=== PATIENT | female | born 1960 | race Two or more races ===

== ENCOUNTER 2017-04-28 22:40 | Emergency (ER) | payer OTHER, MEDICAID ==
[~2017-04-28] VITALS: Ht 160 cm; Wt 97.1 kg
[2017-04-29] MEDS: ONDANSETRON HCL 4 MG/2 ML VIAL IV ONE (00:51)
[2017-04-29] MEDS: HYDROmorphone HCL 2 MG/ML VL IV ONE ×2 (00:51→02:21)
[2017-04-29] MEDS: MORPHINE SULF INJ 2 MG/ML SYRINGE 1ML IV ONE (04:50)
[2017-04-29] MEDS: diphenhdrAMINE HCL 50 MG/1 ML VL IV ONE (04:55)
[2017-04-29] MEDS: LOSARTAN POTASSIUM 50 MG TAB PO ONE (05:32)
[2017-04-29 05:55] VITALS: BP 136/83
== END 2017-04-29 06:07 | disposition home or self-care (01) ==
LOC: ER 22:47
DX: S52.615A Nondisplaced fracture of left ulna styloid process, initial encounter for closed fracture (principal); S52.502A Unspecified fracture of the lower end of left radius, initial encounter for closed fracture; S52.602A Unspecified fracture of lower end of left ulna, initial encounter for closed fracture; W01.0XXA Fall on same level from slipping, tripping and stumbling without subsequent striking against object, initial encounter; Y93.89 Activity, other specified; Y99.8 Other external cause status; Y92.89 Other specified places as the place of occurrence of the external cause
CPT/HCPCS: 29125; 73090; 96374; 96375; 96376; 99284; J1170; J2405

== ENCOUNTER 2019-05-10 18:22 | Emergency (ER) | payer MEDICAID, OTHER ==
[~2019-05-10] VITALS: Ht 154.9 cm; Wt 113.4 kg
[2019-05-10 18:33] VITALS: BP 151/103
[2019-05-10] MEDS: KETOROLAC TROMETH 60MG/2ML VIAL IM ONE (21:27)
[2019-05-10] MEDS: methylPREDNISolone SOD SUCC 125 MG/2 ML VL IM ONE (21:27)
== END 2019-05-10 23:57 | disposition home or self-care (01) ==
LOC: EDBD 18:22 → ER 18:26
DX: S72.492A Other fracture of lower end of left femur, initial encounter for closed fracture (principal); S82.192A Other fracture of upper end of left tibia, initial encounter for closed fracture; Z88.6 Allergy status to analgesic agent; W19.XXXA Unspecified fall, initial encounter; Y93.89 Activity, other specified; Y92.89 Other specified places as the place of occurrence of the external cause; Y99.8 Other external cause status
CPT/HCPCS: 73562; 96372; 99283; J1885; J2930

== ENCOUNTER 2020-05-05 15:16 | Emergency (ER) | payer MEDICAID, OTHER ==
[~2020-05-05] VITALS: Ht 160 cm; Wt 101.6 kg
[2020-05-05] MEDS ORDERED: HYDROcodone-ACET 10/325MG TAB PO ONE (16:30)
[2020-05-05 17:21] LABS: Basophils # (auto) 0.1 10 ^3/uL (0-0.2); Eosinophils # (auto) 0.1 10 ^3/uL (0-0.8); Eosinophils % (auto) 1.7 % (0.0-7.0); Lymphocytes # (auto) 1.1 10 ^3/uL (0.4-5.4); Mean Corpuscular Hemoglobin 34.8 pg (28.0-32.0)
[2020-05-05 17:22] LABS: Basophils % (auto) 1.1 % (0.0-2.0); Hemoglobin 11.7 g/dL (12.2-16.2); Lymphocytes % (auto) 16.7 % (10.0-50.0); Mean Corpuscular Hgb Conc. 34.4 g/dL (32.0-36.0); Mean Corpuscular Volume 101.1 fL (80.0-100.0); Monocytes # (auto) 0.8 10 ^3/uL (0-1.3); Monocytes % (auto) 11.4 % (0.0-12.0); Neutrophils # (auto) 4.6 10 ^3/uL (1.6-8.6); Neutrophils % (auto) 69.1 % (37.0-80.0); Platelet Count (auto) 360 10^3/uL (140-450); Red Blood Cells 3.37 10^6/uL (4.0-5.20); Red Cell Distribution Width 13.9 % (11.8-14.3); White Blood Cell 6.6 10^3/uL (4.4-10.8)
[2020-05-05 17:34] LABS: Albumin 3.2 g/dL (3.4-5.0); Anion Gap 6 (5-15); Blood Urea Nitrogen 6 mg/dL (7-18); Calcium 8.5 mg/dL (8.5-10.1); Carbon Dioxide 27 mmol/L (21-32); Chloride 99 mmol/L (98-107); Glucose 106 mg/dL (74-106); Potassium 3.8 mmol/L (3.5-5.1); Sodium 132 mmol/L (136-145)
[2020-05-05 17:43] LABS: Alanine Aminotransferase 16 U/L (13-56); Alkaline Phosphatase 147 U/L (45-117); Aspartate Aminotransferase 25 U/L (15-37); BUN/Creatinine Ratio 7.9; Bilirubin, Total 0.5 mg/dL (0.2-1.0); GFR African American 99 mL/min; GFR Non-African American 82 mL/min; Total Protein 7.8 g/dL (6.4-8.2)
[2020-05-05 18:01] LABS: INR 1.1 (0.9-1.15); Partial Thromboplastin Time 30.9 sec (23.0-31.2)
[2020-05-05 18:19] VITALS: BP 175/65
== END 2020-05-05 18:23 | disposition home or self-care (01) ==
LOC: ER 15:16
DX: S82.202A Unspecified fracture of shaft of left tibia, initial encounter for closed fracture (principal); S82.402A Unspecified fracture of shaft of left fibula, initial encounter for closed fracture; E86.0 Dehydration; W18.39XA Other fall on same level, initial encounter; Y93.89 Activity, other specified; Y92.89 Other specified places as the place of occurrence of the external cause; Y99.8 Other external cause status
CPT/HCPCS: 36415; 73590; 80053; 83880; 84484; 85025; 85610; 85730; 93971

== ENCOUNTER 2022-04-13 14:43 | Inpatient (IN) | payer MEDICAID, OTHER ==
[~2022-04-13] VITALS: Ht 160 cm; Wt 78.5 kg
[2022-04-13] MEDS ORDERED: SODIUM CHLORIDE 0.9% 1,000 ML IV ONE (15:00)
[2022-04-13 16:11] LABS: Albumin 3.4 g/dL (3.4-5.0); BUN/Creatinine Ratio 13.3; Calcium 8.6 mg/dL (8.5-10.1); Potassium 4.2 mmol/L (3.5-5.1)
[2022-04-13 16:12] LABS: Basophils # (auto) 0 10 ^3/uL (0-0.2); Monocytes # (auto) 0.3 10 ^3/uL (0-1.3); Neutrophils # (auto) 3.6 10 ^3/uL (1.6-8.6); Red Cell Distribution Width 14.6 % (11.8-14.3)
[2022-04-13 16:14] LABS: Bilirubin, Total 0.5 mg/dL (0.2-1.0); Total Protein 7.8 g/dL (6.4-8.2)
[2022-04-13 16:15] LABS: Basophils % (auto) 0.6 % (0.0-2.0); Eosinophils # (auto) 0 10 ^3/uL (0-0.8); Eosinophils % (auto) 0.9 % (0.0-7.0); Hematocrit 33.3 % (36.0-46.0); Hemoglobin 11.6 g/dL (12.2-16.2); Mean Corpuscular Hemoglobin 35.8 pg (28.0-32.0); Mean Corpuscular Volume 102.4 fL (80.0-100.0); Monocytes % (auto) 6.9 % (0.0-12.0); Neutrophils % (auto) 71.6 % (37.0-80.0); Nucleated Red Blood Cells % 0.4 %; Red Blood Cells 3.25 10^6/uL (4.0-5.20)
[2022-04-13 16:32] LABS: Partial Thromboplastin Time 27.3 sec (24.6-33.4)
[2022-04-13] MEDS ORDERED: LIDOCAINE 1% HCL (LOCAL ANESTH.) INJ 20ML MDV ID ONE (18:00)
[2022-04-13] MEDS ORDERED: TETANUS-DIPTH-ACEL PERTUSSIS 0.5ML SYR Tdap IM ONE (18:45)
[2022-04-13] MEDS ORDERED: cefTRIAXone 1GM/50ML D5W 50 ML IV ONE (20:30)
[2022-04-13 20:35] LABS: Urine Bacteria FEW /hpf (None Seen); Urine Blood 3+ /uL (Negative); Urine Hyaline Cast FEW /lpf (0 - 2); Urine Specific Gravity 1.013 (1.001-1.035); Urine WBC 329 /hpf (0 - 5); Urine WBC Clumps PRESENT /hpf (None Seen)
[2022-04-13] MEDS ORDERED: HYDROmorphone HCL 2 MG/ML VL/or syr IV ONE (20:45)
[2022-04-13] MEDS ORDERED: HYDROmorphone HCL 2 MG/ML VL/or syr IV PRN (23:15)
[2022-04-13] MEDS: SODIUM CHLORIDE 0.9% 1,000 ML IV SCH (23:15)
[2022-04-13] MEDS ORDERED: LORazepam 0.5 MG TAB PO PRN (23:15)
[2022-04-13] MEDS ORDERED: ACETAMINOPHEN 325 MG TAB PO PRN (23:15)
[2022-04-13] MEDS ORDERED: MAALOX PLUS or MAALOX 30 ML PO PRN (23:15)
[2022-04-13] MEDS ORDERED: TEMAZEPAM 15 MG CAP PO PRN (23:15)
[2022-04-14] MEDS: HYDROmorphone HCL 2 MG/ML VL/or syr IV PRN ×4 (00:02→20:57)
[2022-04-14 06:26] LABS: Potassium 4.1 mmol/L (3.5-5.1)
[2022-04-14 06:32] LABS: Calcium 8.5 mg/dL (8.5-10.1)
[2022-04-14] MEDS: ONDANSETRON HCL 4 MG/2 ML VIAL IV PRN ×2 (08:25→20:57)
[2022-04-14 08:38] LABS: Basophils # (auto) 0.1 10 ^3/uL (0-0.2); Basophils % (auto) 1.1 % (0.0-2.0); Eosinophils # (auto) 0.1 10 ^3/uL (0-0.8); Eosinophils % (auto) 1.3 % (0.0-7.0); Hematocrit 30.2 % (36.0-46.0); Hemoglobin 10.4 g/dL (12.2-16.2); Lymphocytes # (auto) 1.7 10 ^3/uL (0.4-5.4); Lymphocytes % (auto) 25.1 % (10.0-50.0); Mean Corpuscular Hemoglobin 35.6 pg (28.0-32.0); Mean Corpuscular Hgb Conc. 34.5 g/dL (32.0-36.0); Mean Corpuscular Volume 103.1 fL (80.0-100.0); Monocytes # (auto) 0.7 10 ^3/uL (0-1.3); Monocytes % (auto) 10.9 % (0.0-12.0); Neutrophils # (auto) 4.1 10 ^3/uL (1.6-8.6); Neutrophils % (auto) 61.6 % (37.0-80.0); Nucleated Red Blood Cells % 0.2 %; Red Blood Cells 2.93 10^6/uL (4.0-5.20); Red Cell Distribution Width 14.6 % (11.8-14.3); White Blood Cell 6.7 10^3/uL (4.4-10.8)
[2022-04-14] MEDS: cefTRIAXone 1GM/50ML D5W 50 ML IV SCH (10:15)
[2022-04-14] MEDS: SODIUM CHLORIDE 0.9% 1,000 ML IV SCH (15:55)
[2022-04-14 22:00] VITALS: BP 155/58
[2022-04-14] MEDS ORDERED: HYDR-4902 PO (22:26)
[2022-04-14] MEDS ORDERED: GABA100C9 PO (22:26)
[2022-04-14 22:27] VITALS: BP 155/58
[2022-04-14 22:30] VITALS: BP 155/58
[2022-04-14] MEDS ORDERED: diphenhdrAMINE HCL 25 MG CAP PO ONE (23:15)
[2022-04-15 05:00] VITALS: BP 180/52
[2022-04-15 06:23] LABS: INR 1.16 (0.9-1.15); Partial Thromboplastin Time 31.6 sec (24.6-33.4)
[2022-04-15 06:26] LABS: BUN/Creatinine Ratio 17.9; Potassium 3.1 mmol/L (3.5-5.1)
[2022-04-15 08:37] VITALS: BP 167/69
[2022-04-15] MEDS: HYDROmorphone HCL 2 MG/ML VL/or syr IV PRN ×3 (09:27→16:56)
[2022-04-15] MEDS: SODIUM CHLORIDE 0.9% 1,000 ML IV SCH (09:28)
[2022-04-15] MEDS ORDERED: POTASSIUM CHL 20 Meq TABLET PO ONE (10:30)
[2022-04-15] MEDS: cefTRIAXone 1GM/50ML D5W 50 ML IV SCH (10:50)
[2022-04-15 12:55] VITALS: BP 165/72
[2022-04-15] MEDS: DOCUSATE SOD 100 MG CAP PO PRN (16:55)
[2022-04-15] MEDS: amLODIPine BESYLATE 5 MG TAB PO SCH (16:55)
[2022-04-15 17:00] VITALS: BP 150/59
[2022-04-15 22:00] VITALS: BP 149/64
[2022-04-16 05:00] VITALS: BP 155/70
[2022-04-16 09:00] VITALS: BP 170/73
[2022-04-16] MEDS: cefTRIAXone 1GM/50ML D5W 50 ML IV SCH (09:53)
[2022-04-16] MEDS: amLODIPine BESYLATE 5 MG TAB PO SCH (09:54)
[2022-04-16] MEDS: HYDROmorphone HCL 2 MG/ML VL/or syr IV PRN (09:57)
[2022-04-16] MEDS ORDERED: ceFAZolin 1GM/50ML 50 ML IV ONE (12:22)
[2022-04-16] MEDS ORDERED: MIDAZOLAM HCL 2MG/2ML 2ml VIAL (1mg/ml) ONE (12:56)
[2022-04-16] MEDS ORDERED: MEPERIDINE HCL (50 MG/ML) 1 ML VIAL ONE (12:56)
[2022-04-16] MEDS ORDERED: fentaNYL CITRATE 100 MCG/2 ML VL ONE (12:56)
[2022-04-16] MEDS ORDERED: BUPIVACAINE 0.25% INJ 50ML VIAL ONE (12:57)
[2022-04-16 13:00] VITALS: BP 145/64
[2022-04-16] MEDS ORDERED: PROPOFOL 10 MG/ML 20 ML IV ONE (13:27)
[2022-04-16] MEDS ORDERED: DexAMETHasone SOD PHOS 10MG/1ML VIAL INJ ONE (13:27)
[2022-04-16] MEDS ORDERED: hydrALAZINE HCL 20 MG/ML VL IV PRN (13:30)
[2022-04-16] MEDS ORDERED: MIDAZOLAM HCL 2MG/2ML 2ml VIAL (1mg/ml) IV PRN (13:30)
[2022-04-16] MEDS ORDERED: fentaNYL CITRATE 100 MCG/2 ML VL IV PRN (13:30)
[2022-04-16] MEDS ORDERED: ONDANSETRON HCL 4 MG/2 ML VIAL IV PRN (13:30)
[2022-04-16] MEDS ORDERED: HYDROmorphone HCL 2 MG/ML VL/or syr IV PRN (13:30)
[2022-04-16] MEDS ORDERED: LABETALOL HCL 5 MG/ML 4ML SYRINGE IV PRN (13:30)
[2022-04-16] MEDS ORDERED: ePHEDrine SULFATE 50 MG/ML AMP IV PRN (13:30)
[2022-04-16] MEDS ORDERED: ACETAMINOPHEN 325 MG TAB PO PRN (14:00)
[2022-04-16] MEDS ORDERED: ONDANSETRON HCL 4 MG/2 ML VIAL IV ONE (14:30)
[2022-04-16 17:00] VITALS: BP 149/58
[2022-04-16] MEDS: DOCUSATE SOD 100 MG CAP PO PRN (19:55)
[2022-04-16] MEDS: HYDROcodone-ACET 5/325MG TAB PO PRN (19:56)
[2022-04-16 22:00] VITALS: BP 112/91
[2022-04-17 05:00] VITALS: BP 152/63
[2022-04-17] MEDS: OXYCODONE W/ ACETAMINOPHEN 5/325MG TABLET PO PRN ×2 (05:16→11:01)
[2022-04-17 09:00] VITALS: BP 154/73
[2022-04-17] MEDS: cefTRIAXone 1GM/50ML D5W 50 ML IV SCH (09:55)
[2022-04-17] MEDS: amLODIPine BESYLATE 5 MG TAB PO SCH (09:56)
[2022-04-17] MEDS ORDERED: BACDST PO (13:45)
[2022-04-17] MEDS ORDERED: HYDR-4902 PO (13:45)
[2022-04-17] MEDS: HYDROcodone-ACET 5/325MG TAB PO PRN (14:05)
[2022-04-17 17:13] VITALS: BP 133/56
[2022-04-17 19:05] VITALS: BP 133/56
== END 2022-04-17 19:30 | disposition home health service (06) | DRG 315 ==
LOC: ER 14:43 → OVERFLOW 23:12 → WEST WING 04-14 21:13
PROVIDERS: ADMIT Hospitalist; ATTEND Hospitalist
PROC: 0PSH34Z Reposition Right Radius with Internal Fixation Device, Percutaneous Approach (ICD-10-PCS; principal; 2022-04-16 13:15)
DX: S52.591A Other fractures of lower end of right radius, initial encounter for closed fracture (principal); E87.1 Hypo-osmolality and hyponatremia; S01.81XA Laceration without foreign body of other part of head, initial encounter; S52.611A Displaced fracture of right ulna styloid process, initial encounter for closed fracture; E66.9 Obesity, unspecified; E86.0 Dehydration; Z20.822 Contact with and (suspected) exposure to COVID-19; W05.0XXA Fall from non-moving wheelchair, initial encounter; M17.10 Unilateral primary osteoarthritis, unspecified knee; N39.0 Urinary tract infection, site not specified; I10 Essential (primary) hypertension; Z99.3 Dependence on wheelchair; Z88.6 Allergy status to analgesic agent; Z68.30 Body mass index [BMI] 30.0-30.9, adult; Y93.89 Activity, other specified; Y92.89 Other specified places as the place of occurrence of the external cause; Y99.8 Other external cause status
CPT/HCPCS: 12014; 36415; 70450; 71045; 72125; 73100; 76000; 80048; 80053; 81001; 83880; 84484; 85025; 85610; 85730; 87426; 90471; 90715; 93306; 96361; 96365; 96366; 96375; 96376; 97163; G0378; J0690; J0696; J1100; J2001; J2250; J2405; J2704; J3490

== ENCOUNTER → 2022-06-04 | Day surgery (SDC) | payer MEDICAID ==
[~2022-06-04] VITALS: Ht 160 cm; Wt 78.9 kg
[~2022-06-04] MED LIST: ASCO500T11 PO; BACL20TA PO; BENA20TA14 PO; BUPIVACAINE 0.5% P/F INJ 10 ML VIAL ONE; CALC667C5 PO; CHOL200021 PO; DexAMETHasone SOD PHOS 10MG/1ML VIAL INJ ONE; GABA-339 PO; HYDR-4902 PO; HYDROmorphone HCL 2 MG/ML VL/or syr IV PRN; LIDOCAINE W/ EPINEPHRINE 2% INJ 20ML VIAL ONE; METOCLOPRAMIDE HCL 5MG/ml INJ 2ml VIAL IV PRN; MIDAZOLAM HCL 2MG/2ML 2ml VIAL (1mg/ml) ONE; MORPHINE SULFATE INJ 2 MG/ml SYRG IV PRN; ONDANSETRON HCL 4 MG/2 ML VIAL ONE; PANT40TA2 PO; PROPOFOL 10 MG/ML 20 ML IV ONE; SIMV-8 PO; SODIUM CHLORIDE LOCK 10 ML ONE; VENL1TAB99 PO; ceFAZolin 1GM/50ML 100 ML IV ONE; fentaNYL CITRATE 100 MCG/2 ML VL ONE
[2022-06-04 14:00] VITALS: BP 162/59
== END | disposition home or self-care (01) ==
LOC: SUR 10:09
PROVIDERS: ATTEND Orthopaedic Surgery
DX: S52.501D Unspecified fracture of the lower end of right radius, subsequent encounter for closed fracture with routine healing (principal); I10 Essential (primary) hypertension; F41.8 Other specified anxiety disorders; E78.5 Hyperlipidemia, unspecified; M79.7 Fibromyalgia; Z79.899 Other long term (current) drug therapy; Z98.51 Tubal ligation status; Z91.040 Latex allergy status; Z47.2 Encounter for removal of internal fixation device; Z98.891 History of uterine scar from previous surgery; Z87.891 Personal history of nicotine dependence; Z98.890 Other specified postprocedural states; Z20.822 Contact with and (suspected) exposure to COVID-19; X58.XXXA Exposure to other specified factors, initial encounter; Y92.89 Other specified places as the place of occurrence of the external cause; Y93.9 Activity, unspecified; Y99.8 Other external cause status
CPT/HCPCS: 20680; J0690; J1100; J2250; J2405; J2704; J3010; J3490; U0003

== ENCOUNTER 2024-07-01 11:44 | Inpatient (IN) | payer OTHER, MEDICAID ==
[~2024-07-01] VITALS: Ht 160 cm; Wt 100.0 kg
[~2024-07-01 11:44] MED LIST changes: +BENA-36 PO; -BENA20TA14 PO; -BUPIVACAINE 0.5% P/F INJ 10 ML VIAL ONE; -DexAMETHasone SOD PHOS 10MG/1ML VIAL INJ ONE; -HYDROmorphone HCL 2 MG/ML VL/or syr IV PRN; -LIDOCAINE W/ EPINEPHRINE 2% INJ 20ML VIAL ONE; -METOCLOPRAMIDE HCL 5MG/ml INJ 2ml VIAL IV PRN; -MIDAZOLAM HCL 2MG/2ML 2ml VIAL (1mg/ml) ONE; -MORPHINE SULFATE INJ 2 MG/ml SYRG IV PRN; -ONDANSETRON HCL 4 MG/2 ML VIAL ONE; -PROPOFOL 10 MG/ML 20 ML IV ONE; -SIMV-8 PO; +SIMV20TA20 PO; -SODIUM CHLORIDE LOCK 10 ML ONE; -ceFAZolin 1GM/50ML 100 ML IV ONE; -fentaNYL CITRATE 100 MCG/2 ML VL ONE
--- NOTE | 2024-07-01 12:07 | ED.PDOC ---
History of Present Illness HPI Comments 64 y/o F, BIBA with PMHX of HTN presents to the ED for CC of generalized weakness. Per EMS, patient is coming from home where she experienced an episode of vertigo at 0100 today (07/01/24) followed by weakness and inability to ambulate at 0600. Patient states, that she has had pervious symptoms of ear ringing and headache x3days; unsure if symptoms are related. Patient denies nausea, vomiting, fever, chills, body-aches, or sweats. No other associated symptoms, modifiers, recent injuries or sick contacts at this time. Chief Complaint: General Weakness Time Seen by MD: 12:00 Primary Care Provider: SETH Villavicencio Notes: Nurses Notes, Salvage Cutter Notes, Medications, Allergies Allergies: Coded Allergies: Latex (Verified Allergy, Unknown, 04/16/22) Home Meds Active Scripts Hydrocodone-Acetaminophen (Hydrocodone Bitartrate/AC 5-325 mg) 1 Tab Tab, 1 TAB PO Q6HP PRN, #14 TAB Prov:VINICIO MOORE MD 04/17/22 Reported Medications Venlafaxine Hydrochloride (Venlafaxine Hcl) 75 Mg Tab, 75 MG PO BID, TAB 05/31/22 Calcium Acetate (PHOSLO CAPSULE) 667 Mg Cp, 667 MG PO, CAP 05/31/22 Ascorbic Acid (VITAMIN C TABLET) 500 Mg Tb, 500 MG PO DAILY, TAB 05/31/22 Cholecalciferol (D3) Unknown Strength Tab, PO, TAB 05/31/22 Benazepril Hcl (Benazepril Hcl) 20 Mg Tab, 20 MG PO DAILY, TAB 05/31/22 Pantoprazole Sodium Sesquihydr (Protonix) 40 Mg Tab, 40 MG PO DAILY, #30 TAB 05/31/22 Simvastatin (Simvastatin) 20 Mg Tab, 20 MG PO QPM, TAB 05/31/22 Baclofen (Baclofen) 20 Mg Tab, 10 MG PO BID, TAB 05/31/22 Gabapentin (Gabapentin) 600 Mg Tab, 600 MG PO BID, TAB 05/31/22 Information Source: Patient, Emergency Med Personnel Mode of Arrival: EMS Severity: Moderate Timing: Hours Duration: Since onset Prehospital treatment: None Past Medical History PAST MEDICAL HISTORY: HTN Surgical History: Denies all surgeries PRACTICE LEAD History: Denies all PRACTICE LEAD Hx, Unknown Family History Family History: Unknown Social History Smoker: Non-Smoker Alcohol: Denies ETOH Use Drugs: Denies Drug Use Lives In: Home Constitutional: reports: weakness; denies: chills, diaphoresis, fatigue, fever, malaise, sweats, others EENTM: reports: ear ringing; denies: blurred vision, double vision, ear bleeding, ear discharge, ear drainage, ear pain, eye pain, eye redness, hearing loss, mouth pain, mouth swelling, nasal discharge, nose bleeding, nose congestion, nose pain, photophobia, tearing, throat pain, throat swelling, voice changes, others Respiratory: denies: cough, hemoptysis, orthopnea, SOB at rest, shortness of breath, SOB with excertion, stridor, wheezing, others Cardiovascular: denies: chest pain, dizzy spells, diaphoresis, Dyspnea on exertion, edema, irregular heart beat, left arm pain, lightheadedness, palpitations, PND, syncope, others Gastrointestinal: denies: abdomen distended, abdominal pain, blood streaked bowels, constipated, diarrhea, dysphagia, difficulty swallowing, hematemesis, melena, nausea, poor appetite, poor fluid intake, rectal bleeding, rectal pain, vomiting, others Genitourinary: denies: abnormal vagina bleeding, burning, dyspareunia, dysuria, flank pain, frequency, hematuria, incontinence, pain, , vagina discharge, urgency, others Neurological: reports: headache; denies: dizziness, fainting, left sided numbness, left sided weakness, numbness, paresthesia, pre-existing deficit, right sided numbness, right sided weakness, seizure, speech problems, tingling, tremors, weakness, others Musculoskeletal: denies: back pain, gout, joint pain, joint swelling, muscle pain, muscle stiffness, neck pain, others Integumetry: denies: bruises, change in color, change in hair/nails, dryness, laceration, lesions, lumps, rash, wounds, others Allergic/Immunocompromised: denies: Difficulty Healing, Frequent Infections, Hives, Itching, others Hematologic/Lymphatic: denies: anemia, blood clots, easy bleeding, easy bruising, swollen glands, others Endocrine: denies: excessive hunger, excessive sweating, excessive thirst, excessive urination, flushing, intolerance to cold, intolerance to heat, unexplained weight gain, unexplained weight loss, others Psychiatric: denies: anxiety, bipolar disorder, depression, hopeless, panic disorder, schizophrenia, sleepless, suicidal, others All Other Systems: Reviewed and Negative Physical Exam General Appearance: Moderate Distress HEENT: Normal ENT Inspection, Pharynx Normal, TMs Normal Neck: Full Range of Motion, Non-Tender, Normal, Normal Inspection Respiratory: Chest Non-Tender, Lungs Clear, No Accessory Muscle Use, No Respiratory Distress, Normal Breath Sounds Cardiovascular: No Edema, No JVD, No Murmur, No Gallop, Normal Peripheral Pulses, Regular Rate/Rhythm Breast Exam: Deferred Gastrointestinal: No Organomegaly, Non Tender, No Pulsatile Mass, Normal Bowel Sounds, Soft Genitalia: Deferred Pelvic: Deferred Rectal: Deferred Extremities: No calf tenderness, No pedal edema Musculoskeletal : Apperance: Normal Neurologic: Alert Cerebellar Function: NOT DONE Reflexes: NOT DONE Skin: Normal Color Peripheral Pulses: 3+ Radial (R), 3+ Radial (L) Lymphatic: No Adenopathy Was a procedure done? Was a procedure done?: No Differential Dx Considerations may include: Autonomic disorder Electrolyte imbalance X-Ray, Labs, Meds, VS Vital Signs Date Time Temp Pulse Resp B/P (MAP) Pulse Ox O2 Delivery O2 Flow Rate FiO2 07/01/24 12:03 97.7 93 22 191/97 (128) 94 97.7 Lab Test 07/01/24 12:40 Range/Units White Blood Count 3.6 L 4.4-10.8 10^3/uL Red Blood Count 3.35 L 4.0-5.20 10^6/uL Hemoglobin 12.0 L 12.2-16.2 g/dL Hematocrit 34.1 L 36.0-46.0 % Mean Corpuscular Volume 101.9 H 80.0-100.0 fL Mean Corpuscular Hemoglobin 35.7 H 28.0-32.0 pg Mean Corpuscular Hemoglobin Concent 35.1 32.0-36.0 g/dL Red Cell Distribution Width 14.0 11.8-14.3 % Platelet Count 118 L 140-450 10^3/uL Mean Platelet Volume 7.4 6.9-10.8 fL Neutrophils (%) (Auto) 60.7 37.0-80.0 % Lymphocytes (%) (Auto) 24.5 10.0-50.0 % Monocytes (%) (Auto) 9.4 0.0-12.0 % Eosinophils (%) (Auto) 4.5 0.0-7.0 % Basophils (%) (Auto) 0.9 0.0-2.0 % Neutrophils # (Auto) 2.2 1.6-8.6 10 ^3/uL Lymphocytes # (Auto) 0.9 0.4-5.4 10 ^3/uL Monocytes # (Auto) 0.3 0-1.3 10 ^3/uL Eosinophils # (Auto) 0.2 0-0.8 10 ^3/uL Basophils # (Auto) 0 0-0.2 10 ^3/uL Nucleated Red Blood Cells 0.1 % Sodium Level 131 L 136-145 mmol/L Potassium Level 4.2 3.5-5.1 mmol/L Chloride Level 97 L 98-107 mmol/L Carbon Dioxide Level 28 20-31 mmol/L Anion Gap 6 5-15 Blood Urea Nitrogen < 5 L 9-23 mg/dL Creatinine 0.72 0.550-1.02 mg/dL Glomerular Filtration Rate Calc 92 >90 mL/min BUN/Creatinine Ratio 6.9 L 10.0-20.0 Serum Glucose 109 H 74-106 mg/dL Calcium Level 9.3 8.7-10.4 mg/dL Troponin I High Sensitivity 9 </=34 ng/L Patient alert. Continues to be dizzy. Vitals stable. Answering questions. Blood pressure elevated. Was given labetalol. Was given meclizine. She does have decreased muscle strength of the lower extremities. She has not been ambulating. No leg swelling. Cardiac marker within normal limits. Reviewed her history. Explained to the patient. Continue monitoring. Chest x-ray reviewed does not show any acute changes. Time of 1ST Reevaluation: 12:30 Reevaluation 1ST: Unchanged Patient Education/Counseling: Diagnosis, Treatment Family Education/Counseling: No Family Present Departure 1 Departure Time of Disposition: 14:36 Impression: Primary Impression: Autonomic disorder Additional Impression: Generalized weakness Disposition: ADMITTED INPATIENT Admit to: Med Surg Condition: Guarded Critical Care Note Critical Care Time?: No Stability Stability form required: No Heart Score Heart Score: Heart Score Response (Comments) Value History Slightly Suspicious 0 EKG Normal 0 Age >65 2 Risk Factors >3 or Hx ASHD 2 Troponin Normal limit 0 Total 4 I personally scribed for EHSAN ESCOBAR MD ([email or web address]) on 07/01/24 at 12:07. Electronically submitted by Marley Henriquez ([email or web address]). EHSAN ESCOBAR MD Jul 01, 2024 12:07
--- NOTE | 2024-07-01 12:43 | DVH ---
CHEST RADIOGRAPH Indication: sob Technique: Single frontal view of the chest was obtained COMPARISON: CHEST PORTABLE on DOS: 04/13/22, CXRP on DOS: 04/13/22 FINDINGS: Lines and Tubes: None Lungs: Clear Pleura: No effusion. No pneumothorax. Cardiomediastinal contours: Unremarkable Bones: Unremarkable IMPRESSION: No acute disease.
[2024-07-01 12:58] LABS: Basophils # (auto) 0 10 ^3/uL (0-0.2); Eosinophils # (auto) 0.2 10 ^3/uL (0-0.8); Lymphocytes # (auto) 0.9 10 ^3/uL (0.4-5.4); Monocytes # (auto) 0.3 10 ^3/uL (0-1.3)
[2024-07-01 13:01] LABS: Basophils % (auto) 0.9 % (0.0-2.0); Eosinophils % (auto) 4.5 % (0.0-7.0); Hematocrit 34.1 % (36.0-46.0); Lymphocytes % (auto) 24.5 % (10.0-50.0); Mean Corpuscular Hemoglobin 35.7 pg (28.0-32.0); Mean Corpuscular Hgb Conc. 35.1 g/dL (32.0-36.0); Mean Corpuscular Volume 101.9 fL (80.0-100.0); Monocytes % (auto) 9.4 % (0.0-12.0); Neutrophils # (auto) 2.2 10 ^3/uL (1.6-8.6); Neutrophils % (auto) 60.7 % (37.0-80.0); Nucleated Red Blood Cells % 0.1 %; Platelet Count (auto) 118 10^3/uL (140-450); Red Blood Cells 3.35 10^6/uL (4.0-5.20); White Blood Cell 3.6 10^3/uL (4.4-10.8)
[2024-07-01 13:08] LABS: Potassium 4.2 mmol/L (3.5-5.1)
[2024-07-01 13:09] LABS: Anion Gap 6 (5-15); Calcium 9.3 mg/dL (8.7-10.4); Carbon Dioxide 28 mmol/L (20-31)
[2024-07-01 13:15] LABS: BUN/Creatinine Ratio 6.9 (10.0-20.0); Blood Urea Nitrogen < 5 mg/dL (9-23); Chloride 97 mmol/L (98-107); Glucose 109 mg/dL (74-106); Sodium 131 mmol/L (136-145)
[2024-07-01 16:55] VITALS: PULSE 90; RESP 15; O2SAT 97
--- NOTE | 2024-07-01 18:51 | ECG ---
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
[2024-07-01 19:35] LABS: Urine Bacteria FEW /hpf (None Seen); Urine Blood TRACE /uL (Negative); Urine Budding Yeast OCCASIONAL /hpf (None Seen); Urine Clarity Clear (Clear); Urine Color Light-Yellow (Yellow); Urine Protein, UAD Negative (Negative); Urine Specific Gravity 1.009 (1.001-1.035); Urine Squamous Epithelial Cell FEW /hpf (<5); Urine Urobilinogen Normal (Negative); Urine WBC 13 /HPF (0-5); Urine pH 7.5 (5.0-9.0)
[2024-07-01 19:47] VITALS: PULSE 99; RESP 19; O2SAT 97
[2024-07-01] MEDS: ACETAMINOPHEN 325 MG TAB PO ONE (21:40)
[2024-07-01] MEDS ORDERED: cefTRIAXone 1GM/50ML D5W 50 ML IV ONE (22:00)
--- NOTE | 2024-07-01 22:19 | DVHHPRES ---
History of Present Illness Resident Creating Document: BRANDON DANIELLE RESIDENT Reason for Visit: Generalized weakness History of Present Illness Patient is a 64-year-old female visiting to the ED with 1 day history of generalized weakness. According to the patient she woke up at night around 1:00 a.m. went to use the bathroom and she felt really weak unable to walk back to the bed. Patient said she felt really weak and thought completely unwell also with an associated headache she measured her blood pressure and it was extremely elevated at 191/97. Thus, prompting the visit to the today. She denies any nausea vomiting chest pain or shortness of breadth. Initial labs revealed pancytopenia, UTI and a 12 lead EKG revealed left bundle branch block. Chest x- ray was grossly unremarkable and CT of the head revealed did not show any acute intracranial abnormality, there is mild chronic microvascular ischemic changes. Past medical history: Hypertension, hyperlipidemia, pinched nerve, rheumatoid arthritis Past surgical history: Multiple surgeries on her wrist bilaterally Medication includes losartan, [place], gabapentin, amlodipine, pantoprazole, baclofen, simvastatin, amitriptyline venlafaxine and multivitamins Review of Systems Review of Systems Constitutional: Denies fever no chills no feeling of malaise, and pains HEENT: Denies headache, ear pain, ear discharges, conjunctivitis, nasal discharge throat pain Cardiovascular: Denies chest pain, palpitation, orthopnea, PND, or pedal edema Respiratory: Denies shortness of breath, cough cough, sputum production, hemoptysis, GI: Denies abdominal pain, nausea, vomiting, diarrhea, hematemesis, hematochezia, : Overflow incontinence; Denies frequency hematuria, Endocrine: Denies unintentional weight gain or weight loss, feeling of hot flashes, [place]: Denies easy bruising, bleeding disorders, epistaxis Musculoskeletal: Right shoulder joint pain secondary to pinched nerve, left shoulder pain due to rheumatoid arthritis Psych: No evidence of depression, iman, suicidal ideation Allergies: Coded Allergies: Latex (Verified Allergy, Unknown, 04/16/22) Morphine (Verified Allergy, Unknown, 07/02/24) Medications Current Medications Medications Dose Ordered Sig/Ashish Route Start Time Stop Time Status Last Admin Dose Admin Acetaminophen 650 mg Q6HP PRN PO 07/01/24 22:00 UNV Ondansetron HCl 4 mg Q4HP PRN IV 3/20/25 22:00 UNV Enoxaparin Sodium 40 mg DAILY SC 07/02/24 10:00 UNV Ceftriaxone Sodium 50 ml @ 100 mls/hr DAILY@09 IV 07/02/24 09:00 UNV Ascorbic Acid 500 mg DAILY PO 07/02/24 10:00 UNV Calcium Acetate 667 mg DAILY PO 07/02/24 10:00 UNV Pantoprazole Sodium 40 mg DAILY PO 07/02/24 10:00 UNV Patient Own Medication 10 mg BID PO 07/01/24 22:00 UNV Patient Own Medication 600 mg BID PO 07/01/24 22:00 UNV Patient Own Medication 20 mg QPM PO 07/02/24 18:00 UNV Patient Own Medication 75 mg BID PO 07/01/24 22:00 UNV Amlodipine Besylate 5 mg DAILY PO 07/02/24 10:00 UNV Losartan Potassium 50 mg DAILY PO 07/02/24 10:00 UNV Exam Vital Signs Vital Signs Date Time Temp Pulse Resp B/P (MAP) Pulse Ox O2 Delivery O2 Flow Rate FiO2 07/01/24 21:40 98.7 07/01/24 21:30 99 17 194/75 (114) 98 07/01/24 19:47 Room Air* 0 21 Exam General Appearance: Alert, Oriented X3, Cooperative, Moderate distress HEENT: Atraumatic, PERRLA, EOMI, Mucous membrane moist/pink Respiratory: Clear to auscultation, Normal air movement Cardiovascular: Regular rate, Normal S1, Normal S2, No murmurs, no chest wall tenderness Abdominal: NO distention, no tenderness, bowel sounds present, no scars noted Extremities: Disproportionate upper extremities Skin: No rashes, No breakdown, No significant lesion Neuro: Normal gait, Normal speech, Strength at 5/5 X4 ext, Normal tone, Sensation intact, Cranial nerves 3-12 NL, Reflexes 2+ Psych/Mental Status: Mental status NL, Mood NL Labs/Xrays Labs Test 07/01/24 18:10 07/01/24 17:18 07/01/24 12:40 Range/Units Urine Color Light-yellow Yellow Urine Clarity Clear Clear Urine pH 7.5 5.0-9.0 Urine Specific [place] 1.009 1.001-1.035 Urine Protein Negative Negative Urine Ketones Negative Negative Urine Blood Trace H Negative /uL Urine Nitrite Negative Negative Urine Bilirubin Negative Negative Urine Urobilinogen Normal Negative mg/dL Urine Leukocyte Esterase 3+ Negative /uL Urine RBC 3 0 - 4 /hpf Urine Microscopic WBC 13 H 0-5 /HPF Urine Squamous Epithelial Cells Few <5 /hpf Urine Bacteria Few H None Seen /hpf Urine Yeast (Budding) Occasional None Seen /hpf Urine Glucose Normal Normal mg/dL POC Glucose 110 H 70-106 mg/dl White Blood Count 3.6 L 4.4-10.8 10^3/uL Red Blood Count 3.35 L 4.0-5.20 10^6/uL Hemoglobin 12.0 L 12.2-16.2 g/dL Hematocrit 34.1 L 36.0-46.0 % Mean Corpuscular Volume 101.9 H 80.0-100.0 fL Mean Corpuscular Hemoglobin 35.7 H 28.0-32.0 pg Mean Corpuscular Hemoglobin Concent 35.1 32.0-36.0 g/dL Red Cell Distribution Width 14.0 11.8-14.3 % Platelet Count 118 L 140-450 10^3/uL Mean Platelet Volume 7.4 6.9-10.8 fL Neutrophils (%) (Auto) 60.7 37.0-80.0 % Lymphocytes (%) (Auto) 24.5 10.0-50.0 % Monocytes (%) (Auto) 9.4 0.0-12.0 % Eosinophils (%) (Auto) 4.5 0.0-7.0 % Basophils (%) (Auto) 0.9 0.0-2.0 % Neutrophils # (Auto) 2.2 1.6-8.6 10 ^3/uL Lymphocytes # (Auto) 0.9 0.4-5.4 10 ^3/uL Monocytes # (Auto) 0.3 0-1.3 10 ^3/uL Eosinophils # (Auto) 0.2 0-0.8 10 ^3/uL Basophils # (Auto) 0 0-0.2 10 ^3/uL Nucleated Red Blood Cells 0.1 % Sodium Level 131 L 136-145 mmol/L Potassium Level 4.2 3.5-5.1 mmol/L Chloride Level 97 L 98-107 mmol/L Carbon Dioxide Level 28 20-31 mmol/L Anion Gap 6 5-15 Blood Urea Nitrogen < 5 L 9-23 mg/dL Creatinine 0.72 0.550-1.02 mg/dL Glomerular Filtration Rate Calc 92 >90 mL/min BUN/Creatinine Ratio 6.9 L 10.0-20.0 Serum Glucose 109 H 74-106 mg/dL Calcium Level 9.3 8.7-10.4 mg/dL Troponin I High Sensitivity 9 </=34 ng/L Assessment/Plan Assessment/Plan Assessment Urinary tract infection General weakness, acute stroke ruled out Pancytopenia Hypertension Hyperlipidemia Rheumatoid arthritis Obesity Overflow incontinence Chronic pain DVT prophylaxis: Lovenox Diet: regular Plan Initiated IV antibiotics ( Ceftriaxone) Obtained CT of the head which which negative for acute stroke Repeat CBC given the pancytopenia Continue home medications for hypertension and hyperlipidemia Adequate pain control ( [place] 10-325 home medication) Goal of care discussed for more than 25 minutes: Full code Case and plan discussed with Dr. John Plan discussed with: Patient My Orders Orders - BRANDON DANIELLE RESIDENT Procedure Category Date Status Time Head Without Contrast CT 07/01/24 Logged 21:55 Admit ADMIT 07/01/24 Transmitted 21:55 Code Status CODE 07/01/24 Transmitted 21:55 Vital Signs ALBINO 07/01/24 In Process 21:55 Review Orders With ALBINO 07/01/24 In Process Adm. 21:55 Npo (Nothing By DIET 07/02/24 Transmitted Mouth) Diet Breakfast Acetaminophen Tablet PHA 07/01/24 Logged (Tylenol Tablet) 22:00 Notify Of Changes ALBINO 07/01/24 In Process From Base 21:55 Advance Directive ALBINO 07/01/24 In Process 21:55 Echo 2d Mode Cardiac US 07/01/24 Logged DOP 22:01 Lipid Panel LAB 07/01/24 Logged 21:55 Blood Culture RIYA 07/01/24 Logged 21:55 Urine Bacterial RIYA 07/01/24 In Process Culture 21:55 Patient Condition ORDERS 07/01/24 Transmitted 21:55 Allergies ALBINO 07/01/24 In Process 21:55 Ondansetron Hcl PHA 07/01/24 Logged (Zofran) 22:00 Drug Screen LAB 07/01/24 In Process 21:55 Hemoglobin A1c LAB 07/01/24 Logged 21:55 Enoxaparin Sodium PHA 07/02/24 Logged (Lovenox) 10:00 Oxygen By Nasal RT 3/20/25 Transmitted Cannula 21:55 Stat Ekg For Chest [facility] 07/01/24 In Process Pain 21:55 Notify Of Changes [facility] 07/01/24 In Process From Base 21:55 Workers' Compensation Claims Examiner For [facility] 07/01/24 In Process 24 Hours 21:55 Emergency Dysrhythmia [facility] 07/01/24 In Process Protocol 21:55 Rhythm Strips Once ALBINO 07/01/24 In Process Every Shift 21:55 Complete Blood Count LAB 07/02/24 Verified 04:00 Comprehensive LAB 07/02/24 Verified Metabolic Panel 04:00 PTPTT LAB 07/02/24 Verified 04:00 Thyroid Stimulating LAB 07/01/24 Logged Hormone 21:55 Vitamin B12 LAB 07/01/24 Logged 21:55 Vitamin D, 25-Hydroxy LAB 07/01/24 Logged 21:55 Ceftriaxone 1gm/50ml PHA 07/02/24 Logged D5w (Rocephin) 09:00 Ceftriaxone 1gm/50ml PHA 07/01/24 Logged D5w (Rocephin) 22:00 Ascorbic Acid Tablet PHA 07/02/24 Logged (Vitamin C Tablet) 10:00 Calcium Acetate PHA 07/02/24 Logged Capsule (Phoslo 10:00 Pantoprazole Tablet PHA 07/02/24 Logged (Protonix Tablet) 10:00 (Nf) Baclofen PHA 07/01/24 Logged 22:00 (Nf) Gabapentin PHA 07/01/24 Logged 22:00 (Nf) Simvastatin PHA 07/02/24 Logged 18:00 (Nf) Venlafaxine PHA 07/01/24 Logged Hydrochloride 22:00 Amlodipine Tablet PHA 07/01/24 Logged (Norvasc Tablet) 22:00 Amlodipine Tablet PHA 07/02/24 Logged (Norvasc Tablet) 10:00 Losartan Tablet PHA 07/01/24 Logged (Cozaar Tablet) 22:30 Losartan Tablet PHA 07/02/24 Logged (Cozaar Tablet) 10:00 Date of Service: Jul 01, 2024 Billing Provider: ARMANDO JOHN MD Common Visit Codes: [id number] INP/OBS CARE (HIGH) Secondary Visit Codes: [id number] CARE PLAN 30 MINUTES BRANDON DANIELLE RESIDENT Jul 01, 2024 22:19 ARMANDO JOHN MD Jul 02, 2024 18:46
[2024-07-01 22:24] LABS: Opiate Scree,Urine Neg (NEGATIVE)
[2024-07-01 22:30] LABS: Amphetamine Screen, Urine Neg (NEGATIVE); Barbiturate Scree,Urine Neg (NEGATIVE); Benzodiazephine Screen, Urine Neg (NEGATIVE); Cannabinoid Screen, Urine Neg (NEGATIVE); Cocaine Screen, Urine Neg (NEGATIVE); Phencyclidine Screen, Urine Neg (NEGATIVE)
[2024-07-01] MEDS: LOSARTAN POTASSIUM 50 MG TAB PO ONE (22:35)
[2024-07-01] MEDS: cefTRIAXone 1GM/50ML D5W 50 ML IV ONE (22:35)
[2024-07-01] MEDS: amLODIPine BESYLATE 5 MG TAB PO ONE (22:36)
[2024-07-01] MEDS: HYDROcodone-ACET 10/325MG TAB PO ONE (22:39)
[2024-07-01 22:54] LABS: Triglycerides 58 mg/dL (< 150)
[2024-07-01 22:55] LABS: LDL Cholesterol 33 mg/dL (< 100)
[2024-07-01 22:56] LABS: Cholesterol 134 mg/dL (< 200)
[2024-07-01 22:57] LABS: HDL Cholesterol 86 mg/dL (40-59)
[2024-07-01] MEDS: ATORVASTATIN 20 MG TAB PO ONE (22:57)
--- NOTE | 2024-07-01 23:21 | DVH ---
CT HEAD WITHOUT CONTRAST INDICATION: LEFT SIDED WEAKNESS COMPARISON: HEAD WITHOUT CONTRAST on DOS: 04/13/22 TECHNIQUE: CT of the head without intravenous contrast. RADIATION DOSE: CTDIvol: mGy, DLP: mGy*cm FINDINGS: There is no evidence of intracranial hemorrhage, acute infarct, extra-axial collection, mass effect, midline shift, herniation or hydrocephalus. Mild chronic white matter microvascular ischemic changes . Mild ventricular and sulcal enlargement related to mild cerebral volume loss. Visualized paranasal sinuses and mastoid air cells are clear. Soft tissues and osseous structures are unremarkable. IMPRESSION: No acute intracranial abnormality identified. Mild chronic microvascular ischemic changes.
[2024-07-02] VITALS (12 sets, daily range): BP systolic 127–202; BP diastolic 37–99; PULSE 85–108; RESP 12–20; TEMP 97.5–98.7; O2SAT 90–100
[2024-07-02] MEDS: hydrALAZINE HCL 20 MG/ML VL IV PRN (02:15)
[2024-07-02] MEDS: HYDROcodone-ACET 10/325MG TAB PO PRN ×2 (04:13→10:11)
[2024-07-02 06:04] LABS: Basophils # (auto) 0 10 ^3/uL (0-0.2); Hemoglobin 11.4 g/dL (12.2-16.2); Lymphocytes # (auto) 0.8 10 ^3/uL (0.4-5.4); Platelet Count (auto) 133 10^3/uL (140-450); Red Cell Distribution Width 13.8 % (11.8-14.3)
[2024-07-02 06:06] LABS: Basophils % (auto) 0.4 % (0.0-2.0); Eosinophils # (auto) 0.2 10 ^3/uL (0-0.8); Eosinophils % (auto) 3.6 % (0.0-7.0); Hematocrit 32.8 % (36.0-46.0); Lymphocytes % (auto) 16.4 % (10.0-50.0); Mean Corpuscular Hemoglobin 35.5 pg (28.0-32.0); Mean Corpuscular Hgb Conc. 34.7 g/dL (32.0-36.0); Mean Corpuscular Volume 102.4 fL (80.0-100.0); Monocytes # (auto) 0.4 10 ^3/uL (0-1.3); Monocytes % (auto) 9.1 % (0.0-12.0); Neutrophils # (auto) 3.4 10 ^3/uL (1.6-8.6); Neutrophils % (auto) 70.5 % (37.0-80.0); Nucleated Red Blood Cells % 0.1 %; Red Blood Cells 3.21 10^6/uL (4.0-5.20); White Blood Cell 4.8 10^3/uL (4.4-10.8)
[2024-07-02 06:21] LABS: INR 1.08 (0.9-1.15); Partial Thromboplastin Time 27.4 SEC (24.5-34.5); Prothrombin Time 11.4 sec (9.3-11.8)
[2024-07-02 06:26] LABS: Alanine Aminotransferase 32 U/L (7-40); Albumin 3.6 g/dL (3.2-4.8); Anion Gap 6 (5-15); Calcium 9.2 mg/dL (8.7-10.4); Carbon Dioxide 27 mmol/L (20-31); Potassium 4.1 mmol/L (3.5-5.1); Total Protein 6.8 g/dL (5.7-8.2)
[2024-07-02 06:27] LABS: Alkaline Phosphatase 127 U/L (46-116); Aspartate Aminotransferase 61 U/L (13-40); Blood Urea Nitrogen 6 mg/dL (9-23); Chloride 95 mmol/L (98-107); Glucose 112 mg/dL (74-106); Sodium 128 mmol/L (136-145)
[2024-07-02 08:34] LABS: Erythrocyte Sedimentation Rate 15 mm/hr (0-20)
[2024-07-02] MEDS ORDERED: LOSARTAN POTASSIUM 50 MG TAB PO SCH (10:00)
[2024-07-02] MEDS ORDERED: PATIENTS OWN MEDICATION (Benazepril Hcl 20 MG) PO SCH (10:00)
[2024-07-02] MEDS: amLODIPine BESYLATE 5 MG TAB PO SCH (10:09)
[2024-07-02] MEDS: VENLAFAXINE HCL 37.5MG TABLET PO SCH (10:09)
[2024-07-02] MEDS: CALCIUM ACETATE 667 MG CAP PO SCH (10:09)
[2024-07-02] MEDS: PANTOPRAZOLE 40 MG TAB PO SCH (10:09)
[2024-07-02] MEDS: GABAPENTIN 300 MG CAP PO SCH (10:09)
[2024-07-02] MEDS: BACLOFEN 10 MG TAB PO SCH (10:09)
[2024-07-02] MEDS: ASCORBIC ACID 500 MG TAB PO SCH (10:10)
[2024-07-02] MEDS: LOSARTAN POTASSIUM 50 MG TAB PO SCH (10:10)
[2024-07-02] MEDS: ENOXAPARIN SOD 40 MG/0.4 ML SYRINGE SC SCH (10:10)
--- NOTE | 2024-07-02 10:48 | DVHPNRES ---
Progress Note Date Seen: Jul 02, 2024 Resident Creating Document: TAWANA CALLEJAS RESIDENT Has the PT tested + for MRSA If YES, has PT been informed?: No Medical Necessity Reason Pt with a Central, PICC or Fol: No Subjective Review of Systems Patient is a 64-year-old female visiting to the ED with 1 day history of generalized weakness. According to the patient she woke up at night around 1:00 a.m. went to use the bathroom and she felt really weak unable to walk back to the bed. Patient said she felt really weak and thought completely unwell also with an associated headache she measured her blood pressure and it was extremely elevated at 191/97. Thus, prompting the visit to the today. She denies any nausea vomiting chest pain or shortness of breadth. Initial labs revealed pancytopenia, UTI and a 12 lead EKG revealed left bundle branch block. Chest x- ray was grossly unremarkable and CT of the head revealed did not show any acute intracranial abnormality, there is mild chronic microvascular ischemic changes. Past medical history: Hypertension, hyperlipidemia, pinched nerve, rheumatoid arthritis Past surgical history: Multiple surgeries on her wrist bilaterally Medication includes losartan, Leroy, gabapentin, amlodipine, pantoprazole, baclofen, simvastatin, amitriptyline venlafaxine and multivitamins Objective vital signs Vital Sign Date Time Temp Pulse Resp B/P (MAP) Pulse Ox O2 Delivery O2 Flow Rate FiO2 07/02/24 10:10 146/35 07/02/24 09:20 98.0 98 17 94 98.0 07/02/24 01:28 Room Air* 0 21 Total Intake and Output 07/01/24 07/01/24 07/02/24 15:00 23:00 07:00 Intake Total 50 ml Output Total 400 ml Balance -350 ml medications Current Medications Medications Dose Ordered Sig/Ashish Route Start Time Stop Time Status Last Admin Dose Admin Acetaminophen 650 mg Q6HP PRN PO 07/01/24 22:00 Ondansetron HCl 4 mg Q4HP PRN IV 07/01/24 22:00 Enoxaparin Sodium 40 mg DAILY SC 07/02/24 10:00 07/02/24 10:10 40 MG Ceftriaxone Sodium 50 ml @ 100 mls/hr DAILY@2100 IV 07/02/24 21:00 Ascorbic Acid 500 mg DAILY PO 07/02/24 10:00 07/02/24 10:10 500 MG Calcium Acetate 667 mg DAILY PO 07/02/24 10:00 07/02/24 10:09 667 MG Pantoprazole Sodium 40 mg DAILY PO 07/02/24 10:00 07/02/24 10:09 40 MG Baclofen 10 mg BID PO 07/02/24 10:00 07/02/24 10:09 10 MG Gabapentin 600 mg BID PO 07/02/24 10:00 07/02/24 10:09 600 MG Atorvastatin Calcium 10 mg HS PO 07/02/24 22:00 Venlafaxine HCl 75 mg BID PO 07/02/24 10:00 07/02/24 10:09 75 MG Amlodipine Besylate 5 mg DAILY PO 07/02/24 10:00 07/02/24 10:09 5 MG Hydralazine HCl 10 mg Q6HP PRN IV 07/02/24 01:30 07/02/24 02:15 10 MG Acetaminophen/ Hydrocodone Bitart 1 tab Q6HP PRN PO 07/02/24 04:45 07/02/24 10:11 1 TAB Losartan Potassium 50 mg BID PO 07/02/24 10:00 07/02/24 10:10 50 MG Examination General Appearance: Alert, Oriented X3, Cooperative HEENT: Atraumatic, PERRLA, EOMI, Mucous membrane moist/pink Respiratory: Clear to auscultation, Normal air movement Cardiovascular: Regular rate, Normal S1, Normal S2, No murmurs, no chest wall tenderness Abdominal: NO distention, no tenderness, bowel sounds present, no scars noted Extremities: Disproportionate upper extremities Skin: No rashes, No breakdown, No significant lesion Neuro: Normal gait, Normal speech, Strength at 5/5 X4 ext, Normal tone, Sensation intact, Cranial nerves 3-12 NL, Reflexes 2+ Psych/Mental Status: Mental status NL, Mood NL laboratory and microbiology Laboratory Tests 07/02/24 05:04 Test 07/02/24 05:04 Range/Units Serum Glucose 112 H 74-106 mg/dL Problem List/Assessment/Plan Problem List/Assessment/Plan #Urinary tract infection #General weakness, acute stroke ruled out #Pancytopenia, resolved #Hypertension #Hyperlipidemia #Rheumatoid arthritis? #Fibromyalgia? #Obesity #Overflow incontinence #Chronic pain #Heterogeneous fat containing mass in the lower pole of the right kidney measures 4.2 cm. #renal angiomyolipoma? #fat containing renal cell carcinoma? DVT prophylaxis: Lovenox Diet: regular Plan Initiated IV antibiotics ( Ceftriaxone) Obtained CT of the head which which negative for acute stroke No focal deficit Repeat CBC given the pancytopenia: mild anemia and thrombocytopenia Continue home medications for hypertension and hyperlipidemia Adequate pain control ( Leroy 10-325 home medication) CT scan ordered due to renal mass found in US Goal of care discussed for more than 25 minutes: Full code Case and plan discussed with Dr. Keen Plan discussed with: Patient, Other My Orders My Orders Orders - TAWANA CALLEJAS RESIDENT Procedure Category Date Status Time Losartan Tablet PHA 07/02/24 In Process (Cozaar Tablet) 10:00 Rheumatoid Arthritis LAB 07/02/24 In Process Factor 07:34 Kidney US 07/02/24 Taken 08:51 Pt Request For Service PT 07/02/24 Logged 09:07 Date of Service: Jul 02, 2024 Billing Provider: JUAN KEEN DO Common Visit Codes: [id number] INP/OBS CARE(HIGH) TAWANA CALLEJAS RESIDENT Jul 02, 2024 10:48 JUAN KEEN DO Jul 04, 2024 20:15
--- NOTE | 2024-07-02 11:35 | DVH ---
INDICATION: ruyle out hydronephrosis TECHNIQUE: Multiple real-time sonographic images of the kidneys and bladder were obtained. COMPARISON: None FINDINGS: The right kidney measures 10.0 cm in length, which is normal in size. There is increased ec hogenicity of the right kidney. No hydronephrosis. Echogenic right renal mass measuring 4.5 cm. The left kidney measures 9.0 cm in length, which is normal in size. There is increased echogenicity o f the left kidney. No hydronephrosis. Urinary bladder is decompressed with [place] catheter. IMPRESSION: Indeterminate echogenic right renal mass measuring 4.5 cm versus prominent fat. Recommend further ev aluation with CT.
--- NOTE | 2024-07-02 15:21 | DVH ---
Exam: CT CT AB PEL WO CON-NO ORAL OR IV History: RENAL MASS Comparison Study: [facility] on DOS: 04/15/22 Technique: Multidetector spiral CT of the abdomen was performed from lung bases to pubic symphysis. I maging was performed without IV contrast. Axial, coronal and sagittal multiplanar reformats were obta ined from the axial data set by the technologist. Radiation Dose : 1. Abdomen/Pelvis: CTDIvol 33.1 mGy, DLP 1686.04 mGy*cm. Findings: Evaluation of solid organs is limited due to lack of intravenous contrast use. Lung Bases: Cardiomegaly. Coronary artery calcifications. Vascular calcifications of the aorta. Depen dent atelectasis. Liver: Hepatic cirrhosis. Gallbladder and Biliary Tree: Cholelithiasis noted without secondary findings of cholecystitis or linh iary obstruction. Spleen: Unremarkable Pancreas: The pancreas is grossly normal in appearance. Adrenal Glands: Unremarkable Kidneys: No hydronephrosis. Left kidney is unremarkable. Heterogeneous fat containing mass in the lo wer pole of the right kidney measures 4.2 cm. Bladder: Bladder is decompressed with a [place] catheter and cannot be adequately assessed. Bowel: The stomach is grossly normal in appearance. Small bowel and colon are normal in caliber and d istribution. The appendix is not visualized; however, no secondary findings of acute appendicitis francisco ntified. Ascites: Absent Lymphadenopathy: No mesenteric, retroperitoneal or periportal lymphadenopathy. Abdominal Wall and Mesentery: Unremarkable. Vasculature: The visualized abdominal aorta is normal in size and caliber. There is extensive athero sclerotic calcification of the aorta and its branches. Evaluation of abdominal and pelvic vessels is limited due to lack of intravenous contrast. Pelvic Organs: Unremarkable Musculoskeletal: No aggressive focal bony lesions, acute fractures or dislocation. Degenerative bernabe es of the spine. IMPRESSION: Heterogeneous fat containing mass in the lower pole of the right kidney measures 4.2 cm. Differentia l considerations could include renal angiomyolipoma or fat containing renal cell carcinoma. Radiation optimization: All CT scans at this facility use at least one of these dose optimization josee hniques: automated exposure control mA and/or kV adjustment per patient size (includes targeted exam s where dose is matched to clinical indication) or iterative reconstruction.
[2024-07-02] MEDS: SODIUM CHLORIDE 0.9% 250 ML IV ONE (16:11)
[2024-07-02] MEDS: ATORVASTATIN 20 MG TAB PO SCH (20:56)
[2024-07-02] MEDS: MELATONIN 5 MG TAB PO SCH (20:56)
[2024-07-02] MEDS: ACETAMINOPHEN 325 MG TAB PO PRN (20:58)
[2024-07-02] MEDS: cefTRIAXone 1GM/50ML D5W 50 ML IV SCH (21:10)
[2024-07-02] MEDS: ONDANSETRON HCL 4 MG/2 ML VIAL IV PRN (21:13)
[2024-07-03] VITALS (8 sets, daily range): BP systolic 108–151; BP diastolic 42–63; PULSE 88–97; RESP 12–20; TEMP 97.4–98.1; O2SAT 93–99
[2024-07-03] MEDS: METOPROLOL TARTRATE 25 MG TAB PO ONE (07:08)
[2024-07-03] MEDS: TRIAMCINOLONE ACET 0.1% TOPICAL CREAM 15GM TOP SCH (09:50)
[2024-07-03 10:42] LABS: Basophils # (auto) 0 10 ^3/uL (0-0.2); Eosinophils # (auto) 0.2 10 ^3/uL (0-0.8); Monocytes # (auto) 0.5 10 ^3/uL (0-1.3); Neutrophils # (auto) 2.5 10 ^3/uL (1.6-8.6); Nucleated Red Blood Cells % 0.1 %
[2024-07-03 10:44] LABS: Basophils % (auto) 0.3 % (0.0-2.0); Eosinophils % (auto) 5.1 % (0.0-7.0); Hematocrit 32.4 % (36.0-46.0); Hemoglobin 11.1 g/dL (12.2-16.2); Lymphocytes % (auto) 22.9 % (10.0-50.0); Mean Corpuscular Hemoglobin 35.1 pg (28.0-32.0); Mean Corpuscular Hgb Conc. 34.1 g/dL (32.0-36.0); Mean Corpuscular Volume 102.9 fL (80.0-100.0); Monocytes % (auto) 11.3 % (0.0-12.0); Neutrophils % (auto) 60.4 % (37.0-80.0); Platelet Count (auto) 127 10^3/uL (140-450); Red Blood Cells 3.14 10^6/uL (4.0-5.20); White Blood Cell 4.2 10^3/uL (4.4-10.8)
[2024-07-03 10:54] LABS: Chloride 98 mmol/L (98-107); Potassium 3.9 mmol/L (3.5-5.1)
[2024-07-03 10:55] LABS: Anion Gap 6 (5-15); Carbon Dioxide 28 mmol/L (20-31)
[2024-07-03 10:56] LABS: Calcium 8.8 mg/dL (8.7-10.4)
[2024-07-03 11:01] LABS: BUN/Creatinine Ratio 7.2 (10.0-20.0); Blood Urea Nitrogen < 5 mg/dL (9-23); Glucose 99 mg/dL (74-106); Sodium 132 mmol/L (136-145)
[2024-07-03 11:03] LABS: Alanine Aminotransferase 28 U/L (7-40); Albumin 3.6 g/dL (3.2-4.8); Alkaline Phosphatase 125 U/L (46-116); Anion Gap 7 (5-15); Aspartate Aminotransferase 46 U/L (13-40); Bilirubin, Total 0.6 mg/dL (0.2-1.0); Blood Urea Nitrogen 6 mg/dL (9-23); Calcium 8.9 mg/dL (8.7-10.4); Carbon Dioxide 27 mmol/L (20-31); Chloride 98 mmol/L (98-107); Glucose 99 mg/dL (74-106); Potassium 3.9 mmol/L (3.5-5.1); Sodium 132 mmol/L (136-145); Total Protein 6.7 g/dL (5.7-8.2)
[2024-07-03] MEDS: HYDROcodone-ACET 5/325MG TAB PO ONE (11:11)
--- NOTE | 2024-07-03 13:47 | DVHSR ---
APPROVED REPORT EXAM: Two-dimensional and M-mode echocardiogram with Doppler and color Doppler. Blood Pressure: 151/99 mmHg INDICATION Generalized Weakness Evaluate CHF RISK FACTORS Obesity: Height: 5' 3", Weight: 210 DIMENSIONS LVDd4.8 (3.8-5.7cm)LA (2D)4.5 (1.9-4.0cm)Aortic Root (2.0-3.7cm) LVDs3.6 (2.5-4.0cm)LA (MM) (1.9-4.0cm)Aortic Cusp Exc (1.5-2.0cm) EF (%) 50.0 (55-70%)Rt. Atrium3.4 (1.9-4.0cm)Asc. Aorta cm IVSd0.9 (0.7-1.1cm)RV (D) (1.8-2.4cm) PWd1.2 (0.7-1.1cm) Mitral Valve MitralMitral Stenosis E wave1.20m/sMV Mean GR.mmHg A wave1.50m/sMV Peak GR.mmHg E/A ratio0.82D MVAcm2 Aortic Valve Aortic ValveAortic Stenosis V11.10m/Chandu Mean GR.7mmHg V21.80m/Chandu Peak GR.13mmHg LVOT Diameter1.7 (1.8-2.4cm)Doppler AVA1.39cm2 Pulmonic Valve V21.30m/s Tricuspid Valve TR Velocity2.60m/s [id number] Other Information Quality : Technically LimitedRhythm : Technically limited study due to body habitus. Conclusion Technically difficult study. Difficult acoustic windows. Left atrial enlargement. Mild RV enlargement. Concentric LVH. Moderate mitral annular calcification. Calcification at the base of the posterior mitral leaflet. Left ventricular function is preserved at 50% with normal RV function. Mild anteroapical hypokinesis .
--- NOTE | 2024-07-03 15:28 | DVHPNRES ---
Progress Note Date Seen: Jul 03, 2024 Resident Creating Document: TAWANA CALLEJAS RESIDENT Has the PT tested + for MRSA If YES, has PT been informed?: No Medical Necessity Reason Pt with a Central, PICC or Fol: No Subjective Review of Systems Patient is a 64-year-old female visiting to the ED with 1 day history of generalized weakness. According to the patient she woke up at night around 1:00 a.m. went to use the bathroom and she felt really weak unable to walk back to the bed. Patient said she felt really weak and thought completely unwell also with an associated headache she measured her blood pressure and it was extremely elevated at 191/97. Thus, prompting the visit to the today. She denies any nausea vomiting chest pain or shortness of breadth. Initial labs revealed pancytopenia, UTI and a 12 lead EKG revealed left bundle branch block. Chest x- ray was grossly unremarkable and CT of the head revealed did not show any acute intracranial abnormality, there is mild chronic microvascular ischemic changes. Past medical history: Hypertension, hyperlipidemia, pinched nerve, rheumatoid arthritis Past surgical history: Multiple surgeries on her wrist bilaterally Medication includes losartan, [place], gabapentin, amlodipine, pantoprazole, baclofen, simvastatin, amitriptyline venlafaxine and multivitamins Objective vital signs Vital Sign Date Time Temp Pulse Resp B/P (MAP) Pulse Ox O2 Delivery O2 Flow Rate FiO2 07/03/24 13:00 98.0 96 18 118/52 (74) 95 98.0 07/03/24 08:05 Room Air* 0 21 Total Intake and Output 07/02/24 07/02/24 07/03/24 15:00 23:00 07:00 Intake Total 1100 ml 700 ml Output Total 400 ml 1550 ml Balance 700 ml -850 ml medications Current Medications Medications Dose Ordered Sig/Ashish Route Start Time Stop Time Status Last Admin Dose Admin Acetaminophen 650 mg Q6HP PRN PO 07/01/24 22:00 07/02/24 20:58 650 MG Ondansetron HCl 4 mg Q4HP PRN IV 07/01/24 22:00 07/02/24 21:13 4 MG Enoxaparin Sodium 40 mg DAILY SC 07/02/24 10:00 07/03/24 09:50 40 MG Ceftriaxone Sodium 50 ml @ 100 mls/hr DAILY@2100 IV 07/02/24 21:00 07/02/24 21:10 100 MLS/HR Ascorbic Acid 500 mg DAILY PO 07/02/24 10:00 07/03/24 09:50 500 MG Calcium Acetate 667 mg DAILY PO 07/02/24 10:00 07/03/24 09:50 667 MG Pantoprazole Sodium 40 mg DAILY PO 07/02/24 10:00 07/03/24 09:50 40 MG Baclofen 10 mg BID PO 07/02/24 10:00 07/03/24 09:50 10 MG Gabapentin 600 mg BID PO 07/02/24 10:00 07/03/24 09:50 600 MG Atorvastatin Calcium 10 mg HS PO 07/02/24 22:00 07/02/24 20:56 10 MG Venlafaxine HCl 75 mg BID PO 07/02/24 10:00 07/03/24 09:50 75 MG Amlodipine Besylate 5 mg DAILY PO 07/02/24 10:00 07/03/24 09:51 5 MG Hydralazine HCl 10 mg Q6HP PRN IV 07/02/24 01:30 07/02/24 02:15 10 MG Acetaminophen/ Hydrocodone Bitart 1 tab Q6HP PRN PO 07/02/24 04:45 07/02/24 18:10 1 TAB Losartan Potassium 50 mg BID PO 07/02/24 10:00 07/03/24 09:51 50 MG Melatonin 5 mg HS PO 07/02/24 22:00 07/02/24 20:56 5 MG Triamcinolone Acetonide 1 applic DAILY TOP 07/03/24 10:00 07/03/24 09:50 1 APPLIC Metoprolol Tartrate 12.5 mg DAILY PO 07/04/24 10:00 Examination General Appearance: Alert, Oriented X3, Cooperative HEENT: Atraumatic, PERRLA, EOMI, Mucous membrane moist/pink Respiratory: Clear to auscultation, Normal air movement Cardiovascular: Regular rate, Normal S1, Normal S2, No murmurs, no chest wall tenderness Abdominal: NO distention, no tenderness, bowel sounds present, no scars noted Extremities: Disproportionate upper extremities Skin: No rashes, No breakdown, No significant lesion Neuro: Normal gait, Normal speech, Strength at 5/5 X4 ext, Normal tone, Sensation intact, Cranial nerves 3-12 NL, Reflexes 2+ Psych/Mental Status: Mental status NL, Mood NL laboratory and microbiology Laboratory Tests 07/03/24 10:21 Test 07/03/24 10:21 Range/Units Serum Glucose 99 74-106 mg/dL Microbiology Date/Time Source Procedure Growth Status 07/01/24 22:25 Blood Blood Culture - Preliminary NO GROWTH AFTER 24 HOURS OF INCUBATION. Resulted 07/01/24 18:10 Voided Urine Urine Culture - Preliminary Resulted Problem List/Assessment/Plan Problem List/Assessment/Plan #Urinary tract infection #General weakness, acute stroke ruled out #Pancytopenia, resolved #Hypertension #Hyperlipidemia #Rheumatoid arthritis? #Fibromyalgia? #Obesity #Overflow incontinence #Chronic pain #Heterogeneous fat containing mass in the lower pole of the right kidney measures 4.2 cm. #renal angiomyolipoma? #fat containing renal cell carcinoma? #NSVT DVT prophylaxis: Lovenox Diet: regular Plan Initiated IV antibiotics ( Ceftriaxone) Obtained CT of the head which which negative for acute stroke No focal deficit Repeat CBC given the pancytopenia: mild anemia and thrombocytopenia Continue home medications for hypertension and hyperlipidemia Adequate pain control ( [place] 10-325 home medication) Radiology consult for biopsy of renal mass ECHO: Technically difficult study. Difficult acoustic windows. Left atrial enlargement. Mild RV enlargement. Concentric LVH. Moderate mitral annular calcification. Calcification at the base of the posterior mitral leaflet. Left ventricular function is preserved at 50% with normal RV function. Mild anteroapical hypokinesis. cardiology consult Continue BB Goal of care discussed for more than 25 minutes: Full code Case and plan discussed with Dr. Keen Plan discussed with: Patient, Other (rn) My Orders My Orders Orders - TAWANA CALLEJAS Procedure Category Date Status Time * Radiologist Consult CONS 07/03/24 Transmitted 12:54 Date of Service: Jul 03, 2024 Billing Provider: JUAN KEEN DO Common Visit Codes: [id number] INP/OBS CARE(HIGH) TAWANA CALLEJAS RESIDENT Jul 03, 2024 15:28 JUAN KEEN DO Jul 04, 2024 20:16
--- NOTE | 2024-07-03 18:38 | DVHINCON2 ---
Date of service: Jul 02, [address] Ashish Mcghee Reason for Consultation Hyponatremia History of Present Illness Bruna Hope is a 64-year-old F with a Past Medical History pertinent for Hypertension, Hyperlipidemia and Rheumatoid Arthritis who presented to the hospital with complaint of generalized weakness x 1 day. Patient states she woke up at night around 1:00 a.m and went to use the bathroom but she felt really weak unable to walk back to the bed. Denies any nausea, vomiting, chest pain or shortness of breath. While in ED, patient was found to have UTI. Initial labs also revealed pancytopenia and hyponatremia. Chest x-ray was grossly unremarkable. CT Head did not show any acute intracranial abnormality, there is mild chronic microvascular ischemic changes. Renal US this morning reported indeterminate echogenic right renal mass measuring 4.5 cm versus prominent fat. Allergies: Coded Allergies: Latex (Verified Allergy, Unknown, 04/16/22) Morphine (Verified Allergy, Unknown, 07/02/24) Home Meds Active Scripts Hydrocodone-Acetaminophen (Hydrocodone Bitartrate/AC 5-325 mg) 1 Tab Tab, 1 TAB PO Q6HP PRN, #14 TAB Prov:VINICIO MOORE MD 04/17/22 Reported Medications Venlafaxine Hydrochloride (Venlafaxine Hcl) 75 Mg Tab, 75 MG PO BID, TAB 05/31/22 Calcium Acetate (PHOSLO CAPSULE) 667 Mg Cp, 667 MG PO, CAP 05/31/22 Ascorbic Acid (VITAMIN C TABLET) 500 Mg Tb, 500 MG PO DAILY, TAB 05/31/22 Cholecalciferol (D3) Unknown Strength Tab, PO, TAB 05/31/22 Benazepril Hcl (Benazepril Hcl) 20 Mg Tab, 20 MG PO DAILY, TAB 05/31/22 Pantoprazole Sodium Sesquihydr (Protonix) 40 Mg Tab, 40 MG PO DAILY, #30 TAB 05/31/22 Simvastatin (Simvastatin) 20 Mg Tab, 20 MG PO QPM, TAB 05/31/22 Baclofen (Baclofen) 20 Mg Tab, 10 MG PO BID, TAB 05/31/22 Gabapentin (Gabapentin) 600 Mg Tab, 600 MG PO BID, TAB 05/31/22 Current Medications Current Medications Medications (Trade) Dose Ordered Sig/Ashish Route PRN Reason Start Time Stop Time Status Last Admin Ceftriaxone Sodium 50 ml @ 100 mls/hr DAILY@2100 IV 07/02/24 21:00 07/02/24 21:10 Atorvastatin Calcium (Lipitor) 10 mg HS PO 07/02/24 22:00 07/02/24 20:56 Melatonin (Melatonin) 5 mg HS PO 07/02/24 22:00 07/02/24 20:56 Triamcinolone Acetonide (Kenalog 0.1 Cr) 1 applic DAILY TOP 07/03/24 10:00 07/03/24 09:50 Metoprolol Tartrate (Lopressor Tablet) 12.5 mg DAILY PO 07/04/24 10:00 Family History: Diabetes mellitus G8 MOTHER G8 FATHER G8 BROTHER G8 SISTER Review of Systems Constitutional: Denies fever no chills no feeling of malaise, and pains Cardiovascular: Denies chest pain, palpitation, orthopnea, PND, or pedal edema Respiratory: Denies shortness of breath, cough cough, sputum production, hemoptysis, : Overflow incontinence; Denies frequency hematuria Musculoskeletal: Right shoulder joint pain secondary to pinched nerve, left shoulder pain due to rheumatoid arthritis Psych: No evidence of depression, iman, suicidal ideation All other systems reviewed and negative unless otherwise noted in HPI. H&P Exam Vital Signs/I&O Vital Sign Date Time Temp Pulse Resp B/P (MAP) Pulse Ox O2 Delivery O2 Flow Rate FiO2 07/03/24 17:05 97.8 97 16 151/63 (92) 98 97.8 07/03/24 08:05 Room Air* 0 21 Intake and Output 07/02/24 07/03/24 19:00 07:00 Intake Total 1050 ml 750 ml Output Total 400 ml 1550 ml Balance 650 ml -800 ml Intake Oral 800 ml 700 ml IV Total 250 ml 50 ml Output Urine Total 400 ml 1550 ml Physical Exam Vitals and nursing notes reviewed. General Appearance: Alert, Oriented X3, Cooperative HEENT: Atraumatic, PERRLA, EOMI, Mucous membrane moist/pink Respiratory: Clear to auscultation, Normal air movement Cardiovascular: Regular rate, Normal S1, Normal S2, No murmurs, no chest wall tenderness Abdominal: No distention, no tenderness, bowel sounds present, no scars noted Extremities: Disproportionate upper extremities Neuro: Normal gait, Normal speech, Strength at 5/5 X4 ext, Normal tone, Sensation intact, Cranial nerves 3-12 NL, Reflexes 2+ Psych/Mental Status: Mental status NL, Mood NL Skin: No rashes, No breakdown, No significant lesion Labs/Diagnostic Data Labs/Diagnostic Data Laboratory Tests Test 07/03/24 10:21 07/02/24 05:04 07/01/24 22:25 07/01/24 18:10 Range/Units White Blood Count 4.2 L 4.8 # 4.4-10.8 10^3/uL Red Blood Count 3.14 L 3.21 L 4.0-5.20 10^6/uL Hemoglobin 11.1 L 11.4 L 12.2-16.2 g/dL Hematocrit 32.4 L 32.8 L 36.0-46.0 % Mean Corpuscular Volume 102.9 H 102.4 H 80.0-100.0 fL Mean Corpuscular Hemoglobin 35.1 H 35.5 H 28.0-32.0 pg Mean Corpuscular Hemoglobin Concent 34.1 34.7 32.0-36.0 g/dL Red Cell Distribution Width 14.0 13.8 11.8-14.3 % Platelet Count 127 L 133 L 140-450 10^3/uL Mean Platelet Volume 7.4 7.9 6.9-10.8 fL Neutrophils (%) (Auto) 60.4 70.5 37.0-80.0 % Lymphocytes (%) (Auto) 22.9 16.4 10.0-50.0 % Monocytes (%) (Auto) 11.3 9.1 0.0-12.0 % Eosinophils (%) (Auto) 5.1 3.6 0.0-7.0 % Basophils (%) (Auto) 0.3 0.4 0.0-2.0 % Neutrophils # (Auto) 2.5 3.4 1.6-8.6 10 ^3/uL Lymphocytes # (Auto) 1.0 0.8 0.4-5.4 10 ^3/uL Monocytes # (Auto) 0.5 0.4 0-1.3 10 ^3/uL Eosinophils # (Auto) 0.2 0.2 0-0.8 10 ^3/uL Basophils # (Auto) 0 0 0-0.2 10 ^3/uL Nucleated Red Blood Cells 0.1 0.1 % Sodium Level 132 L 128 L 136-145 mmol/L Potassium Level 3.9 4.1 3.5-5.1 mmol/L Chloride Level 98 95 L 98-107 mmol/L Carbon Dioxide Level 27 27 20-31 mmol/L Anion Gap 7 6 5-15 Blood Urea Nitrogen 6 L 6 L 9-23 mg/dL Creatinine 0.67 0.67 0.550-1.02 mg/dL Glomerular Filtration Rate Calc 96 96 >90 mL/min BUN/Creatinine Ratio 9.0 L 9.0 L 10.0-20.0 Serum Glucose 99 112 H 74-106 mg/dL Calcium Level 8.9 9.2 8.7-10.4 mg/dL Magnesium Level 1.7 1.6-2.6 mg/dL Total Bilirubin 0.6 1.0 0.2-1.0 mg/dL Aspartate Amino Transferase (AST) 46 H 61 H 13-40 U/L Alanine Aminotransferase (ALT) 28 32 7-40 U/L Alkaline Phosphatase 125 H 127 H 46-116 U/L Total Protein 6.7 6.8 5.7-8.2 g/dL Albumin 3.6 3.6 3.2-4.8 g/dL Erythrocyte Sedimentation Rate 15 0-20 mm/hr Prothrombin Time 11.4 9.3-11.8 sec Prothrombin Time INR 1.08 0.9-1.15 Activated Partial Thromboplast Time 27.4 24.5-34.5 SEC Uric Acid 3.7 3.1-7.8 mg/dL C-Reactive Protein High Sensitivity 0.34 <1.0 mg/dL Rheumatoid Factor 12.8 <14.0 IU/mL Hemoglobin A1c 4.6 <5.7 % A1C Triglycerides Level 58 < 150 mg/dL Cholesterol Level 134 < 200 mg/dL LDL Cholesterol 33 < 100 mg/dL HDL Cholesterol 86 H 40-59 mg/dL Vitamin B12 Level 912 H 211-911 pg/mL Vitamin D 25-Hydroxy 38.2 30.0-100 ng/mL Thyroid Stimulating Hormone (TSH) 1.19 0.55-4.78 uIU/mL Urine Color Light-yellow Yellow Urine Clarity Clear Clear Urine pH 7.5 5.0-9.0 Urine Specific [place] 1.009 1.001-1.035 Urine Protein Negative Negative Urine Ketones Negative Negative Urine Blood Trace H Negative /uL Urine Nitrite Negative Negative Urine Bilirubin Negative Negative Urine Urobilinogen Normal Negative mg/dL Urine Leukocyte Esterase 3+ Negative /uL Urine RBC 3 0 - 4 /hpf Urine Microscopic WBC 13 H 0-5 /HPF Urine Squamous Epithelial Cells Few <5 /hpf Urine Bacteria Few H None Seen /hpf Urine Yeast (Budding) Occasional None Seen /hpf Urine Glucose Normal Normal mg/dL Urine Opiates Screen Neg NEGATIVE Urine Fentanyl Screen Neg NEGATIVE Urine Barbiturates Screen Neg NEGATIVE Urine Phencyclidine Screen Neg NEGATIVE Urine Amphetamines Screen Neg NEGATIVE Urine Benzodiazepines Screen Neg NEGATIVE Urine Cocaine Screen Neg NEGATIVE Urine Cannabinoids Screen Neg NEGATIVE Test 07/01/24 17:18 07/01/24 12:40 Range/Units POC Glucose 110 H 70-106 mg/dl White Blood Count 3.6 L 4.4-10.8 10^3/uL Red Blood Count 3.35 L 4.0-5.20 10^6/uL Hemoglobin 12.0 L 12.2-16.2 g/dL Hematocrit 34.1 L 36.0-46.0 % Mean Corpuscular Volume 101.9 H 80.0-100.0 fL Mean Corpuscular Hemoglobin 35.7 H 28.0-32.0 pg Mean Corpuscular Hemoglobin Concent 35.1 32.0-36.0 g/dL Red Cell Distribution Width 14.0 11.8-14.3 % Platelet Count 118 L 140-450 10^3/uL Mean Platelet Volume 7.4 6.9-10.8 fL Neutrophils (%) (Auto) 60.7 37.0-80.0 % Lymphocytes (%) (Auto) 24.5 10.0-50.0 % Monocytes (%) (Auto) 9.4 0.0-12.0 % Eosinophils (%) (Auto) 4.5 0.0-7.0 % Basophils (%) (Auto) 0.9 0.0-2.0 % Neutrophils # (Auto) 2.2 1.6-8.6 10 ^3/uL Lymphocytes # (Auto) 0.9 0.4-5.4 10 ^3/uL Monocytes # (Auto) 0.3 0-1.3 10 ^3/uL Eosinophils # (Auto) 0.2 0-0.8 10 ^3/uL Basophils # (Auto) 0 0-0.2 10 ^3/uL Nucleated Red Blood Cells 0.1 % Sodium Level 131 L 136-145 mmol/L Potassium Level 4.2 3.5-5.1 mmol/L Chloride Level 97 L 98-107 mmol/L Carbon Dioxide Level 28 20-31 mmol/L Anion Gap 6 5-15 Blood Urea Nitrogen < 5 L 9-23 mg/dL Creatinine 0.72 0.550-1.02 mg/dL Glomerular Filtration Rate Calc 92 >90 mL/min BUN/Creatinine Ratio 6.9 L 10.0-20.0 Serum Glucose 109 H 74-106 mg/dL Calcium Level 9.3 8.7-10.4 mg/dL Troponin I High Sensitivity 9 </=34 ng/L Assessment Urinary tract infection General weakness Hyponatremia Pancytopenia Hypertension Hyperlipidemia Rheumatoid arthritis Obesity Overflow incontinence Chronic pain Plan/Recommendation Agreement with your ongoing assessment and plan of care. Monitor daily labs. Electrolyte replacement prn. NS bolus given. IV antibiotics with Ceftriaxone. Atorvastatin 10 mg daily. Pain management prn. DVT prophylaxis with Lovenox. Additional plan as per the hospital course. Plan discussed with: Patient, Other (RN) RO MCGEE DO Jul 03, 2024 18:38
--- NOTE | 2024-07-03 18:38 | DVHPN2 ---
Progress Note - Dictate Date Seen: Jul 03, 2024 Has the PT tested + for MRSA If YES, has PT been informed?: No Medical Necessity Reason Pt with a Central, PICC or Fol: No Subjective Patient is seen and evaluated in follow up. No acute events overnight. Patient noted with 4 beats of Vtac this morning. Metoprolol 12.5 mg given. Cardiology eval pending. No complaints at this time. Na improved to 132. vital signs Vital Sign Date Time Temp Pulse Resp B/P (MAP) Pulse Ox O2 Delivery O2 Flow Rate FiO2 07/03/24 17:05 97.8 97 16 151/63 (92) 98 97.8 07/03/24 08:05 Room Air* 0 21 Total Intake and Output 07/02/24 07/02/24 07/03/24 15:00 23:00 07:00 Intake Total 1100 ml 700 ml Output Total 400 ml 1550 ml Balance 700 ml -850 ml medications Current Medications Medications Dose Ordered Sig/Ashish Route Start Time Stop Time Status Last Admin Dose Admin Acetaminophen 650 mg Q6HP PRN PO 07/01/24 22:00 07/02/24 20:58 Ondansetron HCl 4 mg Q4HP PRN IV 07/01/24 22:00 07/02/24 21:13 Enoxaparin Sodium 40 mg DAILY SC 07/02/24 10:00 07/03/24 09:50 Ceftriaxone Sodium 50 ml @ 100 mls/hr DAILY@2100 IV 07/02/24 21:00 07/02/24 21:10 Ascorbic Acid 500 mg DAILY PO 07/02/24 10:00 07/03/24 09:50 Calcium Acetate 667 mg DAILY PO 07/02/24 10:00 07/03/24 09:50 Pantoprazole Sodium 40 mg DAILY PO 07/02/24 10:00 07/03/24 09:50 Baclofen 10 mg BID PO 07/02/24 10:00 07/03/24 09:50 Gabapentin 600 mg BID PO 07/02/24 10:00 07/03/24 09:50 Atorvastatin Calcium 10 mg HS PO 07/02/24 22:00 07/02/24 20:56 Venlafaxine HCl 75 mg BID PO 07/02/24 10:00 07/03/24 09:50 Amlodipine Besylate 5 mg DAILY PO 07/02/24 10:00 07/03/24 09:51 Hydralazine HCl 10 mg Q6HP PRN IV 07/02/24 01:30 07/02/24 02:15 Acetaminophen/ Hydrocodone Bitart 1 tab Q6HP PRN PO 07/02/24 04:45 07/02/24 18:10 Losartan Potassium 50 mg BID PO 07/02/24 10:00 07/03/24 09:51 Melatonin 5 mg HS PO 07/02/24 22:00 07/02/24 20:56 Triamcinolone Acetonide 1 applic DAILY TOP 07/03/24 10:00 07/03/24 09:50 Metoprolol Tartrate 12.5 mg DAILY PO 07/04/24 10:00 objective Vitals and nursing notes reviewed. General Appearance: Alert, Oriented X3, Cooperative HEENT: Atraumatic, PERRLA, EOMI, Mucous membrane moist/pink Respiratory: Clear to auscultation, Normal air movement Cardiovascular: Regular rate, Normal S1, Normal S2, No murmurs, no chest wall tenderness Abdominal: No distention, no tenderness, bowel sounds present, no scars noted Extremities: Disproportionate upper extremities Neuro: Normal gait, Normal speech, Strength at 5/5 X4 ext, Normal tone, Sensation intact, Cranial nerves 3-12 NL, Reflexes 2+ Psych/Mental Status: Mental status NL, Mood NL Skin: No rashes, No breakdown, No significant lesion laboratory and microbiology Laboratory Tests 07/03/24 10:21 Test 07/03/24 10:21 Range/Units Serum Glucose 99 74-106 mg/dL Problem List Urinary tract infection General weakness Hyponatremia Pancytopenia Hypertension Hyperlipidemia Rheumatoid arthritis Obesity Overflow incontinence Chronic pain Assessment/Plan Agree with current supportive medical care. Cardiology consult as recommended. Monitor daily labs. Electrolyte replacement prn. IV antibiotics with Ceftriaxone. Atorvastatin 10 mg daily. Started on Metoprolol Tartrate 12.5 mg PO daily. Continue home medications as ordered. Pain management prn. GI/DVT prophylaxis. Additional plan as per the hospital course. Plan discussed with: Patient, Other (RN) RO MCGEE DO Jul 03, 2024 18:38
[2024-07-04] VITALS (8 sets, daily range): BP systolic 112–161; BP diastolic 52–65; PULSE 75–90; RESP 15–20; TEMP 97.6–98.8; O2SAT 92–97
[2024-07-04 06:03] LABS: Basophils # (auto) 0 10 ^3/uL (0-0.2); Basophils % (auto) 0.6 % (0.0-2.0); Eosinophils # (auto) 0.2 10 ^3/uL (0-0.8); Eosinophils % (auto) 6.1 % (0.0-7.0); Hemoglobin 9.6 g/dL (12.2-16.2); Lymphocytes # (auto) 1.1 10 ^3/uL (0.4-5.4); Lymphocytes % (auto) 31.2 % (10.0-50.0); Mean Corpuscular Hemoglobin 35.4 pg (28.0-32.0); Mean Corpuscular Hgb Conc. 34.4 g/dL (32.0-36.0); Monocytes # (auto) 0.5 10 ^3/uL (0-1.3); Monocytes % (auto) 13.2 % (0.0-12.0); Neutrophils # (auto) 1.8 10 ^3/uL (1.6-8.6); Neutrophils % (auto) 48.9 % (37.0-80.0); Nucleated Red Blood Cells % 0.1 %; Platelet Count (auto) 99 10^3/uL (140-450); Red Blood Cells 2.72 10^6/uL (4.0-5.20); Red Cell Distribution Width 13.9 % (11.8-14.3); White Blood Cell 3.7 10^3/uL (4.4-10.8)
[2024-07-04 06:27] LABS: Alanine Aminotransferase 24 U/L (7-40); Albumin 3.3 g/dL (3.2-4.8); Alkaline Phosphatase 110 U/L (46-116); Anion Gap 10 (5-15); Aspartate Aminotransferase 38 U/L (13-40); Bilirubin, Total 0.6 mg/dL (0.2-1.0); Carbon Dioxide 25 mmol/L (20-31); Glucose 94 mg/dL (74-106); Total Protein 6.2 g/dL (5.7-8.2)
[2024-07-04 06:30] LABS: BUN/Creatinine Ratio 7.8 (10.0-20.0); Blood Urea Nitrogen < 5 mg/dL (9-23); Calcium 8.6 mg/dL (8.7-10.4); Chloride 94 mmol/L (98-107); Potassium 3.5 mmol/L (3.5-5.1); Sodium 129 mmol/L (136-145)
[2024-07-04 10:14] LABS: % Iron Saturation 33.2 % (15-50)
--- NOTE | 2024-07-04 11:07 | DVH ---
Bilateral lower extremity venous duplex Clinical History: r/o dvt, edema Comparison: None Technique: Duplex Doppler evaluation of the deep venous systems of both lower extremities from the common femora l veins to the popliteal veins including color Doppler and spectral/pulsed waveform analysis was perf ormed. Findings: RIGHT SIDE: The common femoral vein demonstrates appropriate compressibility and waveform variability. There is compressibility/patency of the great saphenous vein at the proximal thigh. The femoral vein demonstrates appropriate compressibility and waveform variability. The deep femoral vein demonstrates appropriate compressibility and waveform variability. The popliteal vein demonstrates appropriate compressibility and waveform variability. There is normal compressibility at the tibioperoneal trunk. LEFT SIDE: The common femoral vein demonstrates appropriate compressibility and waveform variability. There is compressibility/patency of the great saphenous vein at the proximal thigh. The femoral vein demonstrates appropriate compressibility and waveform variability. The deep femoral vein demonstrates appropriate compressibility and waveform variability. The popliteal vein demonstrates appropriate compressibility and waveform variability. There is normal compressibility at the tibioperoneal trunk. Impression: No right or left femoropopliteal venous thrombosis.
--- NOTE | 2024-07-04 13:20 | DVHINCON2 ---
Date Seen: Jul 04, 2024 Referring Physician MD [place] resident Reason for Consultation Episode of Vtach, echo shows mild hypokinesis History of Present Illness This is a 64-year-old female patient who presents to emergency room with chief complaint of generalized weakness. She comes to the emergency room for further evaluation. Cardiology has now been consulted for echo findings of mild anteroapical hypokinesis and an episode of nonsustained V-tach. Initial twelve lead electrocardiogram reveals normal sinus rhythm with left bundle branch block. The patient denies any cardiac symptoms. Initial troponin level was negative. Significant past medical history includes hypertension, dyslipidemia, osteoporosis, rheumatoid arthritis, fibromyalgia, and morbid obesity. Past Medical History Past medical history reviewed. No other significant than mentioned above. Past Surgical History Right wrist surgery Left wrist surgery x2 Bilateral tubal ligation Family History: Diabetes mellitus G8 MOTHER G8 FATHER G8 BROTHER G8 SISTER Family History Family history reviewed. Social History Patient has a 30 pack-year history quit smoking approximately 26 years ago Denies drug use Denies any alcohol use Allergies: Coded Allergies: Latex (Verified Allergy, Unknown, 04/16/22) Morphine (Verified Allergy, Unknown, 07/02/24) Home Meds Active Scripts Hydrocodone-Acetaminophen (Hydrocodone Bitartrate/AC 5-325 mg) 1 Tab Tab, 1 TAB PO Q6HP PRN, #14 TAB Prov:VINICIO MOORE MD 04/17/22 Reported Medications Venlafaxine Hydrochloride (Venlafaxine Hcl) 75 Mg Tab, 75 MG PO BID, TAB 05/31/22 Calcium Acetate (PHOSLO CAPSULE) 667 Mg Cp, 667 MG PO, CAP 05/31/22 Ascorbic Acid (VITAMIN C TABLET) 500 Mg Tb, 500 MG PO DAILY, TAB 05/31/22 Cholecalciferol (D3) Unknown Strength Tab, PO, TAB 05/31/22 Benazepril Hcl (Benazepril Hcl) 20 Mg Tab, 20 MG PO DAILY, TAB 05/31/22 Pantoprazole Sodium Sesquihydr (Protonix) 40 Mg Tab, 40 MG PO DAILY, #30 TAB 05/31/22 Simvastatin (Simvastatin) 20 Mg Tab, 20 MG PO QPM, TAB 05/31/22 Baclofen (Baclofen) 20 Mg Tab, 10 MG PO BID, TAB 2/17/23 Gabapentin (Gabapentin) 600 Mg Tab, 600 MG PO BID, TAB 05/31/22 Home Meds Home medications reviewed. Current Medications Current Medications Medications (Trade) Dose Ordered Sig/Ashish Route PRN Reason Start Time Stop Time Status Last Admin Metoprolol Tartrate (Lopressor Tablet) 12.5 mg DAILY PO 07/04/24 10:00 Review of Systems Constitutional: Generalized weakness Ears, Nose, & Throat: No symptom reported Eyes: No symptom reported Neurological: No symptoms reported Pulmonary/Respiratory: No symptoms reported Cardiovascular: No symptom reported Gastrointestinal: No symptom reported Genitourinary: No symptom reported Musculoskeletal: No symptom reported Skin: No symptom reported Psychiatric: No symptom reported Endocrine: No symptom reported Hematologic/Lymphatic: No symptom reported Vital Signs Vital Signs Date Time Temp Pulse Resp B/P (MAP) Pulse Ox O2 Delivery O2 Flow Rate FiO2 07/04/24 10:11 112/57 07/04/24 09:00 97.7 84 16 92 97.7 07/04/24 08:05 Room Air* 0 21 Physical Exam General Appearance: Cooperative. Morbid obesity Pulmonary/Respiratory: Clear, bilateral breaths sounds. Cardiovascular/Chest: Regular rate and rhythm. Peripheral Pulses: 2+ Radial (R). 2+ Radial (L). 2+ Pedal (R). 2+ Pedal (L) Abdominal Exam: Normal bowel sounds. Ankle Exam: Negative ankle edema Lower extremities: Negative lower extremity edema Neuro/Mental Status: A/OX4, coherent. Thoughts/Psych: Normal thought pattern. Appropriate mood and affect. Good judgment and insight. Appearance: No acute distress. Skin Exam: Normal inspection. Normal color. Warm and dry. Labs/Diagnostic Data Labs Test 07/04/24 05:25 07/03/24 10:21 07/02/24 05:04 07/01/24 22:25 Range/Units White Blood Count 3.7 L 4.4-10.8 10^3/uL Red Blood Count 2.72 L 4.0-5.20 10^6/uL Hemoglobin 9.6 L 12.2-16.2 g/dL Hematocrit 28.0 #L 36.0-46.0 % Mean Corpuscular Volume 103.0 H 80.0-100.0 fL Mean Corpuscular Hemoglobin 35.4 H 28.0-32.0 pg Mean Corpuscular Hemoglobin Concent 34.4 32.0-36.0 g/dL Red Cell Distribution Width 13.9 11.8-14.3 % Platelet Count 99 L 140-450 10^3/uL Mean Platelet Volume 7.4 6.9-10.8 fL Neutrophils (%) (Auto) 48.9 37.0-80.0 % Lymphocytes (%) (Auto) 31.2 10.0-50.0 % Monocytes (%) (Auto) 13.2 H 0.0-12.0 % Eosinophils (%) (Auto) 6.1 0.0-7.0 % Basophils (%) (Auto) 0.6 0.0-2.0 % Neutrophils # (Auto) 1.8 1.6-8.6 10 ^3/uL Lymphocytes # (Auto) 1.1 0.4-5.4 10 ^3/uL Monocytes # (Auto) 0.5 0-1.3 10 ^3/uL Eosinophils # (Auto) 0.2 0-0.8 10 ^3/uL Basophils # (Auto) 0 0-0.2 10 ^3/uL Nucleated Red Blood Cells 0.1 % Sodium Level 129 L 136-145 mmol/L Potassium Level 3.5 3.5-5.1 mmol/L Chloride Level 94 L 98-107 mmol/L Carbon Dioxide Level 25 20-31 mmol/L Anion Gap 10 5-15 Blood Urea Nitrogen < 5 L 9-23 mg/dL Creatinine 0.64 0.550-1.02 mg/dL Glomerular Filtration Rate Calc 97 >90 mL/min BUN/Creatinine Ratio 7.8 L 10.0-20.0 Serum Glucose 94 74-106 mg/dL Calcium Level 8.6 L 8.7-10.4 mg/dL Iron Level 64 50-170 ug/dL Total Iron Binding Capacity 193 L 250-425 ug/dL Percent Iron Saturation 33.2 15-50 % Total Bilirubin 0.6 0.2-1.0 mg/dL Aspartate Amino Transferase (AST) 38 13-40 U/L Alanine Aminotransferase (ALT) 24 7-40 U/L Alkaline Phosphatase 110 46-116 U/L Total Protein 6.2 5.7-8.2 g/dL Albumin 3.3 3.2-4.8 g/dL Magnesium Level 1.7 1.6-2.6 mg/dL Erythrocyte Sedimentation Rate 15 0-20 mm/hr Prothrombin Time 11.4 9.3-11.8 sec Prothrombin Time INR 1.08 0.9-1.15 Activated Partial Thromboplast Time 27.4 24.5-34.5 SEC Uric Acid 3.7 3.1-7.8 mg/dL C-Reactive Protein High Sensitivity 0.34 <1.0 mg/dL Rheumatoid Factor 12.8 <14.0 IU/mL Hemoglobin A1c 4.6 <5.7 % A1C Triglycerides Level 58 < 150 mg/dL Cholesterol Level 134 < 200 mg/dL LDL Cholesterol 33 < 100 mg/dL HDL Cholesterol 86 H 40-59 mg/dL Vitamin B12 Level 912 H 211-911 pg/mL Vitamin D 25-Hydroxy 38.2 30.0-100 ng/mL Thyroid Stimulating Hormone (TSH) 1.19 0.55-4.78 uIU/mL Test 07/01/24 18:10 07/01/24 17:18 07/01/24 12:40 Range/Units Urine Color Light-yellow Yellow Urine Clarity Clear Clear Urine pH 7.5 5.0-9.0 Urine Specific [place] 1.009 1.001-1.035 Urine Protein Negative Negative Urine Ketones Negative Negative Urine Blood Trace H Negative /uL Urine Nitrite Negative Negative Urine Bilirubin Negative Negative Urine Urobilinogen Normal Negative mg/dL Urine Leukocyte Esterase 3+ Negative /uL Urine RBC 3 0 - 4 /hpf Urine Microscopic WBC 13 H 0-5 /HPF Urine Squamous Epithelial Cells Few <5 /hpf Urine Bacteria Few H None Seen /hpf Urine Yeast (Budding) Occasional None Seen /hpf Urine Glucose Normal Normal mg/dL Urine Opiates Screen Neg NEGATIVE Urine Fentanyl Screen Neg NEGATIVE Urine Barbiturates Screen Neg NEGATIVE Urine Phencyclidine Screen Neg NEGATIVE Urine Amphetamines Screen Neg NEGATIVE Urine Benzodiazepines Screen Neg NEGATIVE Urine Cocaine Screen Neg NEGATIVE Urine Cannabinoids Screen Neg NEGATIVE POC Glucose 110 H 70-106 mg/dl Troponin I High Sensitivity 9 </=34 ng/L Microbiology Date/Time Source Procedure Growth Status 07/01/24 22:25 Blood Blood Culture - Preliminary NO GROWTH AFTER 48 HOURS OF INCUBATION. Resulted 07/01/24 18:10 Voided Urine Urine Culture - Final Escherichia coli Complete Assessment Transient nonsustained ventricular tachycardia Rule out coronary ischemia Hypertensive urgency, resolved Dyslipidemia Pancytopenia Urinary tract infection Mass in lower pole of right kidney (4.2cm) History of rheumatoid arthritis Morbid obesity Plan/Recommendation We will continue with the following plan/recommendations (Dr. Veliz): Case discussed with . Transthoracic echocardiogram reveals EF of 50% with mild anteroapical hypokinesis. This may likely be due to left bundle branch block. Patient also noted to have a nonsustained four beat run of V-tach on lunchroom monitor. We will proceed with obtaining a nuclear stress test. In the meantime, continue with low-dose beta-martin. Continue with blood pressure control and lipid-lowering agent. Patient was currently pending a renal biopsy to rule out carcinoma. Thank you for allowing us to care for this patient. Please call with any questions or concerns. Critical care time spent: 44 minutes This medical document was created using an electronic medical record system with voice recognition software and computerized dictation system. Although this document has been carefully reviewed, there might still be some phonetic and typographical errors. Occasional wrong-word or ``sound-alike substitutions may have occurred due to the inherent limitations of voice recognition software. These areas are purely typographical due to imperfections of the software progr ams and do not reflect any compromise in the patient's medical care. Please read the chart carefully and recognize, using context, where these substitutions have occurred. Plan discussed with: Patient NYHA Physical activity limitations: NA Date of Service: Jul 04, 2024 Billing Provider: JOSE ROBERTO DIAZ Cardiology Common Codes: [id number] INP/OBS CARE (High) Cardiology Consultation Codes: [id number] CONSULT <45MIN JOSE ROBERTO DIAZ Jul 04, 2024 13:20
--- NOTE | 2024-07-04 15:04 | DVHPNRES ---
Progress Note Date Seen: Jul 04, 2024 Resident Creating Document: MERLE LEWIS RESIDENT Has the PT tested + for MRSA If YES, has PT been informed?: No Medical Necessity Reason Pt with a Central, PICC or Fol: No Subjective Review of Systems 07/04-Patient seen and examined at the bedside. Reports 2 raised the spots in the left lower extremity. Waiting for kidney biopsy. Ultrasound lower extremity ordered. Hemoglobin trended down to 9.6 MCV 103, hematocrit 28. Stool occult ordered. Physical therapy ordered. Iron panel suggestive of anemia of chronic disease. Objective vital signs Vital Sign Date Time Temp Pulse Resp B/P (MAP) Pulse Ox O2 Delivery O2 Flow Rate FiO2 07/04/24 13:00 98.8 88 16 135/61 (85) 97 98.8 07/04/24 08:05 Room Air* 0 21 Total Intake and Output 07/03/24 07/03/24 07/04/24 15:00 23:00 07:00 Intake Total 1550 ml 600 ml Output Total 1100 ml 1750 ml Balance 450 ml -1150 ml medications Current Medications Medications Dose Ordered Sig/Ashish Route Start Time Stop Time Status Last Admin Dose Admin Acetaminophen 650 mg Q6HP PRN PO 07/01/24 22:00 07/03/24 19:47 650 MG Ondansetron HCl 4 mg Q4HP PRN IV 07/01/24 22:00 07/03/24 21:45 4 MG Enoxaparin Sodium 40 mg DAILY SC 07/02/24 10:00 07/03/24 09:50 40 MG Ceftriaxone Sodium 50 ml @ 100 mls/hr DAILY@2100 IV 07/02/24 21:00 07/03/24 21:01 100 MLS/HR Ascorbic Acid 500 mg DAILY PO 07/02/24 10:00 07/04/24 10:11 500 MG Calcium Acetate 667 mg DAILY PO 07/02/24 10:00 07/04/24 10:11 667 MG Pantoprazole Sodium 40 mg DAILY PO 07/02/24 10:00 07/04/24 10:11 40 MG Baclofen 10 mg BID PO 07/02/24 10:00 07/04/24 10:08 10 MG Gabapentin 600 mg BID PO 07/02/24 10:00 07/04/24 10:11 600 MG Atorvastatin Calcium 10 mg HS PO 07/02/24 22:00 07/03/24 22:03 10 MG Venlafaxine HCl 75 mg BID PO 07/02/24 10:00 07/04/24 10:12 75 MG Amlodipine Besylate 5 mg DAILY PO 07/02/24 10:00 07/04/24 10:10 5 MG Hydralazine HCl 10 mg Q6HP PRN IV 07/02/24 01:30 07/02/24 02:15 10 MG Acetaminophen/ Hydrocodone Bitart 1 tab Q6HP PRN PO 07/02/24 04:45 07/03/24 21:00 1 TAB Losartan Potassium 50 mg BID PO 07/02/24 10:00 07/04/24 10:11 50 MG Melatonin 5 mg HS PO 07/02/24 22:00 07/03/24 22:03 5 MG Triamcinolone Acetonide 1 applic DAILY TOP 07/03/24 10:00 07/03/24 09:50 1 APPLIC Metoprolol Tartrate 12.5 mg DAILY PO 07/04/24 10:00 Examination General Appearance: Alert, Oriented X3, Cooperative HEENT: Atraumatic, PERRLA, EOMI, Mucous membrane moist/pink Respiratory: Clear to auscultation, Normal air movement Cardiovascular: Regular rate, Normal S1, Normal S2, No murmurs, no chest wall tenderness Abdominal: NO distention, no tenderness, bowel sounds present, no scars noted Extremities: Disproportionate upper extremities Skin: No rashes, No breakdown, No significant lesion Neuro: Normal gait, Normal speech, Strength at 5/5 X4 ext, Normal tone, Sensation intact, Cranial nerves 3-12 NL, Reflexes 2+ Psych/Mental Status: Mental status NL, Mood NL laboratory and microbiology Laboratory Tests 07/04/24 05:25 Test 07/04/24 05:25 Range/Units Serum Glucose 94 74-106 mg/dL Microbiology Date/Time Source Procedure Growth Status 07/01/24 22:25 Blood Blood Culture - Preliminary NO GROWTH AFTER 48 HOURS OF INCUBATION. Resulted 07/01/24 18:10 Voided Urine Urine Culture - Final Escherichia coli Complete Labs and/or images reviewed: Labs reviewed by me, Image(s) reviewed by me Problem List/Assessment/Plan Problem List/Assessment/Plan 07/04-Patient seen and examined at the bedside. Reports 2 raised the spots in the left lower extremity. Waiting for kidney biopsy. Ultrasound lower extremity ordered. Hemoglobin trended down to 9.6 MCV 103, hematocrit 28. Stool occult ordered. Physical therapy ordered. Iron panel suggestive of anemia of chronic disease. #Urinary tract infection #General weakness, acute stroke ruled out # anemia, macrocytic secondary to kidney pathology #Pancytopenia, resolved #Hypertension #Hyperlipidemia #Rheumatoid arthritis? #Fibromyalgia? #Obesity #Overflow incontinence #Chronic pain #Heterogeneous fat containing mass in the lower pole of the right kidney measures 4.2 cm. #renal angiomyolipoma? #fat containing renal cell carcinoma? #NSVT DVT prophylaxis: Lovenox Diet: regular Plan Initiated IV antibiotics ( Ceftriaxone) Obtained CT of the head which which negative for acute stroke No focal deficit Repeat CBC given the pancytopenia: mild anemia and thrombocytopenia Continue home medications for hypertension and hyperlipidemia Adequate pain control ( [place] 10-325 home medication) Radiology consult for biopsy of renal mass ECHO: Technically difficult study. Difficult acoustic windows. Left atrial enlargement. Mild RV enlargement. Concentric LVH. Moderate mitral annular calcification. Calcification at the base of the posterior mitral leaflet. Left ventricular function is preserved at 50% with normal RV function. Mild anteroapical hypokinesis. cardiology consult Continue BB Goal of care discussed for more than 25 minutes: Full code Case and plan discussed with Dr. Keen Plan discussed with: Patient, Spouse (The bedside) My Orders My Orders Orders - MERLE LEWIS Procedure Category Date Status Time Stool Occult Blood LAB 07/04/24 Logged 08:26 Bilat Lower Dvt US 07/04/24 Resulted 10:24 Pt Request For Service PT 07/04/24 Logged 10:24 Stool Occult Blood LAB 07/04/24 Logged 10:24 Dietary Evaluation Review Recommendations by RD: Dietary education by RD Comments: 1) Add cardiac restriction to diet 2) Initiate Glucerna qd d/t decreased appetite. Encourage optimal hydration 3) Refer to outpatient RD for weight management 4) F/u with cardiology 5) Continue to monitor, labs, and skin integrity Expected Outcomes/Goals: 1) appetite and labs to improve 2) f/u in 2-3 days Date of Service: Jul 04, 2024 Billing Provider: JUAN KEEN DO Common Visit Codes: [id number] INP/OBS CARE(HIGH) MERLE LEWIS Jul 04, 2024 15:04 JUAN KEEN DO Jul 04, 2024 20:16
[2024-07-04] MEDS: METOPROLOL TARTRATE 25 MG TAB PO SCH (15:34)
--- NOTE | 2024-07-04 20:01 | DVHPN2 ---
Progress Note - Dictate Date Seen: Jul 04, 2024 Has the PT tested + for MRSA If YES, has PT been informed?: No Medical Necessity Reason Pt with a Central, PICC or Fol: No Subjective Patient is seen and evaluated in follow up. No acute events overnight. No new complaints. Na decreased to 129. Bilateral lower extremity venous duplex is negative for DVT. Awaiting PT eval. vital signs Vital Sign Date Time Temp Pulse Resp B/P (MAP) Pulse Ox O2 Delivery O2 Flow Rate FiO2 07/04/24 17:00 98.2 75 15 149/56 (87) 96 98.2 07/04/24 08:05 Room Air* 0 21 Total Intake and Output 07/03/24 07/03/24 07/04/24 15:00 23:00 07:00 Intake Total 1550 ml 600 ml Output Total 1100 ml 1750 ml Balance 450 ml -1150 ml medications Current Medications Medications Dose Ordered Sig/Ashish Route Start Time Stop Time Status Last Admin Dose Admin Acetaminophen 650 mg Q6HP PRN PO 07/01/24 22:00 07/03/24 19:47 650 MG Ondansetron HCl 4 mg Q4HP PRN IV 07/01/24 22:00 07/03/24 21:45 4 MG Enoxaparin Sodium 40 mg DAILY SC 07/02/24 10:00 Hold 07/03/24 09:50 40 MG Ceftriaxone Sodium 50 ml @ 100 mls/hr DAILY@2100 IV 07/02/24 21:00 07/03/24 21:01 100 MLS/HR Ascorbic Acid 500 mg DAILY PO 07/02/24 10:00 07/04/24 10:11 500 MG Calcium Acetate 667 mg DAILY PO 07/02/24 10:00 07/04/24 10:11 667 MG Pantoprazole Sodium 40 mg DAILY PO 07/02/24 10:00 07/04/24 10:11 40 MG Baclofen 10 mg BID PO 07/02/24 10:00 07/04/24 10:08 10 MG Gabapentin 600 mg BID PO 07/02/24 10:00 07/04/24 10:11 600 MG Atorvastatin Calcium 10 mg HS PO 07/02/24 22:00 07/03/24 22:03 10 MG Venlafaxine HCl 75 mg BID PO 07/02/24 10:00 07/04/24 10:12 75 MG Amlodipine Besylate 5 mg DAILY PO 07/02/24 10:00 07/04/24 10:10 5 MG Hydralazine HCl 10 mg Q6HP PRN IV 07/02/24 01:30 07/02/24 02:15 10 MG Acetaminophen/ Hydrocodone Bitart 1 tab Q6HP PRN PO 07/02/24 04:45 07/03/24 21:00 1 TAB Losartan Potassium 50 mg BID PO 07/02/24 10:00 07/04/24 10:11 50 MG Melatonin 5 mg HS PO 07/02/24 22:00 07/03/24 22:03 5 MG Triamcinolone Acetonide 1 applic DAILY TOP 07/03/24 10:00 07/04/24 15:34 1 APPLIC Metoprolol Tartrate 12.5 mg DAILY PO 07/04/24 10:00 07/04/24 15:34 12.5 MG objective Vitals and nursing notes reviewed. General Appearance: Alert, Oriented X3, Cooperative HEENT: Atraumatic, PERRLA, EOMI, Mucous membrane moist/pink Respiratory: Clear to auscultation, Normal air movement Cardiovascular: Regular rate, Normal S1, Normal S2, No murmurs, no chest wall tenderness Abdominal: No distention, no tenderness, bowel sounds present, no scars noted Extremities: Disproportionate upper extremities Neuro: Normal gait, Normal speech, Strength at 5/5 X4 ext, Normal tone, Sensation intact, Cranial nerves 3-12 NL, Reflexes 2+ Psych/Mental Status: Mental status NL, Mood NL Skin: No rashes, No breakdown, No significant lesion laboratory and microbiology Laboratory Tests 07/04/24 05:25 Test 07/04/24 05:25 Range/Units Serum Glucose 94 74-106 mg/dL Problem List Urinary tract infection General weakness Hyponatremia Pancytopenia Hypertension Hyperlipidemia Rheumatoid arthritis Obesity Overflow incontinence Chronic pain Assessment/Plan Agree with current supportive medical care. Cardiology following. Stress test pending. Biopsy of renal mass ordered. PT as recommended. Monitor daily labs. Electrolyte replacement prn. IV antibiotics with Ceftriaxone. Continue home medications as ordered. Pain management prn. GI/DVT prophylaxis. Additional plan as per the hospital course. Dietary Evaluation Review Recommendations by RD: Dietary education by RD Comments: 1) Add cardiac restriction to diet 2) Initiate Glucerna qd d/t decreased appetite. Encourage optimal hydration 3) Refer to outpatient RD for weight management 4) F/u with cardiology 5) Continue to monitor, labs, and skin integrity Expected Outcomes/Goals: 1) appetite and labs to improve 2) f/u in 2-3 days Plan discussed with: Patient, Other (RN) RO MCGEE DO Jul 04, 2024 20:01
[2024-07-05] VITALS (8 sets, daily range): BP systolic 139–164; BP diastolic 50–89; PULSE 74–92; RESP 15–20; TEMP 96.6–98.9; O2SAT 90–99
[2024-07-05 07:56] LABS: Basophils # (auto) 0 10 ^3/uL (0-0.2); Eosinophils # (auto) 0.1 10 ^3/uL (0-0.8); Hemoglobin 10.7 g/dL (12.2-16.2); Lymphocytes # (auto) 0.8 10 ^3/uL (0.4-5.4); Monocytes # (auto) 0.4 10 ^3/uL (0-1.3); Neutrophils # (auto) 1.6 10 ^3/uL (1.6-8.6); Neutrophils % (auto) 53.9 % (37.0-80.0); White Blood Cell 2.9 10^3/uL (4.4-10.8)
[2024-07-05 08:07] LABS: Basophils % (auto) 0.7 % (0.0-2.0); Eosinophils % (auto) 4.9 % (0.0-7.0); Hematocrit 31.4 % (36.0-46.0); Lymphocytes % (auto) 28.1 % (10.0-50.0); Mean Corpuscular Hemoglobin 35.2 pg (28.0-32.0); Mean Corpuscular Hgb Conc. 34.1 g/dL (32.0-36.0); Mean Corpuscular Volume 103.2 fL (80.0-100.0); Monocytes % (auto) 12.4 % (0.0-12.0); Nucleated Red Blood Cells % 0.4 %; Platelet Count (auto) 106 10^3/uL (140-450); Red Blood Cells 3.04 10^6/uL (4.0-5.20)
[2024-07-05 08:23] LABS: Alanine Aminotransferase 25 U/L (7-40); Alkaline Phosphatase 112 U/L (46-116); Anion Gap 8 (5-15); Carbon Dioxide 28 mmol/L (20-31); Glucose 94 mg/dL (74-106); Magnesium 1.7 mg/dL (1.6-2.6); Potassium 3.6 mmol/L (3.5-5.1); Total Protein 6.5 g/dL (5.7-8.2)
[2024-07-05 08:24] LABS: Albumin 3.5 g/dL (3.2-4.8)
[2024-07-05 08:25] LABS: Bilirubin, Total 0.5 mg/dL (0.2-1.0)
[2024-07-05 08:27] LABS: Aspartate Aminotransferase 43 U/L (13-40); BUN/Creatinine Ratio 7.6 (10.0-20.0); Blood Urea Nitrogen < 5 mg/dL (9-23); Chloride 97 mmol/L (98-107); Sodium 133 mmol/L (136-145)
[2024-07-05] MEDS: REGADENOSON 0.4 MG/5 ML SYRG IV ONE ×2 (10:05→10:06)
--- NOTE | 2024-07-05 12:03 | DVHPNRES ---
Progress Note Date Seen: Jul 05, 2024 Resident Creating Document: TAWANA CALLEJAS RESIDENT Has the PT tested + for MRSA If YES, has PT been informed?: No Medical Necessity Reason Pt with a Central, PICC or Fol: No Subjective Review of Systems Patient is a 64-year-old female visiting to the ED with 1 day history of generalized weakness. According to the patient she woke up at night around 1:00 a.m. went to use the bathroom and she felt really weak unable to walk back to the bed. Patient said she felt really weak and thought completely unwell also with an associated headache she measured her blood pressure and it was extremely elevated at 191/97. Thus, prompting the visit to the today. She denies any nausea vomiting chest pain or shortness of breadth. Initial labs revealed pancytopenia, UTI and a 12 lead EKG revealed left bundle branch block. Chest x- ray was grossly unremarkable and CT of the head revealed did not show any acute intracranial abnormality, there is mild chronic microvascular ischemic changes. Past medical history: Hypertension, hyperlipidemia, pinched nerve, rheumatoid arthritis, fibromyalgia Past surgical history: Multiple surgeries on her wrist bilaterally Medication includes losartan, Lehr, gabapentin, amlodipine, pantoprazole, baclofen, simvastatin, amitriptyline venlafaxine and multivitamins CT scan abdomen: Heterogeneous fat containing mass in the lower pole of the right kidney measures 4.2 cm. Differential considerations could include renal angiomyolipoma or fat containing renal cell carcinoma. Cardiology has now been consulted for echo findings of mild anteroapical hypokinesis and an episode of nonsustained V-tach. IR concept: patient will benefit on embolization of renal mass more than biopsy, pending stress test and clearance by cardio for the procedure Objective vital signs Vital Sign Date Time Temp Pulse Resp B/P (MAP) Pulse Ox O2 Delivery O2 Flow Rate FiO2 07/05/24 09:15 98.0 75 15 148/56 (86) 93 98.0 07/04/24 20:00 Room Air* 0 21 Total Intake and Output 07/04/24 07/04/24 07/05/24 15:00 23:00 07:00 Intake Total 750 ml 240 ml Output Total 1700 ml 2400 ml Balance -950 ml -2160 ml medications Current Medications Medications Dose Ordered Sig/Ashish Route Start Time Stop Time Status Last Admin Dose Admin Acetaminophen 650 mg Q6HP PRN PO 07/01/24 22:00 07/03/24 19:47 650 MG Ondansetron HCl 4 mg Q4HP PRN IV 07/01/24 22:00 07/04/24 21:42 4 MG Enoxaparin Sodium 40 mg DAILY SC 07/02/24 10:00 Hold 07/03/24 09:50 40 MG Ceftriaxone Sodium 50 ml @ 100 mls/hr DAILY@2100 IV 07/02/24 21:00 07/04/24 21:02 100 MLS/HR Ascorbic Acid 500 mg DAILY PO 07/02/24 10:00 07/04/24 10:11 500 MG Calcium Acetate 667 mg DAILY PO 07/02/24 10:00 07/04/24 10:11 667 MG Pantoprazole Sodium 40 mg DAILY PO 07/02/24 10:00 07/04/24 10:11 40 MG Baclofen 10 mg BID PO 07/02/24 10:00 07/04/24 22:04 10 MG Gabapentin 600 mg BID PO 07/02/24 10:00 07/04/24 22:03 600 MG Atorvastatin Calcium 10 mg HS PO 07/02/24 22:00 07/04/24 22:04 10 MG Venlafaxine HCl 75 mg BID PO 07/02/24 10:00 07/04/24 22:03 75 MG Amlodipine Besylate 5 mg DAILY PO 07/02/24 10:00 07/04/24 10:10 5 MG Hydralazine HCl 10 mg Q6HP PRN IV 07/02/24 01:30 07/02/24 02:15 10 MG Acetaminophen/ Hydrocodone Bitart 1 tab Q6HP PRN PO 07/02/24 04:45 07/04/24 21:42 1 TAB Losartan Potassium 50 mg BID PO 07/02/24 10:00 07/04/24 22:04 50 MG Melatonin 5 mg HS PO 07/02/24 22:00 07/04/24 22:04 5 MG Triamcinolone Acetonide 1 applic DAILY TOP 07/03/24 10:00 07/04/24 15:34 1 APPLIC Metoprolol Tartrate 12.5 mg DAILY PO 07/04/24 10:00 07/04/24 15:34 12.5 MG Examination General Appearance: Alert, Oriented X3, Cooperative HEENT: Atraumatic, PERRLA, EOMI, Mucous membrane moist/pink Respiratory: Clear to auscultation, Normal air movement Cardiovascular: Regular rate, Normal S1, Normal S2, No murmurs, no chest wall tenderness Abdominal: NO distention, no tenderness, bowel sounds present, no scars noted Extremities: Large lipoma in left arm Skin: No rashes, No breakdown, No significant lesion Neuro: Normal gait, Normal speech, Strength at 5/5 X4 ext, Normal tone, Sensation intact, Cranial nerves 3-12 NL, Reflexes 2+ Psych/Mental Status: Mental status NL, Mood NL laboratory and microbiology Laboratory Tests 07/05/24 07:23 Test 07/05/24 07:23 Range/Units Serum Glucose 94 74-106 mg/dL Microbiology Date/Time Source Procedure Growth Status 07/01/24 22:25 Blood Blood Culture - Preliminary NO GROWTH AFTER 72 HOURS OF INCUBATION. Resulted 07/01/24 18:10 Voided Urine Urine Culture - Final Escherichia coli Complete Labs and/or images reviewed: Labs reviewed by me, Image(s) reviewed by me Problem List/Assessment/Plan Problem List/Assessment/Plan #Urinary tract infection: E coli susceptible to ceftriaxone #General weakness, acute stroke ruled out #Pancytopenia, resolved #Hypertension #Hyperlipidemia #Rheumatoid arthritis? #Fibromyalgia? #Obesity #Overflow incontinence #Chronic pain #Heterogeneous fat containing mass in the lower pole of the right kidney measures 4.2 cm. #renal angiomyolipoma? #fat containing renal cell carcinoma? #NSVT #Mild cardiac anteroapical hypokinesis. #Mild pancytopenia #Hyponatremia: chronic DVT prophylaxis: Lovenox Diet: regular Plan Initiated IV antibiotics ( Ceftriaxone) Culture came positive for e. coli Obtained CT of the head which which negative for acute stroke No focal deficit Repeat CBC given the pancytopenia: mild anemia and thrombocytopenia Continue home medications for hypertension and hyperlipidemia Adequate pain control ( Lehr 10-325 home medication) Radiology consult for biopsy of renal mass: patient will benefit for embolization of the mass more than biopsy pr Dr Amezquita, pending cardiology clearance ECHO: Technically difficult study. Difficult acoustic windows. Left atrial enlargement. Mild RV enlargement. Concentric LVH. Moderate mitral annular calcification. Calcification at the base of the posterior mitral leaflet. Left ventricular function is preserved at 50% with normal RV function. Mild anteroapical hypokinesis. cardiology consult: today patient is having stress test due to abnormalities found in the echo Continue BB Goal of care discussed for 20 minutes: Full code Case and plan discussed with Dr. Ambrose Plan discussed with: Patient, Other (rn) Dietary Evaluation Review Recommendations by RD: Dietary education by RD Comments: 1) Add cardiac restriction to diet 2) Initiate Glucerna qd d/t decreased appetite. Encourage optimal hydration 3) Refer to outpatient RD for weight management 4) F/u with cardiology 5) Continue to monitor, labs, and skin integrity Expected Outcomes/Goals: 1) appetite and labs to improve 2) f/u in 2-3 days Addendum Addendum Addendum I was physically present for the jeffers portions of the service provided to patient by THE RESIDENT. I have reviewed the documentation, discussed the case with resident and agree with the resident's documentation except as noted. Also the patient's clinical case was discussed with the patient's nurse. This medical document was created using an electronic medical record system with computerized dictation system. Although this document has been carefully reviewed, there might still be some phonetic and typographical errors. These areas are purely typographical due to imperfections of the software programs, and do not reflect any compromise in the patient's medical care. Late signature. Date of Service: Jul 05, 2024 Billing Provider: MANDY AMBROSE MD Common Visit Codes: [id number] INP/OBS CARE(HIGH) Secondary Visit Codes: [id number] CARE PLAN 30 MINUTES (20 minutes) TAWANA CALLEJAS Jul 05, 2024 12:03 MANDY AMBROSE MD Jul 05, 2024 23:01
--- NOTE | 2024-07-05 13:44 | DVHSR ---
APPROVED REPORT Exam: Nuclear Stress Test BMI: 0 Stress Test Details HR Max Heart Rate (APMHR): 154.680337 bpm Target HR (85% APMHR): 130.516323 bpm BP ECG Stress ECG Conclusion lvef 68% markedly abnormal stress entire myocardium on stress imaging has decreased counts, this raises the suspicioin of image artifac t and poor quality study however this could be multivessel cad further imaging with coronary CTA or cardiac cath is warranted NM EXAM: Myocardial Perfusion REST/STRESS Imaging Protocol: Rest Tc-99m/Stress Tc-99m 1 day Resting Data Rest SPECT myocardial perfusion imaging was performed in supine position 60 minutes following the int ravenous injection of 14 mCi of Tc-99m Sestamibi. Time of rest injection: 0810 Time of rest imagin Administration Route: IV Administration Site: Left Arm Pharmacologic Stress Pharmacologic stress test was performed by injecting Regadenoson 0.4 mg IV push followed by the intra venous injection of 31 mCi of Tc-99m Sestamibi. Time of stress injection: 1005 Time of stress imagin Administration Route: IV Administration Site: Left Arm Gated Stress SPECT was performed 60 minutes after stress injection. The images were gated to evaluate regional wall motion and calculate left ventricular ejection fracti on. Stress only was performed in the Supine position. Nuclear Conclusion Nuclear Findings: positive for ischemia lvef 68% markedly abnormal stress entire myocardium on stress imaging has decreased counts, this raises the suspicioin of image artifac t and poor quality study however this could be multivessel cad further imaging with coronary CTA or cardiac cath is warranted
--- NOTE | 2024-07-05 14:07 | DVH ---
EXAM: US LEFT UPPER EXT Clinical History: LIPOMA Comparison: None Technique: Grayscale ultrasound of the left upper extremity soft tissues performed with color Dopple r and spectral/pulsed waveform as indicated. Findings/Impression: No focal fluid collections, cystic, or solid lesions. Unremarkable sonographic exam of the left upper extremity.
--- NOTE | 2024-07-05 14:07 | DVH ---
US Right upper Ext., HISTORY: LIPOMA TECHNICAL DATA: Transverse and longitudinal sonographic images were obtained of the right proximal ar m. COMPARISON: None FINDINGS: IMPRESSION: No irregular structures seen in the arm soft tissue.
--- NOTE | 2024-07-05 21:21 | DVHPN2 ---
Progress Note - Dictate Date Seen: Jul 05, 2024 Has the PT tested + for MRSA If YES, has PT been informed?: No Medical Necessity Reason Pt with a Central, PICC or Fol: No Subjective Patient was seen and evaluated in follow up. No new complaints. Patient undergoing stress test today due to abnormalities found on Echo. Na improved to 133. vital signs Vital Sign Date Time Temp Pulse Resp B/P (MAP) Pulse Ox O2 Delivery O2 Flow Rate FiO2 07/05/24 21:00 133/75 07/05/24 20:00 80 07/05/24 20:00 Room Air* 0 21 07/05/24 17:23 98.9 18 90 98.9 Total Intake and Output 07/04/24 07/04/24 07/05/24 15:00 23:00 07:00 Intake Total 750 ml 240 ml Output Total 1700 ml 2400 ml Balance -950 ml -2160 ml medications Current Medications Medications Dose Ordered Sig/Ashish Route Start Time Stop Time Status Last Admin Dose Admin Acetaminophen 650 mg Q6HP PRN PO 07/01/24 22:00 07/03/24 19:47 650 MG Ondansetron HCl 4 mg Q4HP PRN IV 07/01/24 22:00 07/04/24 21:42 4 MG Enoxaparin Sodium 40 mg DAILY SC 07/02/24 10:00 Hold 07/03/24 09:50 40 MG Ceftriaxone Sodium 50 ml @ 100 mls/hr DAILY@2100 IV 07/02/24 21:00 07/05/24 21:00 100 MLS/HR Ascorbic Acid 500 mg DAILY PO 07/02/24 10:00 07/05/24 12:07 500 MG Calcium Acetate 667 mg DAILY PO 07/02/24 10:00 07/05/24 12:07 667 MG Pantoprazole Sodium 40 mg DAILY PO 07/02/24 10:00 07/05/24 12:07 40 MG Baclofen 10 mg BID PO 07/02/24 10:00 07/05/24 20:59 10 MG Gabapentin 600 mg BID PO 07/02/24 10:00 07/05/24 20:58 600 MG Atorvastatin Calcium 10 mg HS PO 07/02/24 22:00 07/05/24 20:58 10 MG Venlafaxine HCl 75 mg BID PO 07/02/24 10:00 07/05/24 20:59 75 MG Amlodipine Besylate 5 mg DAILY PO 07/02/24 10:00 07/05/24 12:13 5 MG Hydralazine HCl 10 mg Q6HP PRN IV 07/02/24 01:30 07/02/24 02:15 10 MG Acetaminophen/ Hydrocodone Bitart 1 tab Q6HP PRN PO 07/02/24 04:45 07/04/24 21:42 1 TAB Losartan Potassium 50 mg BID PO 07/02/24 10:00 07/05/24 21:00 50 MG Melatonin 5 mg HS PO 07/02/24 22:00 07/05/24 20:57 5 MG Triamcinolone Acetonide 1 applic DAILY TOP 07/03/24 10:00 07/05/24 10:00 1 APPLIC Metoprolol Tartrate 12.5 mg DAILY PO 07/04/24 10:00 07/05/24 12:14 12.5 MG objective Vitals and nursing notes reviewed. General Appearance: Alert, Oriented X3, Cooperative HEENT: Atraumatic, PERRLA, EOMI, Mucous membrane moist/pink Respiratory: Clear to auscultation, Normal air movement Cardiovascular: Regular rate, Normal S1, Normal S2, No murmurs, no chest wall tenderness Abdominal: No distention, no tenderness, bowel sounds present, no scars noted Extremities: Disproportionate upper extremities Neuro: Normal gait, Normal speech, Strength at 5/5 X4 ext, Normal tone, Sensation intact, Cranial nerves 3-12 NL, Reflexes 2+ Psych/Mental Status: Mental status NL, Mood NL Skin: No rashes, No breakdown, No significant lesion laboratory and microbiology Laboratory Tests 07/05/24 07:23 Test 07/05/24 07:23 Range/Units Serum Glucose 94 74-106 mg/dL Problem List Urinary tract infection General weakness Hyponatremia Pancytopenia Hypertension Hyperlipidemia Rheumatoid arthritis Obesity Overflow incontinence Chronic pain Assessment/Plan Agree with current supportive medical care. Cardiology following. Stress test pending today. Patient has been recommended for embolization of the mass more than biopsy per Dr. Amezquita. Pending cardiology clearance. PT as recommended. Monitor daily labs; electrolyte replacement prn. IV antibiotics with Ceftriaxone. Continue home medications as ordered. GI/DVT prophylaxis. Additional plan as per the hospital course. Dietary Evaluation Review Recommendations by RD: Dietary education by RD Comments: 1) Add cardiac restriction to diet 2) Initiate Glucerna qd d/t decreased appetite. Encourage optimal hydration 3) Refer to outpatient RD for weight management 4) F/u with cardiology 5) Continue to monitor, labs, and skin integrity Expected Outcomes/Goals: 1) appetite and labs to improve 2) f/u in 2-3 days Plan discussed with: Patient, Other (RN) RO MCGEE DO Jul 05, 2024 21:21
[2024-07-06] VITALS (8 sets, daily range): BP systolic 129–165; BP diastolic 42–66; PULSE 71–91; RESP 16–19; TEMP 97.9–99.1; O2SAT 92–97
--- NOTE | 2024-07-06 10:11 | DVHPN2 ---
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 Denies any cardiac symptoms at time of assessment Objective vital signs Vital Sign Date Time Temp Pulse Resp B/P (MAP) Pulse Ox O2 Delivery O2 Flow Rate FiO2 07/06/24 09:27 81 125/61 07/06/24 08:30 98.1 18 97 98.1 07/05/24 20:00 Room Air* 0 21 Total Intake and Output 07/05/24 07/05/24 07/06/24 15:00 23:00 07:00 Intake Total 1700 ml 1200 ml Output Total 1000 ml 1000 ml Balance 700 ml 200 ml medications Current Medications Medications Dose Ordered Sig/Ashish Route Start Time Stop Time Status Last Admin Dose Admin Acetaminophen 650 mg Q6HP PRN PO 07/01/24 22:00 07/03/24 19:47 650 MG Ondansetron HCl 4 mg Q4HP PRN IV 07/01/24 22:00 07/04/24 21:42 4 MG Enoxaparin Sodium 40 mg DAILY SC 07/02/24 10:00 Hold 07/03/24 09:50 40 MG Ceftriaxone Sodium 50 ml @ 100 mls/hr DAILY@2100 IV 07/02/24 21:00 07/05/24 21:00 100 MLS/HR Ascorbic Acid 500 mg DAILY PO 07/02/24 10:00 07/06/24 09:26 500 MG Calcium Acetate 667 mg DAILY PO 07/02/24 10:00 07/06/24 09:25 667 MG Pantoprazole Sodium 40 mg DAILY PO 07/02/24 10:00 07/06/24 09:26 40 MG Baclofen 10 mg BID PO 07/02/24 10:00 07/06/24 09:27 10 MG Gabapentin 600 mg BID PO 07/02/24 10:00 07/06/24 09:25 600 MG Atorvastatin Calcium 10 mg HS PO 07/02/24 22:00 07/05/24 20:58 10 MG Venlafaxine HCl 75 mg BID PO 07/02/24 10:00 07/06/24 09:28 75 MG Amlodipine Besylate 5 mg DAILY PO 07/02/24 10:00 07/06/24 09:27 5 MG Hydralazine HCl 10 mg Q6HP PRN IV 07/02/24 01:30 07/02/24 02:15 10 MG Acetaminophen/ Hydrocodone Bitart 1 tab Q6HP PRN PO 07/02/24 04:45 07/05/24 23:18 1 TAB Losartan Potassium 50 mg BID PO 07/02/24 10:00 07/06/24 09:26 50 MG Melatonin 5 mg HS PO 07/02/24 22:00 07/05/24 20:57 5 MG Triamcinolone Acetonide 1 applic DAILY TOP 07/03/24 10:00 07/06/24 09:28 1 APPLIC Metoprolol Tartrate 12.5 mg DAILY PO 07/04/24 10:00 07/06/24 09:27 12.5 MG Examination: GENERAL:Normal, LUNGS:Normal, CVS:Normal, NEURO:Normal laboratory and microbiology Test 07/06/24 09:41 Range/Units Serum Glucose Pending Problem List/Assessment/Plan Problem List/Assessment/Plan Ischemic nuclear stress test, rule out coronary artery disease Nonsustained ventricular tachycardia Hypertensive urgency, resolved Dyslipidemia Pancytopenia Urinary tract infection Mass in lower pole of right kidney (4.2cm) History of rheumatoid arthritis Morbid obesity Plan/Recommendation (Dr. Veliz): Case discussed with . Transthoracic echocardiogram reveals EF of 50% with mild anteroapical hypokinesis. The patient underwent a nuclear stress test in which nuclear findings were positive for ischemia. At this time, we will rec ommend for the patient to undergo a coronary angiogram with left heart catheterization.The procedure was discussed with the patient in full detail including risks and benefits. Risks include but are not limited to bleeding, contrast-induced nephropathy, stroke, and even . The patient understands and is agreeable to undergo the procedure. We will schedule the patient on 07/07. In the meantime, continue with beta-martin, blood pressure control, and lipid-lowering agent. Thank you for allowing us to care for this patient. Please call with any questions or concerns. This medical document was created using an electronic medical record system with voice recognition software and computerized dictation system. Although this document has been carefully reviewed, there might still be some phonetic and typographical errors. Occasional wrong-word or ``sound-alike substitutions may have occurred due to the inherent limitations of voice recognition software. These areas are purely typographical due to imperfections of the software programs and do not reflect any compromise in the patient's medical care. Please read the chart carefully and recognize, using context, where these substitutions have occurred. Plan discussed with: Patient Dietary Evaluation Review Recommendations by RD: Dietary education by RD Comments: 1) Add cardiac restriction to diet 2) Initiate Glucerna qd d/t decreased appetite. Encourage optimal hydration 3) Refer to outpatient RD for weight management 4) F/u with cardiology 5) Continue to monitor, labs, and skin integrity Expected Outcomes/Goals: 1) appetite and labs to improve 2) f/u in 2-3 days Date of Service: Jul 06, 2024 Billing Provider: JOSE ROBERTO DIAZ Common Visit Codes: [id number] INP/OBS CARE(HIGH) JOSE ROBERTO DIAZ Jul 06, 2024 10:11
[2024-07-06 10:28] LABS: Basophils # (auto) 0 10 ^3/uL (0-0.2); Basophils % (auto) 0.4 % (0.0-2.0); Eosinophils # (auto) 0.2 10 ^3/uL (0-0.8); Eosinophils % (auto) 4.3 % (0.0-7.0); Hematocrit 34.9 % (36.0-46.0); Hemoglobin 11.6 g/dL (12.2-16.2); Lymphocytes % (auto) 21.7 % (10.0-50.0); Mean Corpuscular Hemoglobin 34.8 pg (28.0-32.0); Mean Corpuscular Hgb Conc. 33.4 g/dL (32.0-36.0); Mean Corpuscular Volume 104.3 fL (80.0-100.0); Monocytes # (auto) 0.6 10 ^3/uL (0-1.3); Monocytes % (auto) 12.9 % (0.0-12.0); Neutrophils # (auto) 2.7 10 ^3/uL (1.6-8.6); Neutrophils % (auto) 60.7 % (37.0-80.0); Platelet Count (auto) 152 10^3/uL (140-450); Red Blood Cells 3.35 10^6/uL (4.0-5.20); Red Cell Distribution Width 14.2 % (11.8-14.3); White Blood Cell 4.5 10^3/uL (4.4-10.8)
[2024-07-06 10:38] LABS: Alanine Aminotransferase 28 U/L (7-40); Albumin 3.9 g/dL (3.2-4.8); Alkaline Phosphatase 116 U/L (46-116); Anion Gap 8 (5-15); BUN/Creatinine Ratio 6.4 (10.0-20.0); Bilirubin, Total 0.4 mg/dL (0.2-1.0); Calcium 9.2 mg/dL (8.7-10.4); Carbon Dioxide 29 mmol/L (20-31); Glucose 95 mg/dL (74-106); Total Protein 7.2 g/dL (5.7-8.2)
[2024-07-06 10:42] LABS: Aspartate Aminotransferase 42 U/L (13-40); Blood Urea Nitrogen 5 mg/dL (9-23); Chloride 95 mmol/L (98-107); Potassium 3.2 mmol/L (3.5-5.1); Sodium 132 mmol/L (136-145)
--- NOTE | 2024-07-06 11:12 | DVHPNRES ---
Progress Note Date Seen: Jul 06, 2024 Resident Creating Document: TAWANA CALLEJAS RESIDENT Has the PT tested + for MRSA If YES, has PT been informed?: No Medical Necessity Reason Pt with a Central, PICC or Fol: No Subjective Review of Systems Patient is a 64-year-old female visiting to the ED with 1 day history of generalized weakness. According to the patient she woke up at night around 1:00 a.m. went to use the bathroom and she felt really weak unable to walk back to the bed. Patient said she felt really weak and thought completely unwell also with an associated headache she measured her blood pressure and it was extremely elevated at 191/97. Thus, prompting the visit to the today. She denies any nausea vomiting chest pain or shortness of breadth. Initial labs revealed pancytopenia, UTI and a 12 lead EKG revealed left bundle branch block. Chest x- ray was grossly unremarkable and CT of the head revealed did not show any acute intracranial abnormality, there is mild chronic microvascular ischemic changes. Past medical history: Hypertension, hyperlipidemia, pinched nerve, rheumatoid arthritis, fibromyalgia Past surgical history: Multiple surgeries on her wrist bilaterally Medication includes losartan, [place], gabapentin, amlodipine, pantoprazole, baclofen, simvastatin, amitriptyline venlafaxine and multivitamins CT scan abdomen: Heterogeneous fat containing mass in the lower pole of the right kidney measures 4.2 cm. Differential considerations could include renal angiomyolipoma or fat containing renal cell carcinoma. Cardiology has now been consulted for echo findings of mild anteroapical hypokinesis and an episode of nonsustained V-tach. IR concept: patient will benefit on embolization of renal mass more than biopsy (pending cardiology clearance) Stress test: Nuclear Findings: positive for ischemia lvef 68% markedly abnormal stress entire myocardium on stress imaging has decreased counts, this raises the suspicioin of image artifact and poor quality study however this could be multivessel cad further imaging with coronary CTA or cardiac cath is warranted Cardiology will perform LHC tomorrow Objective vital signs Vital Sign Date Time Temp Pulse Resp B/P (MAP) Pulse Ox O2 Delivery O2 Flow Rate FiO2 07/06/24 09:27 81 125/61 07/06/24 08:30 98.1 18 97 98.1 07/05/24 20:00 Room Air* 0 21 Total Intake and Output 07/05/24 07/05/24 07/06/24 15:00 23:00 07:00 Intake Total 1700 ml 1200 ml Output Total 1000 ml 1000 ml Balance 700 ml 200 ml medications Current Medications Medications Dose Ordered Sig/Ashish Route Start Time Stop Time Status Last Admin Dose Admin Acetaminophen 650 mg Q6HP PRN PO 07/01/24 22:00 07/03/24 19:47 650 MG Ondansetron HCl 4 mg Q4HP PRN IV 07/01/24 22:00 07/04/24 21:42 4 MG Enoxaparin Sodium 40 mg DAILY SC 07/02/24 10:00 Hold 07/03/24 09:50 40 MG Ceftriaxone Sodium 50 ml @ 100 mls/hr DAILY@2100 IV 07/02/24 21:00 07/05/24 21:00 100 MLS/HR Ascorbic Acid 500 mg DAILY PO 07/02/24 10:00 07/06/24 09:26 500 MG Calcium Acetate 667 mg DAILY PO 07/02/24 10:00 07/06/24 09:25 667 MG Pantoprazole Sodium 40 mg DAILY PO 07/02/24 10:00 07/06/24 09:26 40 MG Baclofen 10 mg BID PO 07/02/24 10:00 07/06/24 09:27 10 MG Gabapentin 600 mg BID PO 07/02/24 10:00 07/06/24 09:25 600 MG Atorvastatin Calcium 10 mg HS PO 07/02/24 22:00 07/05/24 20:58 10 MG Venlafaxine HCl 75 mg BID PO 07/02/24 10:00 07/06/24 09:28 75 MG Amlodipine Besylate 5 mg DAILY PO 07/02/24 10:00 07/06/24 09:27 5 MG Hydralazine HCl 10 mg Q6HP PRN IV 07/02/24 01:30 07/02/24 02:15 10 MG Acetaminophen/ Hydrocodone Bitart 1 tab Q6HP PRN PO 07/02/24 04:45 07/05/24 23:18 1 TAB Losartan Potassium 50 mg BID PO 07/02/24 10:00 07/06/24 09:26 50 MG Melatonin 5 mg HS PO 07/02/24 22:00 07/05/24 20:57 5 MG Triamcinolone Acetonide 1 applic DAILY TOP 07/03/24 10:00 07/06/24 09:28 1 APPLIC Metoprolol Tartrate 12.5 mg DAILY PO 07/04/24 10:00 07/06/24 09:27 12.5 MG Examination General Appearance: Alert, Oriented X3, Cooperative HEENT: Atraumatic, PERRLA, EOMI, Mucous membrane moist/pink Respiratory: Clear to auscultation, Normal air movement Cardiovascular: Regular rate, Normal S1, Normal S2, No murmurs, no chest wall tenderness Abdominal: NO distention, no tenderness, bowel sounds present, no scars noted Extremities: Excessive skin folds in upper arms Skin: No rashes, No breakdown, No significant lesion Neuro: Normal gait, Normal speech, Strength at 5/5 X4 ext, Normal tone, Sensation intact, Cranial nerves 3-12 NL, Reflexes 2+ Psych/Mental Status: Mental status NL, Mood NL laboratory and microbiology Laboratory Tests 07/06/24 09:41 Test 07/06/24 09:41 Range/Units Serum Glucose 95 74-106 mg/dL Microbiology Date/Time Source Procedure Growth Status 07/01/24 22:25 Blood Blood Culture - Preliminary NO GROWTH AFTER 72 HOURS OF INCUBATION. 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 #Fibromyalgia? #Obesity #Overflow incontinence #Chronic pain #Heterogeneous fat containing mass in the lower pole of the right kidney measures 4.2 cm. #renal angiomyolipoma? #fat containing renal cell carcinoma? #NSVT #Mild cardiac anteroapical hypokinesis. #Mild pancytopenia #Hyponatremia: chronic DVT prophylaxis: Lovenox Diet: regular Plan Initiated IV antibiotics ( Ceftriaxone) Culture came positive for E. coli Obtained CT of the head which which negative for acute stroke No focal deficit Continue home medications for hypertension and hyperlipidemia Adequate pain control ( [place] 10-325 home medication) Radiology consult for biopsy of renal mass: patient will benefit for embolization of the mass more than biopsy pr Dr Amezquita, pending cardiology clearance ECHO: Technically difficult study. Difficult acoustic windows. Left atrial enlargement. Mild RV enlargement. Concentric LVH. Moderate mitral annular calcification. Calcification at the base of the posterior mitral leaflet. Left ventricular function is preserved at 50% with normal RV function. Mild anteroapical hypokinesis. Stress test positive for ischemia: LHC tomorrow; NPO after midnight Continue BB Bilateral US in the arms: ruled out any lipomas or masses Code status: Full code Case and plan discussed with Dr. Ambrose Plan discussed with: Patient, Other (rn) My Orders My Orders Orders - TAWANA CALLEJAS RESIDENT Procedure Category Date Status Time Right Upper Ext. US 07/05/24 Resulted 13:12 Left Upper Ext US 07/05/24 Resulted Dietary Evaluation Review Recommendations by RD: Dietary education by RD Comments: 1) Add cardiac restriction to diet 2) Initiate Glucerna qd d/t decreased appetite. Encourage optimal hydration 3) Refer to outpatient RD for weight management 4) F/u with cardiology 5) Continue to monitor, labs, and skin integrity Expected Outcomes/Goals: 1) appetite and labs to improve 2) f/u in 2-3 days Addendum Addendum Addendum I was physically present for the jeffers portions of the service provided to patient by THE RESIDENT. I have reviewed the documentation, discussed the case with resident and agree with the resident's documentation except as noted. Also the patient's clinical case was discussed with the patient's nurse. This medical document was created using an electronic medical record system with computerized dictation system. Although this document has been carefully reviewed, there might still be some phonetic and typographical errors. These areas are purely typographical due to imperfections of the software programs, and do not reflect any compromise in the patient's medical care. Late signature. Date of Service: Jul 06, 2024 Billing Provider: MANDY AMBROSE MD Common Visit Codes: [id number] INP/OBS CARE(HIGH) TAWANA CALLEJAS RESIDENT Jul 06, 2024 11:12 MANDY AMBROSE MD Jul 07, 2024 05:16
--- NOTE | 2024-07-06 20:33 | DVHPN2 ---
Progress Note - Dictate Date Seen: Jul 06, 2024 Has the PT tested + for MRSA If YES, has PT been informed?: No Medical Necessity Reason Pt with a Central, PICC or Fol: No Subjective Patient was seen and evaluated in follow up. No acute events. Patient denies any complaints. AM labs are remarkable for Na 132. K 3.2. Cl 95. Cardiac stress test was positive for ischemia. Patient is planned for Cor Angio with left heart catheterization tomorrow. vital signs Vital Sign Date Time Temp Pulse Resp B/P (MAP) Pulse Ox O2 Delivery O2 Flow Rate FiO2 07/06/24 17:14 98.3 83 18 158/62 (94) 92 98.3 07/06/24 08:06 Room Air* 0 21 Total Intake and Output 07/05/24 07/05/24 07/06/24 15:00 23:00 07:00 Intake Total 1700 ml 1200 ml Output Total 1000 ml 1000 ml Balance 700 ml 200 ml medications Current Medications Medications Dose Ordered Sig/Ashsih Route Start Time Stop Time Status Last Admin Dose Admin Acetaminophen 650 mg Q6HP PRN PO 07/01/24 22:00 07/03/24 19:47 650 MG Ondansetron HCl 4 mg Q4HP PRN IV 07/01/24 22:00 07/04/24 21:42 4 MG Enoxaparin Sodium 40 mg DAILY SC 07/02/24 10:00 Hold 07/03/24 09:50 40 MG Ceftriaxone Sodium 50 ml @ 100 mls/hr DAILY@2100 IV 07/02/24 21:00 07/05/24 21:00 100 MLS/HR Ascorbic Acid 500 mg DAILY PO 07/02/24 10:00 07/06/24 09:26 500 MG Calcium Acetate 667 mg DAILY PO 07/02/24 10:00 07/06/24 09:25 667 MG Pantoprazole Sodium 40 mg DAILY PO 07/02/24 10:00 07/06/24 09:26 40 MG Baclofen 10 mg BID PO 07/02/24 10:00 07/06/24 09:27 10 MG Gabapentin 600 mg BID PO 07/02/24 10:00 07/06/24 09:25 600 MG Atorvastatin Calcium 10 mg HS PO 07/02/24 22:00 07/05/24 20:58 10 MG Venlafaxine HCl 75 mg BID PO 07/02/24 10:00 07/06/24 09:28 75 MG Amlodipine Besylate 5 mg DAILY PO 07/02/24 10:00 07/06/24 09:27 5 MG Hydralazine HCl 10 mg Q6HP PRN IV 07/02/24 01:30 07/02/24 02:15 10 MG Acetaminophen/ Hydrocodone Bitart 1 tab Q6HP PRN PO 07/02/24 04:45 07/05/24 23:18 1 TAB Losartan Potassium 50 mg BID PO 07/02/24 10:00 07/06/24 09:26 50 MG Melatonin 5 mg HS PO 07/02/24 22:00 07/05/24 20:57 5 MG Triamcinolone Acetonide 1 applic DAILY TOP 07/03/24 10:00 07/06/24 09:28 1 APPLIC Metoprolol Tartrate 12.5 mg DAILY PO 07/04/24 10:00 07/06/24 09:27 12.5 MG objective Vitals and nursing notes reviewed. General Appearance: Alert, Oriented X3, Cooperative HEENT: Atraumatic, PERRLA, EOMI, Mucous membrane moist/pink Respiratory: Clear to auscultation, Normal air movement Cardiovascular: Regular rate, Normal S1, Normal S2, No murmurs, no chest wall tenderness Abdominal: No distention, no tenderness, bowel sounds present, no scars noted Extremities: Disproportionate upper extremities Neuro: Normal gait, Normal speech, Strength at 5/5 X4 ext, Normal tone, Sensation intact, Cranial nerves 3-12 NL, Reflexes 2+ Psych/Mental Status: Mental status NL, Mood NL Skin: No rashes, No breakdown, No significant lesion laboratory and microbiology Laboratory Tests 07/06/24 09:41 Test 07/06/24 09:41 Range/Units Serum Glucose 95 74-106 mg/dL Problem List Urinary tract infection General weakness Hyponatremia Pancytopenia Hypertension Hyperlipidemia Rheumatoid arthritis Obesity Overflow incontinence Chronic pain Assessment/Plan Agree with current supportive medical care. Cardiology following. Planned for Cor Angio with left heart catheterization tomorrow. NPO at midnight. Patient has been recommended for embolization of the mass more than biopsy per Dr. Amezquita. Pending cardiology clearance. PT as recommended. Monitor daily labs; electrolyte replacement prn. IV antibiotics with Ceftriaxone. Continue home medications as ordered. GI/DVT prophylaxis. Additional plan as per the hospital course. Dietary Evaluation Review Recommendations by RD: Dietary education by RD Comments: 1) Add cardiac restriction to diet 2) Initiate Glucerna qd d/t decreased appetite. Encourage optimal hydration 3) Refer to outpatient RD for weight management 4) F/u with cardiology 5) Continue to monitor, labs, and skin integrity Expected Outcomes/Goals: 1) appetite and labs to improve 2) f/u in 2-3 days Plan discussed with: Patient, Other (RN) RO MCGEE DO Jul 06, 2024 20:33
[2024-07-07] VITALS (12 sets, daily range): BP systolic 119–172; BP diastolic 51–70; PULSE 71–87; RESP 11–20; TEMP 97.6–98.3; O2SAT 94–97
[2024-07-07 07:28] LABS: Basophils # (auto) 0 10 ^3/uL (0-0.2); Basophils % (auto) 0.5 % (0.0-2.0); Eosinophils # (auto) 0.2 10 ^3/uL (0-0.8); Eosinophils % (auto) 4.3 % (0.0-7.0); Hemoglobin 11.5 g/dL (12.2-16.2); Lymphocytes # (auto) 1.4 10 ^3/uL (0.4-5.4); Lymphocytes % (auto) 31.8 % (10.0-50.0); Mean Corpuscular Hemoglobin 35.8 pg (28.0-32.0); Mean Corpuscular Hgb Conc. 33.8 g/dL (32.0-36.0); Mean Corpuscular Volume 105.9 fL (80.0-100.0); Monocytes # (auto) 0.7 10 ^3/uL (0-1.3); Monocytes % (auto) 15.1 % (0.0-12.0); Neutrophils # (auto) 2.1 10 ^3/uL (1.6-8.6); Neutrophils % (auto) 48.3 % (37.0-80.0); Nucleated Red Blood Cells % 0.3 %; Platelet Count (auto) 128 10^3/uL (140-450); Red Blood Cells 3.21 10^6/uL (4.0-5.20); Red Cell Distribution Width 14.1 % (11.8-14.3); White Blood Cell 4.4 10^3/uL (4.4-10.8)
[2024-07-07 08:53] LABS: Chloride 99 mmol/L (98-107)
[2024-07-07 08:54] LABS: Anion Gap 8 (5-15); Calcium 8.9 mg/dL (8.7-10.4); Carbon Dioxide 28 mmol/L (20-31)
[2024-07-07 08:59] LABS: BUN/Creatinine Ratio 7.7 (10.0-20.0); Glucose 95 mg/dL (74-106); Potassium 3.5 mmol/L (3.5-5.1); Sodium 135 mmol/L (136-145)
[2024-07-07 09:00] LABS: Blood Urea Nitrogen 5 mg/dL (9-23)
[2024-07-07] MEDS: HEPARIN IN NS 1000Units/500mL 1,500 ML ONE (09:59)
[2024-07-07] MEDS: IODIXANOL 320MG/ML 100ML BTL IV ONE (09:59)
[2024-07-07] MEDS: fentaNYL CITRATE 100 MCG/2 ML VL ONE (10:26)
[2024-07-07] MEDS: HEPARIN SODIUM (PORCINE) 5000 UNITS/ML 1ML VIAL ONE (10:26)
[2024-07-07] MEDS: MIDAZOLAM HCL 2MG/2ML 2ml VIAL (1mg/ml) ONE (10:26)
[2024-07-07] MEDS: ANGIOMAX 250 MG VIAL IV ONE (10:26)
[2024-07-07] MEDS: VERAPAMIL 2.5MG/ML INJ 2ML VIAL IV ONE (10:26)
[2024-07-07] MEDS: LIDOCAINE 2%HCL (LOCAL ANESTH.) INJ 20ML MDV ONE (10:27)
--- NOTE | 2024-07-07 12:41 | DVHOP2 ---
Operative Report - 2 Report Details Date: 07/07/24 Preop Diagnosis: CAD Postop Diagnosis: Normal coronary artery. Normal ejection fraction. Surgeon: Elle Veliz MD Anesthesiologist: Conscious sedation Anesthesia: Mac, Local (Conscious sedation ordered by me. % and fentanyl given. I monitored the patient throughout the procedure) Consent: The patient was informed of the risks and benefits of the procedure. These include but are not limited to complications of anesthesia, postoperative infection, incomplete relief of symptoms, recurrence of symptoms, damage to blood vessels, nerves and tendons, deep venous thrombosis, pulmonary embolism and possible need for repeat surgery in the future. Complications: No complications. Estimated Blood Loss: 10 cc Findings: Normal coronaries. Normal ejection fraction. Indications for Surgery: Chest pain Name of Procedure Performed Bilateral cine coronary angiography. Left ventriculography. Procedure Details Procedure Details: Prior local anesthesia with 2% lidocaine to the right wrist and under fluoroscopic and ultrasound guidance we placed a six Kinyarwanda sheath into the radial artery through which a Raphael catheter was used for ventriculography and cannulation of both right and left coronary ostia without complications. Hemodynamics: Aortic blood pressure was 110/70. End-diastolic pressure was 12. No gradient across the valve on pullback. Coronary anatomy: The RCA is a large vessel it is normal in its proximal mid and distal segments. The PDA and posterolateral branches are normal. Left main is large and normal. Left anterior descending coronary artery is large normal diagonals and septals. Circumflex and obtuse marginal branches are within normal limits. Ventriculography in the GABRIEL projection shows an EF of 60%. Impression: Normal left ventricular end-diastolic pressure at rest. Normal ejection fraction. No significant CAD. Recommendations medical therapy is warranted continue risk factor modification. End of dictation Condition Good Disposition Still a Patient Date of Service: Jul 07, 2024 Billing Provider: ELLE VELIZ Sr., MD Cardiology Common Codes: [id number] INP/OBS CARE (High), PROCEDURE ONLY Cardiology Procedure Codes: 92869-GY CARDIOVERSION ELLE VELIZ Sr., MD Jul 07, 2024 12:41
--- NOTE | 2024-07-07 14:02 | DVHPN2 ---
Consult Progress Note Date Seen: Jul 07, 2024 Subjective Review of Systems: CVS:Normal, RESPIRATORY:Normal, NEURO:Normal Objective vital signs Vital Sign Date Time Temp Pulse Resp B/P (MAP) Pulse Ox O2 Delivery O2 Flow Rate FiO2 07/07/24 10:00 100/60 07/07/24 09:30 97.9 77 18 94 97.9 07/07/24 08:19 Room Air* 0 21 Total Intake and Output 07/06/24 07/06/24 07/07/24 14:59 22:59 06:59 Intake Total 1300 ml 1140 ml Output Total 1200 ml 2200 ml Balance 100 ml -1060 ml medications Current Medications Medications Dose Ordered Sig/Ashish Route Start Time Stop Time Status Last Admin Dose Admin Acetaminophen 650 mg Q6HP PRN PO 07/01/24 22:00 07/03/24 19:47 650 MG Ondansetron HCl 4 mg Q4HP PRN IV 07/01/24 22:00 07/04/24 21:42 4 MG Enoxaparin Sodium 40 mg DAILY SC 07/02/24 10:00 Hold 07/03/24 09:50 40 MG Ceftriaxone Sodium 50 ml @ 100 mls/hr DAILY@2100 IV 07/02/24 21:00 07/06/24 21:43 100 MLS/HR Ascorbic Acid 500 mg DAILY PO 07/02/24 10:00 07/06/24 09:26 500 MG Calcium Acetate 667 mg DAILY PO 07/02/24 10:00 07/06/24 09:25 667 MG Pantoprazole Sodium 40 mg DAILY PO 07/02/24 10:00 07/06/24 09:26 40 MG Baclofen 10 mg BID PO 07/02/24 10:00 07/06/24 21:45 10 MG Gabapentin 600 mg BID PO 07/02/24 10:00 07/06/24 21:45 600 MG Atorvastatin Calcium 10 mg HS PO 07/02/24 22:00 07/06/24 21:44 10 MG Venlafaxine HCl 75 mg BID PO 07/02/24 10:00 07/06/24 21:45 75 MG Amlodipine Besylate 5 mg DAILY PO 07/02/24 10:00 07/06/24 09:27 5 MG Hydralazine HCl 10 mg Q6HP PRN IV 07/02/24 01:30 07/02/24 02:15 10 MG Acetaminophen/ Hydrocodone Bitart 1 tab Q6HP PRN PO 07/02/24 04:45 07/06/24 21:46 1 TAB Losartan Potassium 50 mg BID PO 07/02/24 10:00 07/06/24 21:46 50 MG Melatonin 5 mg HS PO 07/02/24 22:00 07/06/24 21:45 5 MG Triamcinolone Acetonide 1 applic DAILY TOP 07/03/24 10:00 07/06/24 09:28 1 APPLIC Metoprolol Tartrate 12.5 mg DAILY PO 07/04/24 10:00 07/06/24 09:27 12.5 MG Examination: LUNGS:Normal, CVS:Normal, NEURO:Normal laboratory and microbiology Laboratory Tests 07/07/24 08:28 07/07/24 06:20 Test 07/07/24 08:28 Range/Units Serum Glucose 95 74-106 mg/dL Problem List/Assessment/Plan Problem List/Assessment/Plan Coronary artery disease ruled out on [facility] Nonsustained ventricular tachycardia Hypertensive urgency, resolved Dyslipidemia Pancytopenia Urinary tract infection Mass in lower pole of right kidney (4.2cm) History of rheumatoid arthritis Morbid obesity Plan/Recommendation (Dr. Veliz): Transthoracic echocardiogram reveals EF of 50% with mild anteroapical hypokinesis. Coronary angiogram with left heart catheterization negative for significant coronary artery disease. Continue blood pressure control. There is no further cardiac work-up indicated at this time. Kindly call if in need to re-consult. Thank you for allowing us to care for this patient. This medical document was created using an electronic medical record system with voice recognition software and computerized dictation system. Although this document has been carefully reviewed, there might still be some phonetic and typographical errors. Occasional wrong-word or ``sound-alike substitutions may have occurred due to the inherent limitations of voice recognition software. These areas are purely typographical due to imperfections of the software programs and do not reflect any compromise in the patient's medical care. Please read the chart carefully and recognize, using context, where these substitutions have occurred. Plan discussed with: Patient, Other Dietary Evaluation Review Recommendations by RD: Dietary education by RD Comments: 1) Add cardiac restriction to diet 2) Initiate Glucerna qd d/t decreased appetite. Encourage optimal hydration 3) Refer to outpatient RD for weight management 4) F/u with cardiology 5) Continue to monitor, labs, and skin integrity Expected Outcomes/Goals: 1) appetite and labs to improve 2) f/u in 2-3 days Date of Service: Jul 07, 2024 Billing Provider: OMARI SERNA Cardiology Common Codes: [id number] INP/OBS CARE(Mod) OMARI SERNA Jul 07, 2024 14:02
--- NOTE | 2024-07-07 15:26 | DVHPNRES ---
Progress Note Date Seen: Jul 07, 2024 Resident Creating Document: TAWANA CALLEJAS RESIDENT Has the PT tested + for MRSA If YES, has PT been informed?: No Medical Necessity Reason Pt with a Central, PICC or Fol: No Subjective Review of Systems Patient is a 64-year-old female visiting to the ED with 1 day history of generalized weakness. According to the patient she woke up at night around 1:00 a.m. went to use the bathroom and she felt really weak unable to walk back to the bed. Patient said she felt really weak and thought completely unwell also with an associated headache she measured her blood pressure and it was extremely elevated at 191/97. Thus, prompting the visit to the today. She denies any nausea vomiting chest pain or shortness of breadth. Initial labs revealed pancytopenia, UTI and a 12 lead EKG revealed left bundle branch block. Chest x- ray was grossly unremarkable and CT of the head revealed did not show any acute intracranial abnormality, there is mild chronic microvascular ischemic changes. Past medical history: Hypertension, hyperlipidemia, pinched nerve, rheumatoid arthritis, fibromyalgia Past surgical history: Multiple surgeries on her wrist bilaterally Medication includes losartan, [place], gabapentin, amlodipine, pantoprazole, baclofen, simvastatin, amitriptyline venlafaxine and multivitamins CT scan abdomen: Heterogeneous fat containing mass in the lower pole of the right kidney measures 4.2 cm. Differential considerations could include renal angiomyolipoma or fat containing renal cell carcinoma. Cardiology has now been consulted for echo findings of mild anteroapical hypokinesis and an episode of nonsustained V-tach. IR concept: patient will benefit on embolization of renal mass more than biopsy (pending cardiology clearance) Stress test: Nuclear Findings: positive for ischemia lvef 68% markedly abnormal stress entire myocardium on stress imaging has decreased counts, this raises the suspicion of image artifact and poor quality study however this could be multivessel CAD further imaging with coronary CTA or cardiac cath is warranted [facility] today was normal Objective vital signs Vital Sign Date Time Temp Pulse Resp B/P (MAP) Pulse Ox O2 Delivery O2 Flow Rate FiO2 07/07/24 13:45 81 12 153/66 (95) 97 07/07/24 12:46 97.6 97.6 07/07/24 08:19 Room Air* 0 21 Total Intake and Output 07/06/24 07/06/24 07/07/24 15:00 23:00 07:00 Intake Total 1300 ml 1140 ml Output Total 1200 ml 2200 ml Balance 100 ml -1060 ml medications Current Medications Medications Dose Ordered Sig/Ashish Route Start Time Stop Time Status Last Admin Dose Admin Acetaminophen 650 mg Q6HP PRN PO 07/01/24 22:00 07/03/24 19:47 650 MG Ondansetron HCl 4 mg Q4HP PRN IV 07/01/24 22:00 07/04/24 21:42 4 MG Enoxaparin Sodium 40 mg DAILY SC 07/02/24 10:00 Hold 07/03/24 09:50 40 MG Ceftriaxone Sodium 50 ml @ 100 mls/hr DAILY@2100 IV 07/02/24 21:00 07/06/24 21:43 100 MLS/HR Ascorbic Acid 500 mg DAILY PO 07/02/24 10:00 07/06/24 09:26 500 MG Calcium Acetate 667 mg DAILY PO 07/02/24 10:00 07/06/24 09:25 667 MG Pantoprazole Sodium 40 mg DAILY PO 07/02/24 10:00 07/06/24 09:26 40 MG Baclofen 10 mg BID PO 07/02/24 10:00 07/06/24 21:45 10 MG Gabapentin 600 mg BID PO 07/02/24 10:00 07/06/24 21:45 600 MG Atorvastatin Calcium 10 mg HS PO 07/02/24 22:00 07/06/24 21:44 10 MG Venlafaxine HCl 75 mg BID PO 07/02/24 10:00 07/06/24 21:45 75 MG Amlodipine Besylate 5 mg DAILY PO 07/02/24 10:00 07/06/24 09:27 5 MG Hydralazine HCl 10 mg Q6HP PRN IV 07/02/24 01:30 07/02/24 02:15 10 MG Acetaminophen/ Hydrocodone Bitart 1 tab Q6HP PRN PO 07/02/24 04:45 07/06/24 21:46 1 TAB Losartan Potassium 50 mg BID PO 07/02/24 10:00 07/06/24 21:46 50 MG Melatonin 5 mg HS PO 07/02/24 22:00 07/06/24 21:45 5 MG Triamcinolone Acetonide 1 applic DAILY TOP 07/03/24 10:00 07/06/24 09:28 1 APPLIC Metoprolol Tartrate 12.5 mg DAILY PO 07/04/24 10:00 07/06/24 09:27 12.5 MG Examination General Appearance: Alert, Oriented X3, Cooperative HEENT: Atraumatic, PERRLA, EOMI, Mucous membrane moist/pink Respiratory: Clear to auscultation, Normal air movement Cardiovascular: Regular rate, Normal S1, Normal S2, No murmurs, no chest wall tenderness Abdominal: NO distention, no tenderness, bowel sounds present, no scars noted Extremities: Excessive skin folds in upper arms Skin: No rashes, No breakdown, No significant lesion Neuro: Normal gait, Normal speech, Strength at 5/5 X4 ext, Normal tone, Sensation intact, Cranial nerves 3-12 NL, Reflexes 2+ Psych/Mental Status: Mental status NL, Mood NL laboratory and microbiology Laboratory Tests 07/07/24 08:28 07/07/24 06:20 Test 07/07/24 08:28 Range/Units Serum Glucose 95 74-106 mg/dL Microbiology Date/Time Source Procedure Growth Status 07/01/24 22:25 Blood Blood Culture - Final NO GROWTH AFTER 5 DAYS OF INCUBATION. Complete 07/01/24 18:10 Voided Urine Urine Culture - Final Escherichia coli Complete Labs and/or images reviewed: Labs reviewed by me, Image(s) reviewed by me Problem List/Assessment/Plan Problem List/Assessment/Plan #Complicated Urinary tract infection: E coli susceptible to ceftriaxone #General weakness, acute stroke ruled out #Pancytopenia #Hypertension #Hyperlipidemia #Rheumatoid arthritis? #Fibromyalgia? #Obesity #Overflow incontinence #Chronic pain #Heterogeneous fat containing mass in the lower pole of the right kidney measures 4.2 cm. #renal angiomyolipoma? #fat containing renal cell carcinoma? #NSVT #Mild cardiac anteroapical hypokinesis. #Mild pancytopenia #Hyponatremia: chronic DVT prophylaxis: Lovenox Diet: regular Plan Initiated IV antibiotics ( Ceftriaxone) Culture came positive for E. coli Obtained CT of the head which which negative for acute stroke No focal deficit Continue home medications for hypertension and hyperlipidemia Adequate pain control ( [place] 10-325 home medication) Radiology consult for biopsy of renal mass: patient will benefit for embolization of the mass more than biopsy pr Dr Amezquita, procedure will be done as outpatient ECHO: Technically difficult study. Difficult acoustic windows. Left atrial enlargement. Mild RV enlargement. Concentric LVH. Moderate mitral annular calcification. Calcification at the base of the posterior mitral leaflet. Left ventricular function is preserved at 50% with normal RV function. Mild anteroapical hypokinesis. Stress test positive for ischemia: LHC negative, normal coronary arteries Continue BB Bilateral US in the arms: ruled out any lipomas or masses D/C tomorrow Code status: Full code Case and plan discussed with Dr. Ambrose Plan discussed with: Patient, Other (rn) Dietary Evaluation Review Recommendations by RD: Dietary education by RD Comments: 1) Add cardiac restriction to diet 2) Initiate Glucerna qd d/t decreased appetite. Encourage optimal hydration 3) Refer to outpatient RD for weight management 4) F/u with cardiology 5) Continue to monitor, labs, and skin integrity Expected Outcomes/Goals: 1) appetite and labs to improve 2) f/u in 2-3 days Addendum Addendum Addendum I was physically present for the jeffers portions of the service provided to patient by THE RESIDENT. I have reviewed the documentation, discussed the case with resident and agree with the resident's documentation except as noted. Also the patient's clinical case was discussed with the patient's nurse. This medical document was created using an electronic medical record system with computerized dictation system. Although this document has been carefully reviewed, there might still be some phonetic and typographical errors. These areas are purely typographical due to imperfections of the software programs, and do not reflect any compromise in the patient's medical care. Late signature. Date of Service: Jul 07, 2024 Billing Provider: MANDY AMBROSE MD Common Visit Codes: 83084-[id number] INP/OBS CARE(HIGH) TAWANA CALLEJAS RESIDENT Jul 07, 2024 15:26 MANDY AMBROSE MD Jul 08, 2024 06:40
[2024-07-07] MEDS: DOCUSATE SOD 100 MG CAP PO PRN (18:34)
[2024-07-07] MEDS: POLYETHYLENE GLYCOL 17 GM PWDR PO PRN (18:34)
--- NOTE | 2024-07-07 20:51 | DVHPN2 ---
Progress Note - Dictate Date Seen: Jul 07, 2024 Has the PT tested + for MRSA If YES, has PT been informed?: No Medical Necessity Reason Pt with a Central, PICC or Fol: No Subjective Patient was seen and evaluated in follow up. No acute events. Patient underwent Cor Angio with left heart catheterization which was negative for significant coronary artery disease. No new complaints. Na improved to 135. vital signs Vital Sign Date Time Temp Pulse Resp B/P (MAP) Pulse Ox O2 Delivery O2 Flow Rate FiO2 07/07/24 17:30 98.3 76 18 155/52 (86) 94 98.3 07/07/24 08:19 Room Air* 0 21 Total Intake and Output 07/06/24 07/06/24 07/07/24 15:00 23:00 07:00 Intake Total 1300 ml 1140 ml Output Total 1200 ml 2200 ml Balance 100 ml -1060 ml medications Current Medications Medications Dose Ordered Sig/Ashish Route Start Time Stop Time Status Last Admin Dose Admin Acetaminophen 650 mg Q6HP PRN PO 07/01/24 22:00 07/03/24 19:47 650 MG Ondansetron HCl 4 mg Q4HP PRN IV 07/01/24 22:00 07/07/24 15:17 4 MG Enoxaparin Sodium 40 mg DAILY SC 07/02/24 10:00 Hold 07/03/24 09:50 40 MG Ceftriaxone Sodium 50 ml @ 100 mls/hr DAILY@2100 IV 07/02/24 21:00 07/06/24 21:43 100 MLS/HR Ascorbic Acid 500 mg DAILY PO 07/02/24 10:00 07/07/24 15:17 500 MG Calcium Acetate 667 mg DAILY PO 07/02/24 10:00 07/07/24 15:17 667 MG Pantoprazole Sodium 40 mg DAILY PO 07/02/24 10:00 07/07/24 15:45 40 MG Baclofen 10 mg BID PO 07/02/24 10:00 07/06/24 21:45 10 MG Gabapentin 600 mg BID PO 07/02/24 10:00 07/06/24 21:45 600 MG Atorvastatin Calcium 10 mg HS PO 07/02/24 22:00 07/06/24 21:44 10 MG Venlafaxine HCl 75 mg BID PO 07/02/24 10:00 07/06/24 21:45 75 MG Amlodipine Besylate 5 mg DAILY PO 07/02/24 10:00 07/07/24 15:17 5 MG Hydralazine HCl 10 mg Q6HP PRN IV 07/02/24 01:30 07/02/24 02:15 10 MG Acetaminophen/ Hydrocodone Bitart 1 tab Q6HP PRN PO 07/02/24 04:45 07/07/24 15:21 1 TAB Losartan Potassium 50 mg BID PO 07/02/24 10:00 07/06/24 21:46 50 MG Melatonin 5 mg HS PO 07/02/24 22:00 07/06/24 21:45 5 MG Triamcinolone Acetonide 1 applic DAILY TOP 07/03/24 10:00 07/07/24 14:00 1 APPLIC Metoprolol Tartrate 12.5 mg DAILY PO 07/04/24 10:00 07/07/24 14:00 12.5 MG Polyethylene Glycol 17 gm DAILYPRN PRN PO 07/07/24 16:45 07/07/24 18:34 17 GM Docusate Sodium 100 mg BIDPRN PRN PO 07/07/24 16:45 07/07/24 18:34 100 MG objective Vitals and nursing notes reviewed. General Appearance: Alert, Oriented X3, Cooperative HEENT: Atraumatic, PERRLA, EOMI, Mucous membrane moist/pink Respiratory: Clear to auscultation, Normal air movement Cardiovascular: Regular rate, Normal S1, Normal S2, No murmurs, no chest wall tenderness Abdominal: No distention, no tenderness, bowel sounds present, no scars noted Extremities: Disproportionate upper extremities Neuro: Normal gait, Normal speech, Strength at 5/5 X4 ext, Normal tone, Sensation intact, Cranial nerves 3-12 NL, Reflexes 2+ Psych/Mental Status: Mental status NL, Mood NL Skin: No rashes, No breakdown, No significant lesion laboratory and microbiology Laboratory Tests 07/07/24 08:28 07/07/24 06:20 Test 07/07/24 08:28 Range/Units Serum Glucose 95 74-106 mg/dL Problem List Urinary tract infection General weakness Hyponatremia Pancytopenia Hypertension Hyperlipidemia Rheumatoid arthritis Obesity Overflow incontinence Chronic pain Assessment/Plan Agree with current supportive medical care. Embolization of the renal mass recommended per Dr. Amezquita. Procedure now to be done as outpatient. PT as recommended. Monitor daily labs; electrolyte replacement prn. IV antibiotics with Ceftriaxone. Continue home medications as ordered. GI/DVT prophylaxis. Additional plan as per the hospital course. Dietary Evaluation Review Recommendations by RD: Dietary education by RD Comments: 1) Add cardiac restriction to diet 2) Initiate Glucerna qd d/t decreased appetite. Encourage optimal hydration 3) Refer to outpatient RD for weight management 4) F/u with cardiology 5) Continue to monitor, labs, and skin integrity Expected Outcomes/Goals: 1) appetite and labs to improve 2) f/u in 2-3 days Plan discussed with: Patient, Other (RN) RO MCGEE DO Jul 07, 2024 20:51
[2024-07-08 01:00] VITALS: BP 143/31; PULSE 80; RESP 20; TEMP 98; O2SAT 95
[2024-07-08 05:00] VITALS: BP 167/47; PULSE 77; RESP 18; TEMP 97.5; O2SAT 97
[2024-07-08 05:59] LABS: Basophils # (auto) 0 10 ^3/uL (0-0.2); Basophils % (auto) 0.6 % (0.0-2.0); Eosinophils # (auto) 0.2 10 ^3/uL (0-0.8); Eosinophils % (auto) 3.8 % (0.0-7.0); Hematocrit 32.1 % (36.0-46.0); Hemoglobin 11.1 g/dL (12.2-16.2); Lymphocytes # (auto) 1.2 10 ^3/uL (0.4-5.4); Lymphocytes % (auto) 28.6 % (10.0-50.0); Mean Corpuscular Hemoglobin 35.6 pg (28.0-32.0); Mean Corpuscular Hgb Conc. 34.6 g/dL (32.0-36.0); Mean Corpuscular Volume 102.8 fL (80.0-100.0); Monocytes # (auto) 0.6 10 ^3/uL (0-1.3); Monocytes % (auto) 14.7 % (0.0-12.0); Neutrophils # (auto) 2.2 10 ^3/uL (1.6-8.6); Neutrophils % (auto) 52.3 % (37.0-80.0); Nucleated Red Blood Cells % 0.1 %; Platelet Count (auto) 136 10^3/uL (140-450); Red Blood Cells 3.12 10^6/uL (4.0-5.20); Red Cell Distribution Width 13.9 % (11.8-14.3); White Blood Cell 4.1 10^3/uL (4.4-10.8)
[2024-07-08 06:13] LABS: Alanine Aminotransferase 25 U/L (7-40); Albumin 3.7 g/dL (3.2-4.8); Alkaline Phosphatase 97 U/L (46-116); Anion Gap 7 (5-15); Carbon Dioxide 27 mmol/L (20-31); Glucose 86 mg/dL (74-106); Total Protein 6.8 g/dL (5.7-8.2)
[2024-07-08 06:14] LABS: Bilirubin, Total 0.5 mg/dL (0.2-1.0)
[2024-07-08 06:18] LABS: Aspartate Aminotransferase 41 U/L (13-40); BUN/Creatinine Ratio 7.8 (10.0-20.0); Blood Urea Nitrogen < 5 mg/dL (9-23); Chloride 95 mmol/L (98-107); Potassium 3.4 mmol/L (3.5-5.1); Sodium 129 mmol/L (136-145)
[2024-07-08] MEDS ORDERED: POTASSIUM CHLORIDE 40 MEQ, LIDOCAINE 1% (LOCAL ANESTH.) 4 ML in SODIUM CHL 0.9% 250 ML IV ONE (07:15)
[2024-07-08 08:00] VITALS: PULSE 87
[2024-07-08 08:32] VITALS: BP 153/64; PULSE 79; RESP 16; TEMP 97.9; O2SAT 91
[2024-07-08] MEDS: POTASSIUM EFFERVESENT TAB 25 MEQ PO ONE (09:33)
[2024-07-08] MEDS ORDERED: CIPR-173 PO (10:09)
[2024-07-08] MEDS ORDERED: AML5T PO (10:09)
--- NOTE | 2024-07-08 10:32 | DVHDSRES ---
Discharge Summary Date of Admission Resident Creating Document: TAWANA CALLEJAS RESIDENT Jul 01, 2024 at 21:55 Date of Discharge: Jul 08, 2024 Admitting Diagnosis Generalized weakness Labs/Diagnostic Data: Laboratory Results Test 07/08/24 04:27 07/05/24 07:23 07/04/24 05:25 07/02/24 05:04 White Blood Count 4.1 10^3/uL (4.4-10.8) Red Blood Count 3.12 10^6/uL (4.0-5.20) Hemoglobin 11.1 g/dL (12.2-16.2) Hematocrit 32.1 % (36.0-46.0) Mean Corpuscular Volume 102.8 fL (80.0-100.0) Mean Corpuscular Hemoglobin 35.6 pg (28.0-32.0) Mean Corpuscular Hemoglobin Concent 34.6 g/dL (32.0-36.0) Red Cell Distribution Width 13.9 % (11.8-14.3) Platelet Count 136 10^3/uL (140-450) Mean Platelet Volume 7.7 fL (6.9-10.8) Neutrophils (%) (Auto) 52.3 % (37.0-80.0) Lymphocytes (%) (Auto) 28.6 % (10.0-50.0) Monocytes (%) (Auto) 14.7 % (0.0-12.0) Eosinophils (%) (Auto) 3.8 % (0.0-7.0) Basophils (%) (Auto) 0.6 % (0.0-2.0) Neutrophils # (Auto) 2.2 10 ^3/uL (1.6-8.6) Lymphocytes # (Auto) 1.2 10 ^3/uL (0.4-5.4) Monocytes # (Auto) 0.6 10 ^3/uL (0-1.3) Eosinophils # (Auto) 0.2 10 ^3/uL (0-0.8) Basophils # (Auto) 0 10 ^3/uL (0-0.2) Nucleated Red Blood Cells 0.1 % Sodium Level 129 mmol/L (136-145) Potassium Level 3.4 mmol/L (3.5-5.1) Chloride Level 95 mmol/L (98-107) Carbon Dioxide Level 27 mmol/L (20-31) Anion Gap 7 (5-15) Blood Urea Nitrogen < 5 mg/dL (9-23) Creatinine 0.64 mg/dL (0.550-1.02) Glomerular Filtration Rate Calc 97 mL/min (>90) BUN/Creatinine Ratio 7.8 (10.0-20.0) Serum Glucose 86 mg/dL (74-106) Calcium Level 9.0 mg/dL (8.7-10.4) Total Bilirubin 0.5 mg/dL (0.2-1.0) Aspartate Amino Transferase (AST) 41 U/L (13-40) Alanine Aminotransferase (ALT) 25 U/L (7-40) Alkaline Phosphatase 97 U/L (46-116) Total Protein 6.8 g/dL (5.7-8.2) Albumin 3.7 g/dL (3.2-4.8) Magnesium Level 1.7 mg/dL (1.6-2.6) Iron Level 64 ug/dL (50-170) Total Iron Binding Capacity 193 ug/dL (250-425) Percent Iron Saturation 33.2 % (15-50) Erythrocyte Sedimentation Rate 15 mm/hr (0-20) Prothrombin Time 11.4 sec (9.3-11.8) Prothrombin Time INR 1.08 (0.9-1.15) Activated Partial Thromboplast Time 27.4 SEC (24.5-34.5) Uric Acid 3.7 mg/dL (3.1-7.8) C-Reactive Protein High Sensitivity 0.34 mg/dL (<1.0) Rheumatoid Factor 12.8 IU/mL (<14.0) Test 07/01/24 22:25 07/01/24 18:10 07/01/24 17:18 07/01/24 12:40 Hemoglobin A1c 4.6 % A1C (<5.7) Triglycerides Level 58 mg/dL (< 150) Cholesterol Level 134 mg/dL (< 200) LDL Cholesterol 33 mg/dL (< 100) HDL Cholesterol 86 mg/dL (40-59) Vitamin B12 Level 912 pg/mL (211-911) Vitamin D 25-Hydroxy 38.2 ng/mL (30.0-100) Thyroid Stimulating Hormone (TSH) 1.19 uIU/mL (0.55-4.78) Urine Color Light-yellow (Yellow) Urine Clarity Clear (Clear) Urine pH 7.5 (5.0-9.0) Urine Specific [place] 1.009 (1.001-1.035) Urine Protein Negative (Negative) Urine Ketones Negative (Negative) Urine Blood Trace /uL (Negative) Urine Nitrite Negative (Negative) Urine Bilirubin Negative (Negative) Urine Urobilinogen Normal mg/dL (Negative) Urine Leukocyte Esterase 3+ /uL (Negative) Urine RBC 3 /hpf (0 - 4) Urine Microscopic WBC 13 /HPF (0-5) Urine Squamous Epithelial Cells Few /hpf (<5) Urine Bacteria Few /hpf (None Seen) Urine Yeast (Budding) Occasional /hpf (None Urine Glucose Normal mg/dL (Normal) Urine Opiates Screen Neg (NEGATIVE) Urine Fentanyl Screen Neg (NEGATIVE) Urine Barbiturates Screen Neg (NEGATIVE) Urine Phencyclidine Screen Neg (NEGATIVE) Urine Amphetamines Screen Neg (NEGATIVE) Urine Benzodiazepines Screen Neg (NEGATIVE) Urine Cocaine Screen Neg (NEGATIVE) Urine Cannabinoids Screen Neg (NEGATIVE) POC Glucose 110 mg/dl (70-106) Troponin I High Sensitivity 9 ng/L (</=34) Other Laboratory Tests 07/08/24 04:27 Brief Hx & Hospital Course: Patient is a 64-year-old female visiting to the ED with 1 day history of generalized weakness. According to the patient she woke up at night around 1:00 a.m. went to use the bathroom and she felt really weak unable to walk back to the bed. Patient said she felt really weak and thought completely unwell also with an associated headache she measured her blood pressure and it was extremely elevated at 191/97. Thus, prompting the visit to the today. She denies any nausea vomiting chest pain or shortness of breadth. Initial labs revealed pancytopenia, UTI and a 12 lead EKG revealed left bundle branch block. Chest x- ray was grossly unremarkable and CT of the head revealed did not show any acute intracranial abnormality, there is mild chronic microvascular ischemic changes. Past medical history: Hypertension, hyperlipidemia, pinched nerve, rheumatoid arthritis, fibromyalgia Past surgical history: Multiple surgeries on her wrist bilaterally Medication includes losartan, [place], gabapentin, amlodipine, pantoprazole, baclofen, simvastatin, amitriptyline venlafaxine and multivitamins In this hospital admission, complicated UTI was found which need IV AB, also a CT scan abdomen was done showing Heterogeneous fat containing mass in the lower pole of the right kidney measures 4.2 cm. Differential considerations could include renal angiomyolipoma or fat containing renal cell carcinoma. Cardiology was consulted for echo findings of mild anteroapical hypokinesis and an episode of nonsustained V-tach.Stress test: Nuclear Findings: positive for ischemia, lvef 68%, markedly abnormal stress entire myocardium on stress imaging has decreased counts, this raises the suspicion of image artifact and poor quality study however this could be multivessel CAD. She underwent to [facility] that showed normal coronary arteries IR was also consulted and they stated that the patient will benefit on embolization of renal mass more than biopsy as outpatient. Patient is DC home with oral AB due to UTI and also hypertension management was optimized. Patient will f/u DC clinic Physical examination on the day of discharge: General Appearance: Alert, Oriented X3, Cooperative HEENT: Atraumatic, PERRLA, EOMI, Mucous membrane moist/pink Respiratory: Clear to auscultation, Normal air movement Cardiovascular: Regular rate, Normal S1, Normal S2, No murmurs, no chest wall tenderness Abdominal: NO distention, no tenderness, bowel sounds present, no scars noted Extremities: Excessive skin folds in upper arms Skin: No rashes, No breakdown, No significant lesion Neuro: Normal gait, Normal speech, Strength at 5/5 X4 ext, Normal tone, Sensation intact, Cranial nerves 3-12 NL, Reflexes 2+ Psych/Mental Status: Mental status NL, Mood NL Case discussed with Dr. Ambrose Consults/Reason for consult cardiology due to abnormal echo and NSVT // IR due to renal mass Operations or Procedures APPROVED REPORT Exam: Nuclear Stress Test BMI: 0 Stress Test Details HR Max Heart Rate (APMHR): 154.074760 bpm Target HR (85% APMHR): 130.512009 bpm BP ECG Stress ECG Conclusion lvef 68% markedly abnormal stress entire myocardium on stress imaging has decreased counts, this raises the suspicioin of image artifact and poor quality study however this could be multivessel cad further imaging with coronary CTA or cardiac cath is warranted NM EXAM: Myocardial Perfusion REST/STRESS Imaging Protocol: Rest Tc-99m/Stress Tc-99m 1 day Resting Data Rest SPECT myocardial perfusion imaging was performed in supine position 60 minutes following the intravenous injection of 14 mCi of Tc-99m Sestamibi. Time of rest injection: 0810 Time of rest imagin Administration Route: IV Administration Site: Left Arm Pharmacologic Stress Pharmacologic stress test was performed by injecting Regadenoson 0.4 mg IV push followed by the intravenous injection of 31 mCi of Tc-99m Sestamibi. Time of stress injection: 1005 Time of stress imagin Administration Route: IV Administration Site: Left Arm Gated Stress SPECT was performed 60 minutes after stress injection. The images were gated to evaluate regional wall motion and calculate left ventricular ejection fraction. Stress only was performed in the Supine position. Nuclear Conclusion Nuclear Findings: positive for ischemia lvef 68% markedly abnormal stress entire myocardium on stress imaging has decreased counts, this raises the suspicioin of image artifact and poor quality study however this could be multivessel cad further imaging with coronary CTA or cardiac cath is warranted Exam: CT CT AB PEL WO CON-NO ORAL OR IV History: RENAL MASS Comparison Study: [facility] on DOS: 04/15/22 Technique: Multidetector spiral CT of the abdomen was performed from lung bases to pubic symphysis. Imaging was performed without IV contrast. Axial, coronal and sagittal multiplanar reformats were obtained from the axial data set by the technologist. Radiation Dose : 1. Abdomen/Pelvis: CTDIvol 33.1 mGy, DLP 1686.04 mGy*cm. Findings: Evaluation of solid organs is limited due to lack of intravenous contrast use. Lung Bases: Cardiomegaly. Coronary artery calcifications. Vascular calcifications of the aorta. Dependent atelectasis. Liver: Hepatic cirrhosis. Gallbladder and Biliary Tree: Cholelithiasis noted without secondary findings of cholecystitis or biliary obstruction. Spleen: Unremarkable Pancreas: The pancreas is grossly normal in appearance. Adrenal Glands: Unremarkable Kidneys: No hydronephrosis. Left kidney is unremarkable. Heterogeneous fat containing mass in the lower pole of the right kidney measures 4.2 cm. Bladder: Bladder is decompressed with a [place] catheter and cannot be adequately assessed. Bowel: The stomach is grossly normal in appearance. Small bowel and colon are normal in caliber and distribution. The appendix is not visualized; however, no secondary findings of acute appendicitis identified. Ascites: Absent Lymphadenopathy: No mesenteric, retroperitoneal or periportal lymphadenopathy. Abdominal Wall and Mesentery: Unremarkable. Vasculature: The visualized abdominal aorta is normal in size and caliber. There is extensive atherosclerotic calcification of the aorta and its branches. Evaluation of abdominal and pelvic vessels is limited due to lack of intravenous contrast. Pelvic Organs: Unremarkable Musculoskeletal: No aggressive focal bony lesions, acute fractures or dislocation. Degenerative changes of the spine. IMPRESSION: Heterogeneous fat containing mass in the lower pole of the right kidney measures 4.2 cm. Differential considerations could include renal angiomyolipoma or fat containing renal cell carcinoma. Radiation optimization: All CT scans at this facility use at least one of these dose optimization techniques: automated exposure control mA and/or kV adjustment per patient size (includes targeted exams where dose is matched to clinical indication) or iterative reconstruction. Condition at Discharge: Stable Final Diagnosis/Problems List #Complicated Urinary tract infection: E coli susceptible to ceftriaxone #General weakness, acute stroke ruled out #Pancytopenia #Hypertension #Hyperlipidemia #Rheumatoid arthritis? #Fibromyalgia? #Obesity #Overflow incontinence #Chronic pain #Heterogeneous fat containing mass in the lower pole of the right kidney measures 4.2 cm. #renal angiomyolipoma? #NSVT #Mild cardiac anteroapical hypokinesis. #Mild pancytopenia #Hyponatremia: chronic Discharge Disposition: Home Discharge Instruct/Medications Diet: Consistent carbohydrate, Cardiac 2g Na,low cholest Activity: No Restrictions, As Tolerated Follow Up/Referral: Primary care provider within one week; discharge clinic within one week; interventional Radiology within 2 to 4 weeks (patient was provided with a copy of abdomen/pelvis CT that showed the renal mass) Medications: As per EMR Discharge Statement: "Patient was advised to return to the ER or call 911 if any headaches, dizziness, shortness of breath, chest pain, abdominal pain, bleeding, fevers, or worsening of medical condition. Patient was counseled about treatment plan, medications, possible side effects, patientverbalized understanding. All questions were answered to the best of my ability. This discharge took greater then 30 minutes in planning, reviewing documentation, counseling the patient, and discussing with other team members." ASSESSMENT ASSESSMENT Assessment Addendum Addendum Addendum I was physically present for the jeffers portions of the service provided to patient by THE RESIDENT. I have reviewed the documentation, discussed the case with resident and agree with the resident's documentation except as noted. Also the patient's clinical case was discussed with the patient's nurse. This medical document was created using an electronic medical record system with computerized dictation system. Although this document has been carefully reviewed, there might still be some phonetic and typographical errors. These areas are purely typographical due to imperfections of the software programs, and do not reflect any compromise in the patient's medical care. Late signature. Date of Service: Jul 08, 2024 Billing Provider: MANDY AMBROSE MD Common Visit Codes: 89616-QEY/OBS DISCH DAY >30min TAWANA CALLEJAS Jul 08, 2024 10:32 MANDY AMBROSE MD Jul 09, 2024 10:33
[2024-07-08 11:35] VITALS: BP 153/64; PULSE 79; RESP 18; TEMP 97.8; O2SAT 96
[2024-07-08 12:29] VITALS: BP 107/37; PULSE 74; RESP 16; TEMP 98.1; O2SAT 93
--- NOTE | 2024-07-08 20:37 | DVHPN2 ---
Progress Note - Dictate Date Seen: Jul 08, 2024 Has the PT tested + for MRSA If YES, has PT been informed?: No Medical Necessity Reason Pt with a Central, PICC or Fol: No Subjective Patient was seen and evaluated in follow up. No acute events overnight. Patient denies any new complaints. Na 129. K 3.4. vital signs Vital Sign Date Time Temp Pulse Resp B/P (MAP) Pulse Ox O2 Delivery O2 Flow Rate FiO2 07/08/24 12:29 98.1 74 16 107/37 (60) 93 98.1 07/08/24 08:00 Room Air* 0 21 Total Intake and Output 07/07/24 07/07/24 07/08/24 15:00 23:00 07:00 Intake Total 1250 ml 1620 ml Output Total 800 ml 850 ml Balance 450 ml 770 ml objective Vitals and nursing notes reviewed. General Appearance: Alert, Oriented X3, Cooperative HEENT: Atraumatic, PERRLA, EOMI, Mucous membrane moist/pink Respiratory: Clear to auscultation, Normal air movement Cardiovascular: Regular rate, Normal S1, Normal S2, No murmurs, no chest wall tenderness Abdominal: No distention, no tenderness, bowel sounds present, no scars noted Extremities: Disproportionate upper extremities Neuro: Normal gait, Normal speech, Strength at 5/5 X4 ext, Normal tone, Sensation intact, Cranial nerves 3-12 NL, Reflexes 2+ Psych/Mental Status: Mental status NL, Mood NL Skin: No rashes, No breakdown, No significant lesion laboratory and microbiology Laboratory Tests 07/08/24 04:27 Test 07/08/24 04:27 Range/Units Serum Glucose 86 74-106 mg/dL Problem List Urinary tract infection General weakness Hyponatremia Pancytopenia Hypertension Hyperlipidemia Rheumatoid arthritis Obesity Overflow incontinence Chronic pain Assessment/Plan DC planning in progress. Urine Osmolality, urine sodium and UA ordered/pending. Potassium replacement. Cleared for discharge from Nephrology standpoint with outpatient follow up recommended. Dietary Evaluation Review Recommendations by RD: Dietary education by RD Comments: 1) Add cardiac restriction to diet 2) Initiate Glucerna qd d/t decreased appetite. Encourage optimal hydration 3) Refer to outpatient RD for weight management 4) F/u with cardiology 5) Continue to monitor, labs, and skin integrity Expected Outcomes/Goals: 1) appetite and labs to improve 2) f/u in 2-3 days Plan discussed with: Patient, Other (RN) RO MCGEE DO Jul 08, 2024 20:37
== END 2024-07-08 16:39 | disposition home or self-care (01) | DRG 690 ==
LOC: ER 11:44 → EDUNIT# 11:44 → EDBD 11:44 → OVERFLOW 21:55 → TELE-WESTW 07-02 01:42
PROVIDERS: ADMIT Internal Medicine; ATTEND Internal Medicine
PROC: B211YZZ Fluoroscopy of Multiple Coronary Arteries using Other Contrast (ICD-10-PCS; principal; 2024-07-07)
PROC: B215YZZ Fluoroscopy of Left Heart using Other Contrast (ICD-10-PCS; 2024-07-07)
DX: N39.0 Urinary tract infection, site not specified (principal); D61.818 Other pancytopenia; E87.1 Hypo-osmolality and hyponatremia; I47.20 Ventricular tachycardia, unspecified; R65.10 Systemic inflammatory response syndrome (SIRS) of non-infectious origin without acute organ dysfunction; D17.71 Benign lipomatous neoplasm of kidney; M06.9 Rheumatoid arthritis, unspecified; N39.490 Overflow incontinence; I10 Essential (primary) hypertension; G90.89 Other disorders of autonomic nervous system; E78.5 Hyperlipidemia, unspecified; G89.29 Other chronic pain; I16.0 Hypertensive urgency; E66.01 Morbid (severe) obesity due to excess calories; I44.7 Left bundle-branch block, unspecified; B96.20 Unspecified Escherichia coli [E. coli] as the cause of diseases classified elsewhere; M79.7 Fibromyalgia; M81.0 Age-related osteoporosis without current pathological fracture; N28.89 Other specified disorders of kidney and ureter; Z91.040 Latex allergy status; Z79.891 Long term (current) use of opiate analgesic; Z79.899 Other long term (current) drug therapy; Z88.5 Allergy status to narcotic agent; Z83.3 Family history of diabetes mellitus; Z68.37 Body mass index [BMI] 37.0-37.9, adult
CPT/HCPCS: 36415; 70450; 71045; 74176; 76775; 76881; 78452; 80048; 80053; 80061; 80307; 81001; 82306; 82607; 82962; 83036; 83540; 83550; 83735; 84443; 84484; 84550; 85025; 85610; 85652; 85730; 86141; 86431; 87040; 87086; 87088; 87186; 93005; 93017; 93306; 93454; 93970; 97110; 97116; 97163; 97530; 99152; G0378; J2003; J2250; J2405; Q9967

== ENCOUNTER 2024-08-24 09:32 | Emergency (ER) | payer OTHER, MEDICAID ==
[~2024-08-24] VITALS: Ht 160 cm; Wt 90.6 kg
[~2024-08-24 09:32] MED LIST changes: +AML5T PO; +CIPR-173 PO
--- NOTE | 2024-08-24 10:07 | ED.PDOC ---
History of Present Illness HPI Comments 64-year-old female presents with a chief complaint of facial swelling and bruising s/p fall x 1 week ago. Patient states that she fell at home x 1 week ago and started antibiotics for a diagnosis of pneumonia x 2 weeks ago. Patient mentions that since falling and starting the medication her face has been swe lling. Patient also easily bruises, but denies use of blood thinners. Chief Complaint: Fall Injury Time Seen by MD: 09:38 Primary Care Provider: unknown Reviewed Notes: Medications, Allergies Allergies: Coded Allergies: Latex (Verified Allergy, Unknown, 04/16/22) Morphine (Verified Allergy, Unknown, 07/02/24) Home Meds Active Scripts Ciprofloxacin Hcl (Cipro) 500 Mg Tab, 500 MG PO BID for 7 Days, #14 TAB Prov:TAWANA CALLEJAS RESIDENT 07/08/24 Amlodipine Besylate (NORVASC TABLET) 5 Mg Tb, 5 MG PO DAILY for 30 Days, #30 TAB Prov:TAWANA CALLEJAS RESIDENT 07/08/24 Hydrocodone-Acetaminophen (Hydrocodone Bitartrate/AC 5-325 mg) 1 Tab Tab, 1 TAB PO Q6HP PRN, #14 TAB Prov:VINICIO MOORE MD 04/17/22 Reported Medications Venlafaxine Hydrochloride (Venlafaxine Hcl) 75 Mg Tab, 75 MG PO BID, TAB 05/31/22 Calcium Acetate (PHOSLO CAPSULE) 667 Mg Cp, 667 MG PO, CAP 05/31/22 Ascorbic Acid (VITAMIN C TABLET) 500 Mg Tb, 500 MG PO DAILY, TAB 05/31/22 Cholecalciferol (D3) Unknown Strength Tab, PO, TAB 05/31/22 Benazepril Hcl (Benazepril Hcl) 20 Mg Tab, 20 MG PO DAILY, TAB 05/31/22 Pantoprazole Sodium Sesquihydr (Protonix) 40 Mg Tab, 40 MG PO DAILY, #30 TAB 05/31/22 Simvastatin (Simvastatin) 20 Mg Tab, 20 MG PO QPM, TAB 05/31/22 Baclofen (Baclofen) 20 Mg Tab, 10 MG PO BID, TAB 05/31/22 Gabapentin (Gabapentin) 600 Mg Tab, 600 MG PO BID, TAB 05/31/22 Information Source: Patient Mode of Arrival: Wheelchair Severity: Moderate Timing: Days Duration: Since onset Prehospital treatment: None Past Medical History PAST MEDICAL HISTORY: HTN Surgical History: Denies all surgeries RETIREMENT MANAGER History: Denies all RETIREMENT MANAGER Hx, Unknown Family History Family History: Unknown Social History Smoker: Non-Smoker Alcohol: Denies ETOH Use Drugs: Denies Drug Use Lives In: Home Constitutional: denies: chills, diaphoresis, fatigue, fever, malaise, sweats, weakness, others EENTM: reports: others (FACIAL SWELLING); denies: blurred vision, double vision, ear bleeding, ear discharge, ear drainage, ear pain, ear ringing, eye pain, eye redness, hearing loss, mouth pain, mouth swelling, nasal discharge, nose bleeding, nose congestion, nose pain, photophobia, tearing, throat pain, throat swelling, voice changes Respiratory: denies: cough, hemoptysis, orthopnea, SOB at rest, shortness of breath, SOB with excertion, stridor, wheezing, others Cardiovascular: denies: chest pain, dizzy spells, diaphoresis, Dyspnea on exertion, edema, irregular heart beat, left arm pain, lightheadedness, palpitations, PND, syncope, others Gastrointestinal: denies: abdomen distended, abdominal pain, blood streaked bowels, constipated, diarrhea, dysphagia, difficulty swallowing, hematemesis, melena, nausea, poor appetite, poor fluid intake, rectal bleeding, rectal pain, vomiting, others Genitourinary: denies: abnormal vagina bleeding, burning, dyspareunia, dysuria, flank pain, frequency, hematuria, incontinence, pain, , vagina discharge, urgency, others Neurological: denies: dizziness, fainting, headache, left sided numbness, left sided weakness, numbness, paresthesia, pre-existing deficit, right sided numbness, right sided weakness, seizure, speech problems, tingling, tremors, weakness, others Musculoskeletal: denies: back pain, gout, joint pain, joint swelling, muscle pain, muscle stiffness, neck pain, others Integumetry: reports: bruises; denies: change in color, change in hair/nails, dryness, laceration, lesions, lumps, rash, wounds, others Allergic/Immunocompromised: denies: Difficulty Healing, Frequent Infections, Hives, Itching, others Hematologic/Lymphatic: denies: anemia, blood clots, easy bleeding, easy bruising, swollen glands, others Endocrine: denies: excessive hunger, excessive sweating, excessive thirst, excessive urination, flushing, intolerance to cold, intolerance to heat, unexplained weight gain, unexplained weight loss, others Psychiatric: denies: anxiety, bipolar disorder, depression, hopeless, panic disorder, schizophrenia, sleepless, suicidal, others All Other Systems: Reviewed and Negative Physical Exam General Appearance: Moderate Distress, Normal HEENT: Normal ENT Inspection, Pharynx Normal, TMs Normal Neck: Full Range of Motion, Non-Tender, Normal, Normal Inspection Respiratory: Chest Non-Tender, Lungs Clear, No Accessory Muscle Use, No Respiratory Distress, Normal Breath Sounds Cardiovascular: No Edema, No JVD, No Murmur, No Gallop, Normal Peripheral Pulses, Regular Rate/Rhythm Breast Exam: Deferred Gastrointestinal: No Organomegaly, Non Tender, No Pulsatile Mass, Normal Bowel Sounds, Soft Genitalia: Deferred Pelvic: Deferred Rectal: Deferred Extremities: No calf tenderness, Normal capillary refill, No pedal edema Musculoskeletal : Apperance: Normal Neurologic: Alert, health administration teacher II-XII nml as Tested, No Motor Deficits, Normal Affect, Normal Mood, No Sensory Deficits Cerebellar Function: NOT DONE Reflexes: NOT DONE Skin: Bruises (Left arm left side of her mandible), Dry, Normal Color, Warm Peripheral Pulses: 3+ Radial (R), 3+ Radial (L) Lymphatic: No Adenopathy Was a procedure done? Was a procedure done?: No Differential Dx Considerations may include: Anemia Electrolyte imbalance X-Ray, Labs, Meds, VS Vital Signs Date Time Temp Pulse Resp B/P (MAP) Pulse Ox O2 Delivery O2 Flow Rate FiO2 08/24/24 10:36 97.7 96 18 174/68 (103) 98 97.7 08/24/24 09:48 97.9 94 19 154/70 (98) 99 97.9 Lab Test 08/24/24 10:21 Range/Units White Blood Count 6.3 4.4-10.8 10^3/uL Red Blood Count 3.22 L 4.0-5.20 10^6/uL Hemoglobin 11.4 L 12.2-16.2 g/dL Hematocrit 32.7 L 36.0-46.0 % Mean Corpuscular Volume 101.7 H 80.0-100.0 fL Mean Corpuscular Hemoglobin 35.4 H 28.0-32.0 pg Mean Corpuscular Hemoglobin Concent 34.8 32.0-36.0 g/dL Red Cell Distribution Width 15.8 H 11.8-14.3 % Platelet Count 151 140-450 10^3/uL Mean Platelet Volume 7.1 6.9-10.8 fL Neutrophils (%) (Auto) 70.8 37.0-80.0 % Lymphocytes (%) (Auto) 20.1 10.0-50.0 % Monocytes (%) (Auto) 8.2 0.0-12.0 % Eosinophils (%) (Auto) 0.5 0.0-7.0 % Basophils (%) (Auto) 0.4 0.0-2.0 % Neutrophils # (Auto) 4.4 1.6-8.6 10 ^3/uL Lymphocytes # (Auto) 1.3 0.4-5.4 10 ^3/uL Monocytes # (Auto) 0.5 0-1.3 10 ^3/uL Eosinophils # (Auto) 0 0-0.8 10 ^3/uL Basophils # (Auto) 0 0-0.2 10 ^3/uL Nucleated Red Blood Cells 0.1 % Sodium Level 132 L 136-145 mmol/L Potassium Level 4.0 3.5-5.1 mmol/L Chloride Level 98 98-107 mmol/L Carbon Dioxide Level 26 20-31 mmol/L Anion Gap 8 5-15 Blood Urea Nitrogen 13 9-23 mg/dL Creatinine 0.79 0.550-1.02 mg/dL Glomerular Filtration Rate Calc 82 >90 mL/min BUN/Creatinine Ratio 16.5 10.0-20.0 Serum Glucose 90 74-106 mg/dL Calcium Level 9.7 8.7-10.4 mg/dL Troponin I High Sensitivity 31 </=34 ng/L Patient alert. Status post fall. Vitals stable. Answering questions. WBC within normal limits. Blood pressure slightly high. She is taking her medication. Reviewed her history. She was recently at urgent care. She is currently on antibiotics for possible pneumonia. Chest x-ray reviewed does not show any acute process. CT of the head reviewed does not show any acute process. No sign of any injury. Explained to the patient that there is no injuries along with the patient of the labs. Was told to follow up with her primary care physician. Was told to come back if there is any problem. Time of 1ST Reevaluation: 10:12 (EXPLAINED TO THE PATIENT THAT THEY MAY BE STAYING WITH US IN THE HOSPITAL, BUT IF STABLE FOR DISCHARGE, THEY WILL BE NOTIFIED AND SENT HOME. ) Reevaluation 1ST: Unchanged Patient Education/Counseling: Diagnosis, Treatment Family Education/Counseling: Diagnosis, Treatment Departure 1 Departure Time of Disposition: 10:59 Impression: Primary Impression: Head injury Qualified Codes: S09.90XA - Unspecified injury of head, initial encounter Additional Impression: Autonomic disorder Disposition: 01 HOME / SELF CARE / HOMELESS Condition: Good Discharged With: Self Critical Care Note Critical Care Time?: No Stability Stability form required: No Heart Score Heart Score: Heart Score Response (Comments) Value History N/A 0 EKG N/A 0 Age N/A 0 Risk Factors N/A 0 Troponin N/A 0 Total 0 I personally scribed for EHSAN ESCOBAR MD ([email or web address]) on 08/24/24 at 10:07. Electronically submitted by Eddie Dang ([email or web address]). EHSAN ESCOBAR MD August 24, 2024 10:07
--- NOTE | 2024-08-24 10:16 | DVH ---
CHEST RADIOGRAPH Indication: sob Technique: Single frontal view of the chest was obtained COMPARISON: XY CHEST PORTABLE on DOS: 07/01/24, CHEST PORTABLE on DOS: 04/13/22, CXRP on DOS: 04/13/22 FINDINGS: Lines and Tubes: None Lungs: Clear Pleura: No effusion. No pneumothorax. Cardiomediastinal contours: Unremarkable Bones: Unremarkable IMPRESSION: No acute disease.
--- NOTE | 2024-08-24 10:20 | DVH ---
EXAM: CT HEAD WITHOUT CONTRAST HISTORY: fall COMPARISON: CT HEAD WITHOUT CONTRAST on DOS: 07/01/24, HEAD WITHOUT CONTRAST on DOS: 04/13/22 TECHNIQUE: Axial images of the head were obtained and reformatted in coronal and sagittal planes. All CT scans at this medical facility are performed using dose modulation techniques as appropriate t o a performed exam including the following: Automated exposure control was utilized; adjustment of th e MA and/or KV according to patient size; and use of iterative reconstruction technique. CT Dose: CTDI volume is 53.99 mGy. Dose-length product is 863.9 mGy*cm FINDINGS: There is no evidence of acute intracranial hemorrhage, mass, mass effect midline shift. There is no h ydrocephalus or extra-axial fluid collection. There are chronic microvascular ischemic changes in the supratentorial white matter. Uribe-white matter differentiation is maintained. There is mucosal thickening in the left maxillary sinus. Remaining visualized paranasal sinuses and m astoid air cells are clear. The calvarium is intact. IMPRESSION: 1. No acute intracranial process. HS:Y
[2024-08-24 10:36] VITALS: BP 174/68; PULSE 96; RESP 18; TEMP 97.7; O2SAT 98
[2024-08-24 10:38] LABS: Basophils # (auto) 0 10 ^3/uL (0-0.2); Basophils % (auto) 0.4 % (0.0-2.0); Eosinophils # (auto) 0 10 ^3/uL (0-0.8); Eosinophils % (auto) 0.5 % (0.0-7.0); Hematocrit 32.7 % (36.0-46.0); Hemoglobin 11.4 g/dL (12.2-16.2); Lymphocytes # (auto) 1.3 10 ^3/uL (0.4-5.4); Lymphocytes % (auto) 20.1 % (10.0-50.0); Mean Corpuscular Hemoglobin 35.4 pg (28.0-32.0); Mean Corpuscular Hgb Conc. 34.8 g/dL (32.0-36.0); Mean Corpuscular Volume 101.7 fL (80.0-100.0); Monocytes # (auto) 0.5 10 ^3/uL (0-1.3); Monocytes % (auto) 8.2 % (0.0-12.0); Neutrophils # (auto) 4.4 10 ^3/uL (1.6-8.6); Neutrophils % (auto) 70.8 % (37.0-80.0); Nucleated Red Blood Cells % 0.1 %; Platelet Count (auto) 151 10^3/uL (140-450); Red Blood Cells 3.22 10^6/uL (4.0-5.20); Red Cell Distribution Width 15.8 % (11.8-14.3); White Blood Cell 6.3 10^3/uL (4.4-10.8)
--- NOTE | 2024-08-24 10:41 | DVH ---
CLINICAL INDICATION: Pain TECHNIQUE: 3 radiographic views of the facial bone were obtained. Comparison: None FINDINGS/IMPRESSION: No obvious facial bone fracture within limitation of radiographs.
--- NOTE | 2024-08-24 10:41 | DVH ---
CLINICAL INDICATION: Trauma TECHNIQUE: 2 radiographic views of the bilateral humerus were obtained. Comparison: None FINDINGS/IMPRESSION: There is no evidence of acute fracture or dislocation. The visualized joint space is well maintained. The alignment is anatomical. There is no radiopaque foreign body.
[2024-08-24 10:47] LABS: Anion Gap 8 (5-15); Carbon Dioxide 26 mmol/L (20-31)
[2024-08-24 10:48] LABS: Calcium 9.7 mg/dL (8.7-10.4)
[2024-08-24 10:52] LABS: Chloride 98 mmol/L (98-107); Glucose 90 mg/dL (74-106); Sodium 132 mmol/L (136-145)
[2024-08-24 10:53] LABS: BUN/Creatinine Ratio 16.5 (10.0-20.0); Blood Urea Nitrogen 13 mg/dL (9-23)
== END 2024-08-24 11:45 | disposition home or self-care (01) ==
LOC: ER 09:32
DX: S00.83XA Contusion of other part of head, initial encounter (principal); S40.022A Contusion of left upper arm, initial encounter; I10 Essential (primary) hypertension; Z79.899 Other long term (current) drug therapy; Z88.5 Allergy status to narcotic agent; Z91.040 Latex allergy status; W19.XXXA Unspecified fall, initial encounter; Y93.89 Activity, other specified; Y92.098 Other place in other non-institutional residence as the place of occurrence of the external cause; Y99.8 Other external cause status
CPT/HCPCS: 36415; 70450; 71045; 73060; 80048; 84484; 85025

== ENCOUNTER 2024-09-16 07:26 | Outpatient (CLI) | payer OTHER ==
[2024-09-16 08:28] LABS: Alanine Aminotransferase 25 U/L (7-40); Albumin 3.6 g/dL (3.2-4.8); Alkaline Phosphatase 107 U/L (46-116); Anion Gap 5 (5-15); Aspartate Aminotransferase 28 U/L (13-40); Calcium 9.4 mg/dL (8.7-10.4); Carbon Dioxide 30 mmol/L (20-31); Chloride 102 mmol/L (98-107); Glucose 106 mg/dL (74-106); Potassium 4.4 mmol/L (3.5-5.1); Sodium 137 mmol/L (136-145)
[2024-09-16 08:29] LABS: BUN/Creatinine Ratio 7.6 (10.0-20.0); Bilirubin, Total 0.5 mg/dL (0.2-1.0); Blood Urea Nitrogen < 5 mg/dL (9-23)
== END 2024-09-16 17:00 | disposition home or self-care (01) ==
LOC: LAB 07:26
PROVIDERS: ATTEND Internal Medicine
DX: N28.89 Other specified disorders of kidney and ureter (principal)
CPT/HCPCS: 36415; 80053

== ENCOUNTER 2024-10-22 09:44 | Inpatient (IN) | payer OTHER, MEDICAID ==
[~2024-10-22] VITALS: Ht 104.1 cm; Wt 92.0 kg
--- NOTE | 2024-10-22 10:05 | ECG ---
[facility] Test Date: 2024-10-22 Test Time: 10:00:19 Pat Name: ELVIN ESCOBAR Department: ER Room: [facility] Gender: F Vine Pruner: LUCITA : 1960 Requested By: ROSALINA COUCH Order Number: [id number] Reading MD: Brayan Veliz Measurements Intervals [place] Rate: 106 P: 53 OR: 138 QRS: -42 QRSD: 136 T: 103 QT: 364 QTc: 484 Interpretive Statements Sinus tachycardia Left bundle branch block Electronically Signed On 10-25-2024 18:39:08 PDT by Brayan Veliz Please click the below link to view image of tracing.
--- NOTE | 2024-10-22 10:45 | ED.PDOC ---
History of Present Illness HPI Comments 64-year-old female presents to the ER with the prior medical history of hypertension of the chief complaint of gen weak. Patient reports on going to her PCP today which is for which was informed to come to the ER due from the patient feeling weak with nausea. Denies chills, fever, /V/D, SOB, CP. No other associated symptoms, modifiers, recent injuries or sick contacts present at this time. Chief Complaint: Abdominal Pain Time Seen by MD: 10:30 Primary Care Provider: HALIE Reviewed Notes: Nurses Notes, Medications, Allergies Allergies: Coded Allergies: Latex (Verified Allergy, Unknown, 04/16/22) Morphine (Verified Allergy, Unknown, 07/02/24) Home Meds Active Scripts Ciprofloxacin Hcl (Cipro) 500 Mg Tab, 500 MG PO BID for 7 Days, #14 TAB Prov:TAWANA CALLEJAS RESIDENT 07/08/24 Amlodipine Besylate (NORVASC TABLET) 5 Mg Tb, 5 MG PO DAILY for 30 Days, #30 TAB Prov:TAWANA CALLEJAS RESIDENT 07/08/24 Hydrocodone-Acetaminophen (Hydrocodone Bitartrate/AC 5-325 mg) 1 Tab Tab, 1 TAB PO Q6HP PRN, #14 TAB Prov:VINICIO MOORE MD 04/17/22 Reported Medications Venlafaxine Hydrochloride (Venlafaxine Hcl) 75 Mg Tab, 75 MG PO BID, TAB 05/31/22 Calcium Acetate (PHOSLO CAPSULE) 667 Mg Cp, 667 MG PO, CAP 05/31/22 Ascorbic Acid (VITAMIN C TABLET) 500 Mg Tb, 500 MG PO DAILY, TAB 05/31/22 Cholecalciferol (D3) Unknown Strength Tab, PO, TAB 05/31/22 Benazepril Hcl (Benazepril Hcl) 20 Mg Tab, 20 MG PO DAILY, TAB 05/31/22 Pantoprazole Sodium Sesquihydr (Protonix) 40 Mg Tab, 40 MG PO DAILY, #30 TAB 05/31/22 Simvastatin (Simvastatin) 20 Mg Tab, 20 MG PO QPM, TAB 05/31/22 Baclofen (Baclofen) 20 Mg Tab, 10 MG PO BID, TAB 05/31/22 Gabapentin (Gabapentin) 600 Mg Tab, 600 MG PO BID, TAB 05/31/22 Information Source: Patient Mode of Arrival: Wheelchair Severity: Moderate Timing: Came on: Suddenly Duration: Since onset Prehospital treatment: None Past Medical History PAST MEDICAL HISTORY: HTN Surgical History: Denies all surgeries GUARD MUSEUM History: Denies all GUARD MUSEUM Hx, Unknown Family History Family History: Reviewed,noncontributory to illness, Unknown Social History Smoker: Non-Smoker Alcohol: Denies ETOH Use Drugs: Denies Drug Use Lives In: Home Constitutional: reports: weakness; denies: chills, diaphoresis, fatigue, fever, malaise, sweats, others EENTM: denies: blurred vision, double vision, ear bleeding, ear discharge, ear drainage, ear pain, ear ringing, eye pain, eye redness, hearing loss, mouth pain, mouth swelling, nasal discharge, nose bleeding, nose congestion, nose pain, photophobia, tearing, throat pain, throat swelling, voice changes, others Respiratory: denies: cough, hemoptysis, orthopnea, SOB at rest, shortness of breath, SOB with excertion, stridor, wheezing, others Cardiovascular: denies: chest pain, dizzy spells, diaphoresis, Dyspnea on exertion, edema, irregular heart beat, left arm pain, lightheadedness, palpitations, PND, syncope, others Gastrointestinal: reports: nausea; denies: abdomen distended, abdominal pain, blood streaked bowels, constipated, diarrhea, dysphagia, difficulty swallowing, hematemesis, melena, poor appetite, poor fluid intake, rectal bleeding, rectal pain, vomiting, others Genitourinary: denies: abnormal vagina bleeding, burning, dyspareunia, dysuria, flank pain, frequency, hematuria, incontinence, pain, , vagina discharge, urgency, others Neurological: denies: dizziness, fainting, headache, left sided numbness, left sided weakness, numbness, paresthesia, pre-existing deficit, right sided numbness, right sided weakness, seizure, speech problems, tingling, tremors, weakness, others Musculoskeletal: denies: back pain, gout, joint pain, joint swelling, muscle pain, muscle stiffness, neck pain, others Integumetry: denies: bruises, change in color, change in hair/nails, dryness, laceration, lesions, lumps, rash, wounds, others Allergic/Immunocompromised: denies: Difficulty Healing, Frequent Infections, Hives, Itching, others Hematologic/Lymphatic: denies: anemia, blood clots, easy bleeding, easy bruising, swollen glands, others Endocrine: denies: excessive hunger, excessive sweating, excessive thirst, excessive urination, flushing, intolerance to cold, intolerance to heat, unexplained weight gain, unexplained weight loss, others Psychiatric: denies: anxiety, bipolar disorder, depression, hopeless, panic disorder, schizophrenia, sleepless, suicidal, others All Other Systems: Reviewed and Negative Physical Exam General Appearance: No Apparent Distress, Normal HEENT: Normal ENT Inspection, Pharynx Normal, TMs Normal Neck: Full Range of Motion, Non-Tender, Normal, Normal Inspection Respiratory: Chest Non-Tender, Lungs Clear, No Accessory Muscle Use, No Respiratory Distress, Normal Breath Sounds Cardiovascular: No Edema, No JVD, No Murmur, No Gallop, Normal Peripheral Pulses, Regular Rate/Rhythm Breast Exam: Deferred Gastrointestinal: No Organomegaly, Non Tender, No Pulsatile Mass, Normal Bowel Sounds, Soft Genitalia: Deferred Pelvic: Deferred Rectal: Deferred Extremities: No calf tenderness, Normal capillary refill, Normal inspection, Normal range of motion, Non-tender, No pedal edema Musculoskeletal : Apperance: Normal Neurologic: Alert, lumber sticker II-XII nml as Tested, No Motor Deficits, Normal Affect, Normal Mood, No Sensory Deficits Cerebellar Function: Normal Reflexes: Normal Skin: Dry, Normal Color, Warm Lymphatic: No Adenopathy Was a procedure done? Was a procedure done?: No Differential Dx Considerations may include: UTI, viral syndrome, ACS, electrolyte abnormality, infectious etiology X-Ray, Labs, Meds, VS Vital Signs Date Time Temp Pulse Resp B/P (MAP) Pulse Ox O2 Delivery O2 Flow Rate FiO2 10/22/24 11:55 98.6 96 16 154/68 (96) 97 98.6 10/22/24 10:12 98.1 113 20 112/72 (85) 99 98.1 10/22/24 10:00 106 Lab Test 10/22/24 11:59 10/22/24 10:44 Range/Units Troponin I High Sensitivity 10 10 </=34 ng/L White Blood Count 4.1 L 4.4-10.8 10^3/uL Red Blood Count 3.04 L 4.0-5.20 10^6/uL Hemoglobin 11.6 L 12.2-16.2 g/dL Hematocrit 33.2 L 36.0-46.0 % Mean Corpuscular Volume 109.2 H 80.0-100.0 fL Mean Corpuscular Hemoglobin 38.2 H 28.0-32.0 pg Mean Corpuscular Hemoglobin Concent 35.0 32.0-36.0 g/dL Red Cell Distribution Width 15.5 H 11.8-14.3 % Platelet Count 203 140-450 10^3/uL Mean Platelet Volume 7.6 6.9-10.8 fL Neutrophils (%) (Auto) 58.6 37.0-80.0 % Lymphocytes (%) (Auto) 25.8 10.0-50.0 % Monocytes (%) (Auto) 11.5 0.0-12.0 % Eosinophils (%) (Auto) 3.5 0.0-7.0 % Basophils (%) (Auto) 0.6 0.0-2.0 % Neutrophils # (Auto) 2.4 1.6-8.6 10 ^3/uL Lymphocytes # (Auto) 1.1 0.4-5.4 10 ^3/uL Monocytes # (Auto) 0.5 0-1.3 10 ^3/uL Eosinophils # (Auto) 0.1 0-0.8 10 ^3/uL Basophils # (Auto) 0 0-0.2 10 ^3/uL Nucleated Red Blood Cells 0.2 % Sodium Level 133 L 136-145 mmol/L Potassium Level 3.2 L 3.5-5.1 mmol/L Chloride Level 95 L 98-107 mmol/L Carbon Dioxide Level 29 20-31 mmol/L Anion Gap 9 5-15 Blood Urea Nitrogen 6 L 9-23 mg/dL Creatinine 0.85 0.550-1.02 mg/dL Glomerular Filtration Rate Calc 76 >90 mL/min BUN/Creatinine Ratio 7.1 L 10.0-20.0 Serum Glucose 115 H 74-106 mg/dL Calcium Level 9.4 8.7-10.4 mg/dL B-Type Natriuretic Peptide 301.90 0-100 pg/mL Time of 1ST Reevaluation: 11:00 Reevaluation 1ST: Unchanged Patient Education/Counseling: Diagnosis, Treatment, Prognosis Family Education/Counseling: No Family Present SEPSIS Sepsis Screen Date sepsis recognized/suspect: Oct 22, 2024 Time Sepsis recognized/suspect: 0950 Recent Procedure: No On Antibiotic Therapy: No Respiratory Rate >20: No Heart Rate >90: No Temp<36 C (96.8 F) or >38.3 C: No SBP <90 or MAP <65 mmHG: No New Acute Mental Status Change: No Is the patient on CPAP, BIPAP,: No Physician Orders Urinalysis (10/22/24 10:31) Chest Portable (10/22/24 10:31) Troponin-I Hs (10/22/24 13:31) Electrocardigram (10/22/24 11:31) Electrocardigram (10/22/24 13:31) Vital Signs Date Time Temp Pulse Resp B/P (MAP) Pulse Ox O2 Delivery O2 Flow Rate FiO2 10/22/24 11:55 98.6 96 16 154/68 (96) 97 98.6 10/22/24 10:12 98.1 113 20 112/72 (85) 99 98.1 10/22/24 10:00 106 Laboratory Tests Test 10/22/24 10:44 White Blood Count 4.1 10^3/uL (4.4-10.8) L Departure 1 Departure Time of Disposition: 13:13 (Patient went generalized weakness concerning for possible UTI or other infectious etiology discussed with him with the patient's primary care doctor who recommends admission we will admit patient for further workup and expert consultation) Impression: Primary Impression: Generalized weakness Disposition: ADMITTED INPATIENT Admit to: Med Surg Condition: Serious Critical Care Note Critical Care Time?: No Stability Stability form required: No I personally scribed for ROSALINA COUCH MD ([email or web address]) on 10/22/24 at 10:45. Electronically submitted by Deni Coppola ([email or web address]). ROSALINA COUCH MD Oct 22, 2024 10:45
--- NOTE | 2024-10-22 11:00 | DVH ---
EXAM: XY CHEST PORTABLE HISTORY: weakness COMPARISON: XY CHEST PORTABLE on DOS: 08/24/24, XY CHEST PORTABLE on DOS: 07/01/24, CHEST PORTABLE on D OS: 04/13/22, CXRP on DOS: 04/13/22 TECHNIQUE: Portable AP view of the chest was performed. FINDINGS: No pneumothorax, consolidative infiltrates, or pulmonary edema. There is central peribronchial thicke davide. The heart is borderline enlarged. There is abundant overlying adipose tissue. IMPRESSION: 1. Reactive airways disease. 2. Obesity.
[2024-10-22 11:13] LABS: Hemoglobin 11.6 g/dL (12.2-16.2)
[2024-10-22 11:17] LABS: Anion Gap 9 (5-15); Calcium 9.4 mg/dL (8.7-10.4); Carbon Dioxide 29 mmol/L (20-31)
[2024-10-22 11:19] LABS: Chloride 95 mmol/L (98-107); Hematocrit 33.2 % (36.0-46.0); Mean Corpuscular Hemoglobin 38.2 pg (28.0-32.0); Mean Corpuscular Volume 109.2 fL (80.0-100.0); Nucleated Red Blood Cells % 0.2 %; Potassium 3.2 mmol/L (3.5-5.1); Sodium 133 mmol/L (136-145)
[2024-10-22 11:22] LABS: BUN/Creatinine Ratio 7.1 (10.0-20.0); Blood Urea Nitrogen 6 mg/dL (9-23); Glucose 115 mg/dL (74-106)
[2024-10-22] MEDS: POTASSIUM CHL 20 Meq TABLET PO ONE (14:24)
[2024-10-22 14:37] VITALS: PULSE 84; RESP 20; O2SAT 98
[2024-10-22 15:32] LABS: Urine Protein, UAD Negative (Negative)
[2024-10-22 15:39] LABS: Amphetamine Screen, Urine Neg (NEGATIVE); Barbiturate Scree,Urine Neg (NEGATIVE); Benzodiazephine Screen, Urine Neg (NEGATIVE); Cannabinoid Screen, Urine Neg (NEGATIVE); Cocaine Screen, Urine Neg (NEGATIVE); Opiate Scree,Urine Pos (NEGATIVE); Phencyclidine Screen, Urine Neg (NEGATIVE)
[2024-10-22] MEDS ORDERED: ACETAMINOPHEN 325 MG TAB PO PRN (16:15)
--- NOTE | 2024-10-22 16:21 | DVHHP2 ---
History of Present Illness Reason for Visit: Weakness History of Present Illness Bruna Hope is a 64-year-old female with past medical history of hypertension, fibromyalgia, hyperlipidemia, rheumatoid arthritis, bilateral wrist surgery, , and pinched nerve who presents to the ED with weakness after visiting her primary care physician's office. Patient stated that the weakness has been ongoing for the last day. She denies any recent sick co ntacts, recent travels, recent trauma or injury, recent ingestion of spoiled food, chest pain, shortness of breath, fever, chills, lightheadedness, dizziness, abdominal pain, nausea, vomiting, or diarrhea. Patient also states that she has no complaints of dysuria, frequency, or urgency. Cardiovascular: HTN, hyperipidemia Past Medical History Fibromyalgia Pinched nerve Rheumatoid arthritis Past Surgical History: , Other (Bilateral wrist surgery) Family History: DM, Other (Mom with diabetes) Smoke: No ALCOHOL: none (Quit) Drugs: None Lives: with Family Domestic Violence: Neg Review of Systems Constitutional: Yes: Weakness Allergies: Coded Allergies: Latex (Verified Allergy, Unknown, 04/16/22) Morphine (Verified Allergy, Unknown, 07/02/24) Medications Current Medications Medications Dose Ordered Sig/Ashish Route Start Time Stop Time Status Last Admin Dose Admin Ceftriaxone Sodium 50 ml @ 100 mls/hr DAILY@09 IV 10/22/24 16:15 UNV Ondansetron HCl 4 mg Q4HP PRN IV 10/22/24 16:15 UNV Acetaminophen 650 mg Q6HP PRN PO 10/22/24 16:15 UNV Exam Vital Signs Vital Signs Date Time Temp Pulse Resp B/P (MAP) Pulse Ox O2 Delivery O2 Flow Rate FiO2 10/22/24 14:37 84 20 98 Room Air* 0 21 10/22/24 13:50 98.2 166/90 (115) 98.2 General Appearance: Alert, Oriented X3, Cooperative, No acute distress HEENT: Atraumatic, PERRLA, EOMI, Mucous membr. moist/pink Respiratory: Clear to auscultation, Normal air movement Cardiovascular: Normal S1, Normal S2, No murmurs Abdominal: Normal bowel sounds, Soft Extremities: Normal pulses Skin: No significant lesion Neuro: Normal speech, Strength at 5/5 X4 ext, Normal tone, Sensation intact Psych/Mental Status: Mental status NL, Mood NL Labs/Xrays Labs Test 10/22/24 13:41 10/22/24 10:44 10/22/24 10:05 Range/Units Troponin I High Sensitivity 10 </=34 ng/L White Blood Count 4.1 L 4.4-10.8 10^3/uL Red Blood Count 3.04 L 4.0-5.20 10^6/uL Hemoglobin 11.6 L 12.2-16.2 g/dL Hematocrit 33.2 L 36.0-46.0 % Mean Corpuscular Volume 109.2 H 80.0-100.0 fL Mean Corpuscular Hemoglobin 38.2 H 28.0-32.0 pg Mean Corpuscular Hemoglobin Concent 35.0 32.0-36.0 g/dL Red Cell Distribution Width 15.5 H 11.8-14.3 % Platelet Count 203 140-450 10^3/uL Mean Platelet Volume 7.6 6.9-10.8 fL Neutrophils (%) (Auto) 58.6 37.0-80.0 % Lymphocytes (%) (Auto) 25.8 10.0-50.0 % Monocytes (%) (Auto) 11.5 0.0-12.0 % Eosinophils (%) (Auto) 3.5 0.0-7.0 % Basophils (%) (Auto) 0.6 0.0-2.0 % Neutrophils # (Auto) 2.4 1.6-8.6 10 ^3/uL Lymphocytes # (Auto) 1.1 0.4-5.4 10 ^3/uL Monocytes # (Auto) 0.5 0-1.3 10 ^3/uL Eosinophils # (Auto) 0.1 0-0.8 10 ^3/uL Basophils # (Auto) 0 0-0.2 10 ^3/uL Nucleated Red Blood Cells 0.2 % Sodium Level 133 L 136-145 mmol/L Potassium Level 3.2 L 3.5-5.1 mmol/L Chloride Level 95 L 98-107 mmol/L Carbon Dioxide Level 29 20-31 mmol/L Anion Gap 9 5-15 Blood Urea Nitrogen 6 L 9-23 mg/dL Creatinine 0.85 0.550-1.02 mg/dL Glomerular Filtration Rate Calc 76 >90 mL/min BUN/Creatinine Ratio 7.1 L 10.0-20.0 Serum Glucose 115 H 74-106 mg/dL Calcium Level 9.4 8.7-10.4 mg/dL B-Type Natriuretic Peptide 301.90 0-100 pg/mL Urine Color Light-yellow Yellow Urine Clarity Clear Clear Urine pH 6.0 5.0-9.0 Urine Specific [place] 1.012 1.001-1.035 Urine Protein Negative Negative Urine Ketones Negative Negative Urine Blood Negative Negative /uL Urine Nitrite Negative Negative Urine Bilirubin Negative Negative Urine Urobilinogen Normal Negative mg/dL Urine Leukocyte Esterase 1+ Negative /uL Urine RBC 1 0 - 4 /hpf Urine Microscopic WBC 8 H 0-5 /HPF Urine Squamous Epithelial Cells Few <5 /hpf Urine Bacteria Few H None Seen /hpf Urine Glucose Normal Normal mg/dL Urine Opiates Screen Pos NEGATIVE Urine Fentanyl Screen Neg NEGATIVE Urine Barbiturates Screen Neg NEGATIVE Urine Phencyclidine Screen Neg NEGATIVE Urine Amphetamines Screen Neg NEGATIVE Urine Benzodiazepines Screen Neg NEGATIVE Urine Cocaine Screen Neg NEGATIVE Urine Cannabinoids Screen Neg NEGATIVE EXAM: XY CHEST PORTABLE HISTORY: weakness COMPARISON: XY CHEST PORTABLE on DOS: 08/24/24, XY CHEST PORTABLE on DOS: 07/01/24, CHEST PORTABLE on DOS: 04/13/22, CXRP on DOS: 04/13/22 TECHNIQUE: Portable AP view of the chest was performed. FINDINGS: No pneumothorax, consolidative infiltrates, or pulmonary edema. There is central peribronchial thickening. The heart is borderline enlarged. There is abundant overlying adipose tissue. IMPRESSION: 1. Reactive airways disease. 2. Obesity. SEPSIS Sepsis Screen Date sepsis recognized/suspect: Oct 22, 2024 Time Sepsis recognized/suspect: 09 Recent Procedure: No On Antibiotic Therapy: No Respiratory Rate >20: No Heart Rate >90: No Temp<36 C (96.8 F) or >38.3 C: No SBP <90 or MAP <65 mmHG: No New Acute Mental Status Change: No Is the patient on CPAP, BIPAP,: No Physician Orders Chest Portable (10/22/24 10:31) Electrocardigram (10/22/24 11:31) Electrocardigram (10/22/24 13:31) Ceftriaxone 1gm/50ml D5w (Rocephin) (10/22/24 16:15) Admit (10/22/24 16:12) Allergies (10/22/24 16:12) Code Status (10/22/24 16:12) Ondansetron Hcl (Zofran) (10/22/24 16:15) Complete Blood Count (10/23/24 04:00) Comprehensive Metabolic Panel (10/23/24 04:00) Cardiac Diet-2gna,Lofat,Lochol (10/22/24 Dinner) Acetaminophen Tablet (Tylenol Tablet) (10/22/24 16:15) Sequential Compression Device (10/22/24 ) Amlodipine Tablet (Norvasc Tablet) (10/23/24 10:00) Ascorbic Acid Tablet (Vitamin C Tablet) (10/23/24 10:00) Calcium Acetate Capsule (Phoslo Capsule) (10/23/24 10:00) Pantoprazole Tablet (Protonix Tablet) (10/23/24 10:00) (Nf) Benazepril Hcl (10/23/24 10:00) (Nf) Gabapentin (10/22/24 22:00) (Nf) Simvastatin (10/22/24 18:00) (Nf) Venlafaxine Hydrochloride (Venlafax (10/22/24 22:00) Vital Signs Date Time Temp Pulse Resp B/P (MAP) Pulse Ox O2 Delivery O2 Flow Rate FiO2 10/22/24 14:37 84 20 98 Room Air* 0 21 10/22/24 13:50 98.2 95 18 166/90 (115) 95 98.2 10/22/24 13:50 95 18 100 Room Air 10/22/24 11:55 98.6 96 16 154/68 (96) 97 98.6 10/22/24 10:12 98.1 113 20 112/72 (85) 99 98.1 10/22/24 10:00 106 Laboratory Tests Test 10/22/24 10:44 White Blood Count 4.1 10^3/uL (4.4-10.8) L Medications Medications Dose Ordered Sig/Ashish Route Start Time Stop Time Status Last Admin Dose Admin Potassium Chloride 40 meq ONCE ONCE PO 10/22/24 14:00 10/22/24 14:09 DC 10/22/24 14:24 40 MEQ Assessment/Plan Assessment/Plan Assessment Generalized weakness likely due to UTI Hyponatremia Hypokalemia Obesity Ex alcohol use History of hypertension History of fibromyalgia History of hyperlipidemia History of rheumatoid arthritis History of bilateral wrist surgery History of History of pinched nerve Plan Admit to [facility] [facility] IV antibiotics-ceftriaxone Troponin noted negative x3 BNP noted UA UDS Last echo on 06/12/2024 EF 50% Diet Home medications reconciled DVT prophylaxis-not indicated patient ambulating PUD prophylaxis-PPIs Discussed plan of care with patient and nurse Counseled patient on continuance of cessation of alcohol use Counseled patient on lifestyle modifications, diet, and exercise [id number] Preventive counseling healthy eating habits, physical activity, and regu lar checkups Plan discussed with: Patient My Orders Orders - DAT MCCRACKEN Procedure Category Date Status Time Ceftriaxone 1gm/50ml PHA 10/22/24 Logged D5w (Rocephin) 16:15 Admit ADMIT 10/22/24 Transmitted 16:12 Allergies ALBINO 10/22/24 In Process 16:12 Code Status CODE 10/22/24 Transmitted 16:12 Ondansetron Hcl PHA 10/22/24 Logged (Zofran) 16:15 Complete Blood Count LAB 10/23/24 Verified 04:00 Comprehensive LAB 10/23/24 Verified Metabolic Panel 04:00 Cardiac DIET 10/22/24 Transmitted Diet-2gna,Lofat,Lochol Dinner Acetaminophen Tablet PHA 10/22/24 Logged (Tylenol Tablet) 16:15 Sequential ALBINO 10/22/24 In Process Compression Device Amlodipine Tablet PHA 10/23/24 Verified (Norvasc Tablet) 10:00 Ascorbic Acid Tablet PHA 10/23/24 Verified (Vitamin C Tablet) 10:00 Calcium Acetate PHA 10/23/24 Verified Capsule (Phoslo 10:00 Pantoprazole Tablet PHA 10/23/24 Verified (Protonix Tablet) 10:00 (Nf) Benazepril Hcl PHA 10/23/24 Verified 10:00 (Nf) Gabapentin PHA 10/22/24 Verified 22:00 (Nf) Simvastatin PHA 10/22/24 Verified 18:00 (Nf) Venlafaxine PHA 10/22/24 Verified Hydrochloride 22:00 Date of Service: Oct 22, 2024 Billing Provider: DAT MCCRACKEN Common Visit Codes: [id number] INP/OBS CARE (HIGH) Secondary Visit Codes: [id number] COUNSELING IND DAT MCCRACKEN Oct 22, 2024 16:21
[2024-10-23] VITALS (8 sets, daily range): BP systolic 105–143; BP diastolic 42–88; PULSE 92–119; RESP 14–18; TEMP 97.9–98.9; O2SAT 94–99
[2024-10-23] MEDS: VENLAFAXINE HCL 37.5MG TABLET PO SCH (00:31)
[2024-10-23] MEDS: GABAPENTIN 300 MG CAP PO SCH (00:31)
[2024-10-23] MEDS: ATORVASTATIN 20 MG TAB PO SCH (00:32)
[2024-10-23] MEDS ORDERED: GABA800T97 PO (00:40)
[2024-10-23] MEDS ORDERED: PANT40T PO (00:40)
[2024-10-23] MEDS ORDERED: [UNRECOGNIZED DRUG - CODE] (00:40)
[2024-10-23] MEDS ORDERED: FERR325T20 PO (00:40)
[2024-10-23] MEDS ORDERED: HYDR-4798 PO (00:41)
[2024-10-23 06:32] LABS: Hematocrit 29.1 % (36.0-46.0); Hemoglobin 10.1 g/dL (12.2-16.2); Mean Corpuscular Hemoglobin 37.8 pg (28.0-32.0); Mean Corpuscular Volume 108.7 fL (80.0-100.0); Nucleated Red Blood Cells % 0.2 %
[2024-10-23 06:41] LABS: Alanine Aminotransferase 22 U/L (7-40); Anion Gap 8 (5-15); BUN/Creatinine Ratio 9.0 (10.0-20.0); Calcium 8.9 mg/dL (8.7-10.4); Carbon Dioxide 29 mmol/L (20-31); Chloride 98 mmol/L (98-107); Glucose 85 mg/dL (74-106); Potassium 3.9 mmol/L (3.5-5.1)
[2024-10-23 06:43] LABS: Bilirubin, Total 0.8 mg/dL (0.2-1.0)
[2024-10-23 06:44] LABS: Albumin 2.9 g/dL (3.2-4.8); Alkaline Phosphatase 144 U/L (46-116); Blood Urea Nitrogen 6 mg/dL (9-23); Sodium 135 mmol/L (136-145); Total Protein 5.4 g/dL (5.7-8.2)
[2024-10-23] MEDS: ASCORBIC ACID 500 MG TAB PO SCH (10:22)
[2024-10-23] MEDS: BENAZEPRIL HCL 10 MG TAB PO SCH (10:23)
[2024-10-23] MEDS: PANTOPRAZOLE 40 MG TAB PO SCH (10:24)
[2024-10-23] MEDS: CALCIUM ACETATE 667 MG CAP PO SCH (10:28)
[2024-10-23] MEDS: cefTRIAXone 1GM/50ML D5W 50 ML IV SCH (12:07)
[2024-10-23] MEDS: ONDANSETRON HCL 4 MG/2 ML VIAL IV PRN (12:07)
--- NOTE | 2024-10-23 12:31 | DVHPN2 ---
Reviewed: Care Plan, H&P, Labs, Medications, Previous Orders, Radiology Changes from previous H/P or p: No Changes Objective Vitals Vital Signs Date Time Temp Pulse Resp B/P (MAP) Pulse Ox O2 Delivery O2 Flow Rate FiO2 10/23/24 10:24 143/66 10/23/24 08:30 98.9 113 14 96 98.9 10/23/24 08:00 Room Air* 0 21 Intake/Output Intake and Output 10/23/24 07:00 Intake Total 250 ml Balance 250 ml Intake Oral 250 ml Medications Current Medications Medications Dose Ordered Sig/Ashish Route Start Time Stop Time Status Last Admin Dose Admin Ceftriaxone Sodium 50 ml @ 100 mls/hr DAILY@09 IV 10/22/24 16:15 10/23/24 12:18 100 MLS/HR Ondansetron HCl 4 mg Q4HP PRN IV 10/22/24 16:15 10/23/24 12:07 4 MG Acetaminophen 650 mg Q6HP PRN PO 10/22/24 16:15 Amlodipine Besylate 5 mg DAILY PO 10/23/24 10:00 10/23/24 10:24 5 MG Ascorbic Acid 500 mg DAILY PO 10/23/24 10:00 10/23/24 10:22 500 MG Calcium Acetate 667 mg DAILY@NOON PO 10/23/24 10:00 10/23/24 12:07 667 MG Pantoprazole Sodium 40 mg DAILY PO 10/23/24 10:00 10/23/24 10:24 40 MG Benazepril HCl 20 mg DAILY PO 10/23/24 10:00 10/23/24 10:23 20 MG Gabapentin 600 mg BID PO 10/22/24 22:00 10/23/24 10:24 600 MG Atorvastatin Calcium 10 mg HS PO 10/22/24 22:00 10/23/24 00:32 10 MG Venlafaxine HCl 75 mg BID PO 10/22/24 22:00 10/23/24 10:24 75 MG Laboratory Results Laboratory Tests 10/23/24 05:56 Chemistry Test 10/23/24 05:56 Albumin 2.9 g/dL (3.2-4.8) L Calcium Level 8.9 mg/dL (8.7-10.4) Total Protein 5.4 g/dL (5.7-8.2) L LFT Test 10/23/24 05:56 Alanine Aminotransferase (ALT) 22 U/L (7-40) Alkaline Phosphatase 144 U/L (46-116) H Aspartate Amino Transferase (AST) 43 U/L (13-40) H Total Bilirubin 0.8 mg/dL (0.2-1.0) Urinalysis Test 10/22/24 10:05 Urine Color Light-yellow (Yellow) Urine Clarity Clear (Clear) Urine pH 6.0 (5.0-9.0) Urine Specific [place] 1.012 (1.001-1.035) Urine Protein Negative (Negative) Urine Ketones Negative (Negative) Urine Blood Negative /uL (Negative) Urine Nitrite Negative (Negative) Urine Bilirubin Negative (Negative) Urine Urobilinogen Normal mg/dL (Negative) Urine Leukocyte Esterase 1+ /uL (Negative) Urine RBC 1 /hpf (0 - 4) Urine Microscopic WBC 8 /HPF (0-5) H Urine Squamous Epithelial Cells Few /hpf (<5) Urine Bacteria Few /hpf (None Seen) H Urine Glucose Normal mg/dL (Normal) Labs and/or images reviewed: Labs reviewed by me, Image(s) reviewed by me Assessment/Plan Assessment/Plan Generalized weakness secondary to urinary tract infection Acute UTI: Rocephin Hyponatremia Hypokalemia Hypertension Hypercholesterolemia Possible flare-up of rheumatoid arthritis with right shoulder pain left leg pain and back pain, patient under the treatment of Dr. Burroughs. History of alcohol abuse Chronic Pain syndrome [place] [address] Dior Plan discussed with: Patient Date of Service: Oct 23, 2024 Billing Provider: JANI OVALLES MD Common Visit Codes: [id number] INP/OBS CARE(HIGH) JANI OVALLES MD Oct 23, 2024 12:31
[2024-10-23] MEDS: HYDROcodone-ACET 10/325MG TAB PO PRN (14:21)
[2024-10-24 05:00] VITALS: BP 121/50; PULSE 99; RESP 17; TEMP 97.8; O2SAT 93
[2024-10-24 08:19] VITALS: PULSE 97; RESP 14; O2SAT 94
[2024-10-24 08:30] VITALS: BP 118/63; PULSE 97; RESP 14; TEMP 98.2; O2SAT 94
[2024-10-24 12:30] VITALS: BP 94/55; PULSE 98; RESP 18; TEMP 97.7; O2SAT 98
--- NOTE | 2024-10-24 12:48 | DVHPN2 ---
Reviewed: Care Plan, H&P, Labs, Medications, Previous Orders, Radiology Changes from previous H/P or p: No Changes Objective Vitals Vital Signs Date Time Temp Pulse Resp B/P (MAP) Pulse Ox O2 Delivery O2 Flow Rate FiO2 10/24/24 09:31 118/63 10/24/24 08:30 98.2 97 14 94 98.2 10/24/24 08:19 Room Air* 0 21 Intake/Output Intake and Output 10/24/24 07:00 Intake Total 450 ml Balance 450 ml Intake Oral 400 ml IV Total 50 ml # Voids 3 # Bowel Movements 1 Medications Current Medications Medications Dose Ordered Sig/Ashish Route Start Time Stop Time Status Last Admin Dose Admin Ceftriaxone Sodium 50 ml @ 100 mls/hr DAILY@09 IV 10/22/24 16:15 10/24/24 09:27 100 MLS/HR Ondansetron HCl 4 mg Q4HP PRN IV 10/22/24 16:15 10/23/24 12:07 4 MG Acetaminophen 650 mg Q6HP PRN PO 10/22/24 16:15 Amlodipine Besylate 5 mg DAILY PO 10/23/24 10:00 10/24/24 09:31 5 MG Ascorbic Acid 500 mg DAILY PO 10/23/24 10:00 10/24/24 09:30 500 MG Calcium Acetate 667 mg DAILY@NOON PO 10/23/24 10:00 10/24/24 11:46 667 MG Pantoprazole Sodium 40 mg DAILY PO 10/23/24 10:00 10/24/24 09:31 40 MG Benazepril HCl 20 mg DAILY PO 10/23/24 10:00 10/24/24 09:31 20 MG Gabapentin 600 mg BID PO 10/22/24 22:00 10/24/24 09:31 600 MG Atorvastatin Calcium 10 mg HS PO 10/22/24 22:00 10/23/24 22:30 0.5 MG Venlafaxine HCl 75 mg BID PO 10/22/24 22:00 10/24/24 09:30 75 MG Acetaminophen/ Hydrocodone Bitart 1 tab Q6HP PRN PO 10/23/24 12:30 10/24/24 05:22 1 TAB Laboratory Results Laboratory Tests 10/23/24 05:56 Urinalysis Test 10/22/24 10:05 Urine Color Light-yellow (Yellow) Urine Clarity Clear (Clear) Urine pH 6.0 (5.0-9.0) Urine Specific [place] 1.012 (1.001-1.035) Urine Protein Negative (Negative) Urine Ketones Negative (Negative) Urine Blood Negative /uL (Negative) Urine Nitrite Negative (Negative) Urine Bilirubin Negative (Negative) Urine Urobilinogen Normal mg/dL (Negative) Urine Leukocyte Esterase 1+ /uL (Negative) Urine RBC 1 /hpf (0 - 4) Urine Microscopic WBC 8 /HPF (0-5) H Urine Squamous Epithelial Cells Few /hpf (<5) Urine Bacteria Few /hpf (None Seen) H Urine Glucose Normal mg/dL (Normal) Labs and/or images reviewed: Labs reviewed by me, Image(s) reviewed by me Assessment/Plan Assessment/Plan Generalized weakness secondary to urinary tract infection Acute UTI: Rocephin Hyponatremia Hypokalemia Hypertension Hypercholesterolemia Possible flare-up of rheumatoid arthritis with right shoulder pain left leg pain and back pain, patient under the treatment of Dr. Burroughs. History of alcohol abuse Chronic Pain syndrome [place] [address] Dior Plan discussed with: Patient My Orders Orders - JANI OVALLES MD Procedure Category Date Status Time Mechanical Soft Diet DIET 10/23/24 Transmitted Dinner Date of Service: Oct 24, 2024 Billing Provider: JANI OVALLES MD Common Visit Codes: [id number] INP/OBS CARE(HIGH) JANI OVALLES MD Oct 24, 2024 12:48
[2024-10-24 16:55] VITALS: BP 127/60; PULSE 95; RESP 16; TEMP 97.7; O2SAT 95
[2024-10-24 21:00] VITALS: BP 114/57; PULSE 97; RESP 18; TEMP 97.8; O2SAT 96
[2024-10-25 05:00] VITALS: BP 125/68; PULSE 91; RESP 17; TEMP 97.9; O2SAT 88
[2024-10-25 09:00] VITALS: BP 117/69; PULSE 98; RESP 16; TEMP 98.2; O2SAT 96
--- NOTE | 2024-10-25 12:24 | DVHPN2 ---
Reviewed: Care Plan, H&P, Labs, Medications, Previous Orders, Radiology Changes from previous H/P or p: No Changes Objective Vitals Vital Signs Date Time Temp Pulse Resp B/P (MAP) Pulse Ox O2 Delivery O2 Flow Rate FiO2 10/25/24 10:00 120/56 10/25/24 09:00 98.2 98 16 96 98.2 10/25/24 08:05 Room Air* 0 21 Intake/Output Intake and Output 10/25/24 07:00 Intake Total 53 ml Balance 53 ml Intake Oral 3 ml IV Total 50 ml # Voids 2 Medications Current Medications Medications Dose Ordered Sig/Ashish Route Start Time Stop Time Status Last Admin Dose Admin Ceftriaxone Sodium 50 ml @ 100 mls/hr DAILY@09 IV 10/22/24 16:15 10/25/24 08:39 100 MLS/HR Ondansetron HCl 4 mg Q4HP PRN IV 10/22/24 16:15 10/23/24 12:07 4 MG Acetaminophen 650 mg Q6HP PRN PO 10/22/24 16:15 Amlodipine Besylate 5 mg DAILY PO 10/23/24 10:00 10/25/24 10:00 5 MG Ascorbic Acid 500 mg DAILY PO 10/23/24 10:00 10/25/24 09:59 500 MG Calcium Acetate 667 mg DAILY@NOON PO 10/23/24 10:00 10/25/24 11:42 667 MG Pantoprazole Sodium 40 mg DAILY PO 10/23/24 10:00 10/25/24 09:58 40 MG Benazepril HCl 20 mg DAILY PO 10/23/24 10:00 10/25/24 09:58 20 MG Gabapentin 600 mg BID PO 10/22/24 22:00 10/25/24 09:59 600 MG Atorvastatin Calcium 10 mg HS PO 10/22/24 22:00 10/24/24 21:31 10 MG Venlafaxine HCl 75 mg BID PO 10/22/24 22:00 10/25/24 09:59 75 MG Acetaminophen/ Hydrocodone Bitart 1 tab Q6HP PRN PO 10/23/24 12:30 10/25/24 05:41 1 TAB Laboratory Results Laboratory Tests 10/23/24 05:56 Urinalysis Test 10/22/24 10:05 Urine Color Light-yellow (Yellow) Urine Clarity Clear (Clear) Urine pH 6.0 (5.0-9.0) Urine Specific [place] 1.012 (1.001-1.035) Urine Protein Negative (Negative) Urine Ketones Negative (Negative) Urine Blood Negative /uL (Negative) Urine Nitrite Negative (Negative) Urine Bilirubin Negative (Negative) Urine Urobilinogen Normal mg/dL (Negative) Urine Leukocyte Esterase 1+ /uL (Negative) Urine RBC 1 /hpf (0 - 4) Urine Microscopic WBC 8 /HPF (0-5) H Urine Squamous Epithelial Cells Few /hpf (<5) Urine Bacteria Few /hpf (None Seen) H Urine Glucose Normal mg/dL (Normal) Labs and/or images reviewed: Labs reviewed by me, Image(s) reviewed by me Assessment/Plan Assessment/Plan Generalized weakness secondary to urinary tract infection Acute UTI: Rocephin Hyponatremia Hypokalemia Hypertension Hypercholesterolemia Possible flare-up of rheumatoid arthritis with right shoulder pain left leg pain and back pain, patient under the treatment of Dr. Burroughs. History of alcohol abuse Chronic Pain syndrome [place] [address] Dior Plan discussed with: Patient My Orders Orders - JANI OVALLES MD Procedure Category Date Status Time Urine Bacterial RIYA 10/24/24 Logged Culture 12:48 Date of Service: Oct 25, 2024 Billing Provider: JANI OVALLES MD Common Visit Codes: [id number] INP/OBS CARE(HIGH) JANI OVALLES MD Oct 25, 2024 12:24
[2024-10-25] MEDS ORDERED: HYDR-4798 PO (12:25)
[2024-10-25] MEDS ORDERED: CIPR-173 PO (12:25)
--- NOTE | 2024-10-25 12:30 | DVHDS2 ---
Discharge Summary Date of Admission Oct 22, 2024 at 16:12 Date of Discharge: Oct 25, 2024 Admitting Diagnosis Generalized weakness Wounds: None Labs/Diagnostic Data: Laboratory Results Test 10/23/24 05:56 10/22/24 13:41 10/22/24 10:44 10/22/24 10:05 White Blood Count 3.7 10^3/uL (4.4-10.8) Red Blood Count 2.67 10^6/uL (4.0-5.20) Hemoglobin 10.1 g/dL (12.2-16.2) Hematocrit 29.1 % (36.0-46.0) Mean Corpuscular Volume 108.7 fL (80.0-100.0) Mean Corpuscular Hemoglobin 37.8 pg (28.0-32.0) Mean Corpuscular Hemoglobin Concent 34.8 g/dL (32.0-36.0) Red Cell Distribution Width 15.5 % (11.8-14.3) Platelet Count 139 10^3/uL (140-450) Mean Platelet Volume 7.4 fL (6.9-10.8) Neutrophils (%) (Auto) 56.4 % (37.0-80.0) Lymphocytes (%) (Auto) 28.5 % (10.0-50.0) Monocytes (%) (Auto) 11.1 % (0.0-12.0) Eosinophils (%) (Auto) 3.7 % (0.0-7.0) Basophils (%) (Auto) 0.3 % (0.0-2.0) Neutrophils # (Auto) 2.1 10 ^3/uL (1.6-8.6) Lymphocytes # (Auto) 1.1 10 ^3/uL (0.4-5.4) Monocytes # (Auto) 0.4 10 ^3/uL (0-1.3) Eosinophils # (Auto) 0.1 10 ^3/uL (0-0.8) Basophils # (Auto) 0 10 ^3/uL (0-0.2) Nucleated Red Blood Cells 0.2 % Sodium Level 135 mmol/L (136-145) Potassium Level 3.9 mmol/L (3.5-5.1) Chloride Level 98 mmol/L (98-107) Carbon Dioxide Level 29 mmol/L (20-31) Anion Gap 8 (5-15) Blood Urea Nitrogen 6 mg/dL (9-23) Creatinine 0.67 mg/dL (0.550-1.02) Glomerular Filtration Rate Calc 96 mL/min (>90) BUN/Creatinine Ratio 9.0 (10.0-20.0) Serum Glucose 85 mg/dL (74-106) Calcium Level 8.9 mg/dL (8.7-10.4) Total Bilirubin 0.8 mg/dL (0.2-1.0) Aspartate Amino Transferase (AST) 43 U/L (13-40) Alanine Aminotransferase (ALT) 22 U/L (7-40) Alkaline Phosphatase 144 U/L (46-116) Total Protein 5.4 g/dL (5.7-8.2) Albumin 2.9 g/dL (3.2-4.8) Troponin I High Sensitivity 10 ng/L (</=34) B-Type Natriuretic Peptide 301.90 pg/mL (0-100) Urine Color Light-yellow (Yellow) Urine Clarity Clear (Clear) Urine pH 6.0 (5.0-9.0) Urine Specific [place] 1.012 (1.001-1.035) Urine Protein Negative (Negative) Urine Ketones Negative (Negative) Urine Blood Negative /uL (Negative) Urine Nitrite Negative (Negative) Urine Bilirubin Negative (Negative) Urine Urobilinogen Normal mg/dL (Negative) Urine Leukocyte Esterase 1+ /uL (Negative) Urine RBC 1 /hpf (0 - 4) Urine Microscopic WBC 8 /HPF (0-5) Urine Squamous Epithelial Cells Few /hpf (<5) Urine Bacteria Few /hpf (None Seen) Urine Glucose Normal mg/dL (Normal) Urine Opiates Screen Pos (NEGATIVE) Urine Fentanyl Screen Neg (NEGATIVE) Urine Barbiturates Screen Neg (NEGATIVE) Urine Phencyclidine Screen Neg (NEGATIVE) Urine Amphetamines Screen Neg (NEGATIVE) Urine Benzodiazepines Screen Neg (NEGATIVE) Urine Cocaine Screen Neg (NEGATIVE) Urine Cannabinoids Screen Neg (NEGATIVE) Other Laboratory Tests 10/23/24 05:56 Brief Hx & Hospital Course: 64-year-old female with a history of hypertension hypercholesterolemia rheumatoid arthritis history of alcohol abuse chronic pain syndrome presented with a generalized weakness and admitted found to have urinary tract infection treated with Rocephin. Hypokalemia and hypo natremia resolved with the IV fluids. Given [place] 10 for chronic pain syndrome patient has rheumatoid arthritis with a right shoulder pain and left leg pain and back pain and the treatment of Dr. Cisneros. At the time of discharge patient feels better stable vital signs discharged home on Cipro for UTI and [place] 10 for the chronic pain she will follow up with the primary Dr. Consults/Reason for consult None Operations or Procedures None Condition at Discharge: Fair Final Diagnosis/Problems List Generalized weakness secondary to urinary tract infection Acute UTI: Rocephin Hyponatremia Hypokalemia Hypertension Hypercholesterolemia Possible flare-up of rheumatoid arthritis with right shoulder pain left leg pain and back pain, patient under the treatment of Dr. Burroughs. History of alcohol abuse Chronic Pain syndrome [place] 10 q.6 Discharge Disposition: Home Discharge Instruct/Medications Diet: Cardiac 2g Na,low cholest Activity: Light activity Follow Up/Referral: Follow up with the primary Dr Dr. Dior in one week Resume all your previous home meds Medications: [place] Cipro Transmitted to [facility] Scheduled Amlodipine Besylate (Norvasc Tablet), 5 MG PO DAILY Ascorbic Acid (Vitamin C Tablet), 500 MG PO DAILY, (Reported) Baclofen (Baclofen), 10 MG PO BID, (Reported) Benazepril Hcl (Benazepril Hcl), 20 MG PO DAILY, (Reported) Ciprofloxacin Hcl (Cipro), 500 MG PO BID Ciprofloxacin Hcl (Cipro), 1 TAB PO BID Ferrous Sulfate (Ferosul), 1 TAB PO DAILY, (Reported) Gabapentin (Gabapentin), 600 MG PO BID, (Reported) Gabapentin (Gabapentin), 1 TAB PO TID, (Reported) Pantoprazole Sodium Sesquihydr (Protonix), 40 MG PO DAILY, (Reported) Pantoprazole Sodium Sesquihydr (Pantoprazole Sodium), 1 TAB PO DAILY, (Reported) Simvastatin (Simvastatin), 20 MG PO QPM, (Reported) Venlafaxine Hydrochloride (Venlafaxine Hcl), 75 MG PO BID, (Reported) Scheduled PRN Hydrocodone-Acetaminophen (Hydrocodone Bitartrate/AC 5-325 mg), 1 TAB PO Q6HP PRN Hydrocodone-Acetaminophen (Hydrocodone Bitartrate/AC 10-325 mg), 1 TAB PO Q6HP PRN for PAIN SCALE 7 THRU 10, (Reported) Hydrocodone-Acetaminophen (Hydrocodone Bitartrate/AC 10-325 mg), 1 TAB PO QID PRN Miscellaneous Medications Abaloparatide (Tymlos), (Reported) Calcium Acetate (Phoslo Capsule), 667 MG PO, (Reported) Cholecalciferol (D3), Unknown Dose PO, (Reported) 35 (Time taken for discharge summary 35 minutes) Discharge Statement: "Patient was advised to return to the ER or call 911 if any headaches, dizziness, shortness of breath, chest pain, abdominal pain, bleeding, fevers, or worsening of medical condition. Patient was counseled about treatment plan, medications, possible side effects, patientverbalized understanding. All questions were answered to the best of my ability. This discharge took greater then 30 minutes in planning, reviewing documentation, counseling the patient, and discussing with other team members." ASSESSMENT ASSESSMENT Hospital Course Improved Assessment Generalized weakness secondary to urinary tract infection Acute UTI: Rocephin Hyponatremia Hypokalemia Hypertension Hypercholesterolemia Possible flare-up of rheumatoid arthritis with right shoulder pain left leg pain and back pain, patient under the treatment of Dr. Burroughs. History of alcohol abuse Chronic Pain syndrome [place] 10 q.6 Date of Service: Oct 25, 2024 Billing Provider: JANI OVALLES MD Common Visit Codes: [id number] DISCH DAY >30min JANI OVALLES MD Oct 25, 2024 12:30
[2024-10-25 12:40] VITALS: BP 117/60; PULSE 97; RESP 17; TEMP 98.1; O2SAT 94
[2024-10-25 13:06] VITALS: BP 120/56; TEMP 36.7
== END 2024-10-25 14:10 | disposition home or self-care (01) | DRG 690 ==
LOC: ER 09:44 → OVERFLOW 16:12 → WEST WING 23:49
PROVIDERS: ADMIT Family Medicine; ATTEND Family Medicine
DX: N30.00 Acute cystitis without hematuria (principal); E87.1 Hypo-osmolality and hyponatremia; Z68.45 Body mass index [BMI] 70 or greater, adult; E66.9 Obesity, unspecified; I10 Essential (primary) hypertension; M06.811 Other specified rheumatoid arthritis, right shoulder; E78.00 Pure hypercholesterolemia, unspecified; E87.6 Hypokalemia; M79.7 Fibromyalgia; G89.4 Chronic pain syndrome; M79.605 Pain in left leg; M54.9 Dorsalgia, unspecified; Z83.3 Family history of diabetes mellitus; Z91.040 Latex allergy status; Z88.5 Allergy status to narcotic agent
CPT/HCPCS: 36415; 71045; 80048; 80053; 80307; 81001; 83880; 84484; 85025; 87086; 93005; G0378; J2405

== ENCOUNTER 2024-12-16 10:37 | Outpatient (CLI) | payer OTHER, MEDICAID ==
[~2024-12-16] VITALS: Ht 30.5 cm; Wt 0.5 kg
[~2024-12-16 10:37] MED LIST changes: +FERR325T20 PO; +GABA800T97 PO; +HYDR-4798 PO; +PANT40T PO; +[UNRECOGNIZED DRUG - CODE]
[2024-12-16] MEDS ORDERED: IOHEXOL 350 MG/ML 100ML IJ ONE (10:38)
[2024-12-16] MEDS ORDERED: BUPIVACAINE HCL 0.25% P/F 10 ML VIAL ONE (11:06)
[2024-12-16] MEDS ORDERED: methylPREDNISolone ACETATE 80 MG/ML VL ONE (11:06)
[2024-12-16] MEDS ORDERED: LIDOCAINE 2%HCL (LOCAL ANESTH.) INJ 10ml MDV ONE (11:06)
--- NOTE | 2024-12-16 12:14 | DVH ---
PROCEDURE: Joint injection Procedural Personnel Attending physician(s): Kyler Chang Fellow physician(s): None Resident physician(s): None Advanced practice provider(s): None Pre-procedure diagnosis: Right shoulder arthritis Post-procedure diagnosis: Same Indication: Pain Additional clinical history: None Complications: No immediate complications. IMPRESSION: Image-guided diagnostic and therapeutic right shoulder joint injection. Plan: The patient tolerated the procedure well. The patient was transferred to the recovery area for an hour of observation. PROCEDURE SUMMARY: - Right shoulder joint injection with fluoroscopic guidance - Additional procedure(s): None PROCEDURE DETAILS: Pre-procedure Consent: Informed consent for the procedure including risks, benefits and alternatives was obtained a nd time-out was performed prior to the procedure. Preparation: The site was prepared and draped using maximal sterile barrier technique including cutan eous antisepsis. Anesthesia/sedation Level of anesthesia/sedation: No sedation Anesthesia/sedation administered by: Not applicable Total intra-service sedation time (minutes): Not applicable. Joint injection The patient was positioned supine. Local anesthesia was administered. Under image guidance, a needle was advanced into the joint space, with intra-articular position confirmed with arthrography. Injecti on was performed. Needle: 22 gauge, 3.5 inch Contrast administered: 5 mL of Omnipaque 350 Anesthetic administered: 9 mL of 0.25% bupivacaine Medication administered: 80 mg of methylprednisolone Findings: Appropriate glenohumeral joint space opacification following needle repositioning Closure The needle was removed and hemostasis was achieved with manual compression. A sterile bandage was román lied. Contrast Contrast agent: Omnipaque 350 Contrast volume (mL): 5 Radiation Dose Fluoroscopy time (minutes): 0.5 Reference air kerma (mGy): 3.30 Kerma area product (uGy-m2): 11.01 Additional Details Additional description of procedure: None Registry event: V/3/g Device used: None Equipment details: None Unique Device Identifiers: Not available Specimens removed: None Estimated blood loss (mL): Less than 10 Standardized report: [email or web address] Attestation Signer name: Kyler Chang I attest that I was present for the entire procedure. I reviewed the stored images and agree with the report as written.
[2025-01-19] MEDS ORDERED: IBUP-1454 PO (09:25)
[2025-01-19] MEDS ORDERED: LOSA-534 PO (09:25)
== END 2024-12-16 17:00 | disposition home or self-care (01) ==
LOC: XYW 10:37
PROVIDERS: ATTEND Physician Assistant Medical
DX: M19.011 Primary osteoarthritis, right shoulder (principal); M75.111 Incomplete rotator cuff tear or rupture of right shoulder, not specified as traumatic; F32.A Depression, unspecified; Z98.51 Tubal ligation status; Z87.891 Personal history of nicotine dependence; Z88.5 Allergy status to narcotic agent; Z91.040 Latex allergy status; Z83.3 Family history of diabetes mellitus
CPT/HCPCS: 20610; 77002; J1010; J2003; J3490; Q9967; 73020

== ENCOUNTER → 2024-12-21 | Outpatient (CLI) | payer OTHER ==
[2024-12-21 13:54] LABS: Urine Protein, UAD Negative (Negative)
== END | disposition home or self-care (01) ==
LOC: LAB 13:40
PROVIDERS: ATTEND Urology
DX: N39.9 Disorder of urinary system, unspecified (principal); Z79.899 Other long term (current) drug therapy
CPT/HCPCS: 81001; 87086

== ENCOUNTER → 2025-01-18 | Day surgery (SDC) | payer OTHER, MEDICAID ==
[~2025-01-18] MED LIST changes: +IBUP-1454 PO; +LOSA-534 PO
[2025-01-18 14:43] LABS: Hematocrit 34.6 % (36.0-46.0); Hemoglobin 11.9 g/dL (12.2-16.2); Mean Corpuscular Hemoglobin 31.4 pg (28.0-32.0); Mean Corpuscular Volume 91.6 fL (80.0-100.0); Nucleated Red Blood Cells % 0.0 %
[2025-01-18 15:03] LABS: INR 1.0 (0.9-1.15); Partial Thromboplastin Time 29.5 SEC (24.5-34.5); Prothrombin Time 10.6 sec (9.3-11.8)
[2025-01-18 15:08] LABS: Anion Gap 9 (5-15); Carbon Dioxide 28 mmol/L (20-31)
[2025-01-18 15:10] LABS: Calcium 8.8 mg/dL (8.7-10.4)
[2025-01-18 15:11] LABS: Chloride 91 mmol/L (98-107); Potassium 3.4 mmol/L (3.5-5.1); Sodium 128 mmol/L (136-145)
[2025-01-18 15:15] LABS: BUN/Creatinine Ratio 7.6 (10.0-20.0)
[2025-01-18 15:16] LABS: Blood Urea Nitrogen 5 mg/dL (9-23); Glucose 108 mg/dL (74-106)
== END | disposition home or self-care (01) ==
LOC: LAB 14:28
PROVIDERS: ATTEND Urology
DX: Z01.812 Encounter for preprocedural laboratory examination (principal); D17.71 Benign lipomatous neoplasm of kidney
CPT/HCPCS: 36415; 80048; 85025; 85610; 85730

== ENCOUNTER 2025-01-21 07:01 | Outpatient (CLI) | payer OTHER, MEDICAID ==
[2025-01-21] VITALS (7 sets, daily range): BP systolic 134–155; BP diastolic 62–82; PULSE 78–83; RESP 12–20; O2SAT 92–98
[~2025-01-21] VITALS: Ht 160 cm; Wt 80.3 kg
[~2025-01-21 07:01] MED LIST changes: -AML5T PO; -BENA-36 PO; -CIPR-173 PO; -GABA-339 PO; -HYDR-4902 PO; -PANT40T PO; -PANT40TA2 PO; -VENL1TAB99 PO
[2025-01-21] MEDS ORDERED: LIDOCAINE 2%HCL (LOCAL ANESTH.) INJ 20ML MDV ONE (09:16)
[2025-01-21] MEDS ORDERED: MIDAZOLAM HCL 2MG/2ML 2ml VIAL (1mg/ml) ONE (09:16)
[2025-01-21] MEDS ORDERED: fentaNYL CITRATE 100 MCG/2 ML VL ONE (09:16)
[2025-01-21] MEDS ORDERED: IODIXANOL 320MG/ML 100ML BTL IV ONE (09:54)
--- NOTE | 2025-01-21 11:37 | DVH ---
XY ARTER/VENOUS EMBOLIZATION, HISTORY: RENAL ANGIOGRAM for EMBOLIZATION of right AML PROCEDURE: Informed consent was obtained .The patient was positioned supine on the interventional tab le. The right groin was prepped with chlorhexidine which was allowed to dry and then draped sterilely . Time out was performed. The right common femoral artery was accessed with real-time ultrasound guid ance using a micropuncture set, an image documenting patency recorded to PACS, and a 6 Fr vascular sh eath placed. The right renal artery was accessed with a SOS catheter and an angiogram was performed. However due t o the dense atherosclerotic calcifications at the right renal artery origin, the access was unstable and a microwire was unable to access the vessel. The catheter/sheath were removed and the arteriotom y closed using an Angioseal device. No immediate complication was identified. DAP 885 FLUOROSCOPY TIME: 9.7 minutes. CONTRAST USED: 35 mL Isovue 370. SEDATION: Dr. Pippa Amezquita was personally responsible for the administration of moderate sedation during the procedure performed, including the use of an independent trained observer who had no other duties during the procedure. The drugs utilized were IV fentanyl and versed (see nursing log for details). The total time of supervision by the attending physician was approximately 30 minutes. FINDINGS: Dense atherosclerotic calcification of the right renal artery orgin with post stenotic dila tion of the right renal artery. 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 IMPRESSION: Dense atherosclerotic calcification of the right renal artery orgin with post stenotic dilation of th e right renal artery. 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 PLAN: Recommend surgical evaluation for partial nephrectomy.
--- NOTE | 2025-01-24 07:24 | ECG ---
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
== END 2025-01-21 17:00 | disposition home or self-care (01) ==
LOC: CATH 07:01
PROVIDERS: ATTEND Radiology Diagnostic Radiology
DX: I70.1 Atherosclerosis of renal artery (principal); N39.41 Urge incontinence; C92.00 Acute myeloblastic leukemia, not having achieved remission; D17.71 Benign lipomatous neoplasm of kidney; I44.7 Left bundle-branch block, unspecified; I49.1 Atrial premature depolarization
CPT/HCPCS: 37243; 93005; C1725; C1760; C1769; C1887; C1894; J1644; J2250; J3010; Q9967; 36251; 99152

== ENCOUNTER 2025-01-25 08:20 | Outpatient (CLI) | payer OTHER, MEDICAID ==
[2025-01-25 09:01] LABS: Anion Gap 8 (5-15); Calcium 8.9 mg/dL (8.7-10.4); Carbon Dioxide 30 mmol/L (20-31); Potassium 4.3 mmol/L (3.5-5.1)
[2025-01-25 09:07] LABS: BUN/Creatinine Ratio 7.4 (10.0-20.0); Chloride 97 mmol/L (98-107); Glucose 105 mg/dL (74-106); Sodium 135 mmol/L (136-145)
[2025-01-25 09:10] LABS: Blood Urea Nitrogen 5 mg/dL (9-23)
== END 2025-01-25 17:00 | disposition home or self-care (01) ==
LOC: LAB 08:20
PROVIDERS: ATTEND Internal Medicine
CPT/HCPCS: 36415; 80048

== ENCOUNTER 2025-03-30 08:36 | Day surgery (SDC) | payer OTHER, MEDICAID ==
[2025-03-29 10:21] LABS: Hematocrit 33.9 % (36.0-46.0); Hemoglobin 11.4 g/dL (12.2-16.2); Mean Corpuscular Hemoglobin 30.2 pg (28.0-32.0); Mean Corpuscular Volume 89.3 fL (80.0-100.0); Nucleated Red Blood Cells % 0.1 %
[2025-03-29 10:31] LABS: INR 0.98 (0.9-1.15); Partial Thromboplastin Time 28.2 SEC (24.5-34.5); Prothrombin Time 10.4 sec (9.3-11.8)
[2025-03-29 10:42] LABS: Alanine Aminotransferase 16 U/L (7-40); Albumin 3.9 g/dL (3.2-4.8); Alkaline Phosphatase 109 U/L (46-116); Anion Gap 10 (5-15); BUN/Creatinine Ratio 7.6 (10.0-20.0); Calcium 9.4 mg/dL (8.7-10.4); Carbon Dioxide 29 mmol/L (20-31); Potassium 3.9 mmol/L (3.5-5.1); Total Protein 7.2 g/dL (5.7-8.2)
[2025-03-29 10:46] LABS: Blood Urea Nitrogen 6 mg/dL (9-23); Chloride 92 mmol/L (98-107); Glucose 115 mg/dL (74-106); Sodium 131 mmol/L (136-145)
[2025-03-29 10:47] LABS: Bilirubin, Total 0.2 mg/dL (0.2-1.0)
[~2025-03-30] VITALS: Ht 160 cm; Wt 75.3 kg
[~2025-03-30 08:36] MED LIST changes: +CHOLCAP4 PO; -FERR325T20 PO; +GABA300T4 PO; -GABA800T97 PO; -IBUP-1454 PO; +OMEG-28 PO; +PANT40TA2 PO; +POTA99TA3 PO; -[UNRECOGNIZED DRUG - CODE]; +[UNRECOGNIZED DRUG - CODE] PO
[2025-03-30] MEDS: ceFAZolin 2 GM/D5W50ml 50 ML IV ONE (08:57)
[2025-03-30 09:36] LABS: Urine Protein, UAD Negative (Negative)
[2025-03-30] MEDS ORDERED: ONDANSETRON HCL 4 MG/2 ML VIAL ONE (09:40)
[2025-03-30] MEDS ORDERED: KETOROLAC TROMETH 30 MG/ML 1ML VIAL ONE (09:40)
[2025-03-30] MEDS ORDERED: LIDOCAINE 1% INJ PF 5ML AMP ONE (09:40)
[2025-03-30] MEDS ORDERED: GLYCOPYRROLATE 0.2 MG/ML 1ML VIAL ONE (09:40)
[2025-03-30] MEDS ORDERED: PROPOFOL 10 MG/ML 20 ML IV ONE (09:40)
[2025-03-30] MEDS ORDERED: KETAMINE 50mg/ML 1ml syringe ONE (09:41)
[2025-03-30] MEDS ORDERED: ESMOLOL HCL 10 ML IV ONE (10:00)
--- NOTE | 2025-03-30 10:06 | DVHOP2 ---
Operative Report - 2 Report Details Date: 03/30/25 Preop Diagnosis: 1. Left foot hammer toe 2-5 2. Left foot exostosis dorsal foot 3. Left foot pain Postop Diagnosis: Same as preop Surgeon: Carson Love MD Anesthesiologist: See anesthesia Anesthesia: Mac Consent: The patient was informed of the risks and benefits of the procedure. These include but are not limited to complications of anesthesia, postoperative infection, incomplete relief of symptoms, recurrence of symptoms, damage to blood vessels, nerves and tendons, deep venous thrombosis, pulmonary embolism an d possible need for repeat surgery in the future. Complications: None Estimated Blood Loss: Minimal Fluids: See anesthesia Findings: Consistent with diagnosis Indications for Surgery: Worsening foot pain Name of Procedure Performed 1. Right second toe flexor tenotomy (96819) 2. Right third toe flexor tenotomy (69388) 3. Right fourth toe flexor tenotomy (23505) 4. Right fifth toe flexor tenotomy (77148) 5. Right foot midfoot exostectomy (73578) Procedure Details Procedure Details: PRE-PROCEDURE INFORMATION: In the pre-op holding area, the extremity to be operated on was clearly marked and the patient verified correct laterality of the marking. The patient was transferred to the OR table and placed in a supine position. A timeout was performed in which identification of the correct patient, procedure, location, and materials was done. The right foot and leg were prepped and draped in normal sterile fashion. DESCRIPTION OF PROCEDURE: Attention was directed to the right 2nd toe where approximately 3 cc of 1% lidocaine was injected. The toe was then prepped with ChloraPrep. Using a 18 gauge needle, the toe was extended and a sweeping motion was made on the FDL. It was noted that the contracture of the digit was then relieved after the flexor tendon was released. Attention was directed to the right 3rd toe where approximately 3 cc of 1% lidocaine was injected. The toe was then prepped with ChloraPrep. Using a 18 gauge needle, the toe was extended and a sweeping motion was made on the FDL. It was noted that the contracture of the digit was then relieved after the flexor tendon was released. Attention was directed to the right 4th toe where approximately 3 cc of 1% lidocaine was injected. The toe was then prepped with ChloraPrep. Using a 18 gauge needle, the toe was extended and a sweeping motion was made on the FDL. It was noted that the contracture of the digit was then relieved after the flexor tendon was released. Attention was directed to the right 5th toe where approximately 3 cc of 1% lidocaine was injected. The toe was then prepped with ChloraPrep. Using a 18 gauge needle, the toe was extended and a sweeping motion was made on the FDL. It was noted that the contracture of the digit was then relieved after the flexor tendon was released. Attention was directed to the right dorsal foot where the exostosis was located. A stab incision was made just medial to the exostosis. The incision was deepened through blunt and sharp dissection. Care was taken to avoid any neurovascular and tendinous structures. Using the Arthrex MIS bur, the exostosis was then removed in its entirety. After the bur was used the exostosis was no longer felt clinically. The incision was closed with a 4-0 nylon. All surgical wounds were irrigated copiously with saline and closed in layers with the aforementioned suture material. A dry sterile dressing was placed on the surgical extremity. The patient was placed in a postop shoe POSTOPERATIVE INFORMATION: The patient tolerated the above noted procedure and anesthesia well and was transferred to the PACU with vital signs stable, and vascular status intact with capillary refill intact to all digits. Postoperative instructions reviewed in detail with the patient with written instructions provided. Patient will return to clinic in approximately 10-14 days for first postoperative visit. Patient has the number of the clinic and was instructed to call prior to that time should any problems, questions, or concerns arise. Condition Good Disposition Home Visit Coding Podiatry Date of Service if different f: Mar 30, 2025 Billing Provider: CARSON LOVE DPM Podiatry Common Visit Codes: PROCEDURE ONLY CARSON LOVE DPM Mar 30, 2025 10:06
[2025-03-30] MEDS ORDERED: fentaNYL CITRATE 100 MCG/2 ML VL ONE (10:10)
[2025-03-30 10:11] VITALS: PULSE 114; RESP 12; TEMP 97.9; O2SAT 100
[2025-03-30] MEDS: ACETAMINOPHEN IV 1000 MG/100ML (10MG/ML) IV ONE (10:20)
[2025-03-30] MEDS: ONDANSETRON HCL 4 MG/2 ML VIAL IV PRN (10:22)
[2025-03-30] MEDS: LIDOCAINE 1% HCL (LOCAL ANESTH.) INJ 20ML MDV ONE (10:22)
[2025-03-30] MEDS ORDERED: FLUMAZENIL 0.1 MG/ML INJ 10ML MDV IV PRN (10:30)
[2025-03-30] MEDS ORDERED: hydrALAZINE HCL 20 MG/ML VL IV PRN (10:30)
[2025-03-30] MEDS ORDERED: NALOXONE HCL 0.4 MG/ML VIAL IV PRN (10:30)
[2025-03-30] MEDS ORDERED: HYDROmorphone HCL 2 MG/ML VL/or syr ONE (10:31)
[2025-03-30] MEDS: fentaNYL CITRATE 100 MCG/2 ML VL IV PRN (10:38)
[2025-03-30] MEDS: ACETAMINOPHEN IV 100 ML IV ONE (10:41)
[2025-03-30] MEDS: fentaNYL CITRATE 100 MCG/2 ML VL ONE (10:42)
[2025-03-30] MEDS: ONDANSETRON HCL 4 MG/2 ML VIAL ONE (10:42)
[2025-03-30] MEDS: HYDROmorphone HCL 2 MG/ML VL/or syr IV PRN (10:49)
[2025-03-30 11:21] VITALS: BP 137/69; PULSE 83; RESP 14; O2SAT 98
== END 2025-03-30 11:31 | disposition home or self-care (01) ==
LOC: SUR 08:36
PROVIDERS: ATTEND Podiatrist
DX: M20.42 Other hammer toe(s) (acquired), left foot (principal); M62.472 Contracture of muscle, left ankle and foot; D16.32 Benign neoplasm of short bones of left lower limb; M89.9 Disorder of bone, unspecified; G89.29 Other chronic pain; I10 Essential (primary) hypertension; K21.9 Gastro-esophageal reflux disease without esophagitis; E66.3 Overweight; Z68.29 Body mass index [BMI] 29.0-29.9, adult; Z79.899 Other long term (current) drug therapy; Z86.2 Personal history of diseases of the blood and blood-forming organs and certain disorders involving the immune mechanism; Z98.891 History of uterine scar from previous surgery; Z87.891 Personal history of nicotine dependence; Z98.890 Other specified postprocedural states; Z88.5 Allergy status to narcotic agent
CPT/HCPCS: 28010; 28122; 36415; 80053; 81001; 85025; 85610; 85730; J0690; J1100; J1171; J1885; J2003; J2405; J2704; J3010; J0131